=== PATIENT | female | born 1955 | race Caucasian/White ===

== ENCOUNTER 2024-03-13 20:48 | Outpatient (OUT) | payer MEDICARE, SELFPAY | END 2024-03-13 20:49 | disposition home or self-care (01) | LOC: SLEEP 20:49 | PROVIDERS: PCP Internal Medicine; Visit Provider Internal Medicine | DX: G47.33 Obstructive sleep apnea (adult) (pediatric) (principal); G47.11 Idiopathic hypersomnia with long sleep time | CPT/HCPCS: 95810 ==

== ENCOUNTER 2024-04-24 12:36 | Outpatient (OUT) | payer MEDICARE, SELFPAY ==
--- NOTE | 2024-04-24 12:42 | CT_ITS ---
[address] [address] Patient Name: NETTA STUART MRN: [id number] date: 1955 Sex: F Assigned Patient Location: CT Current Patient Location: CT Accession/Order Number: [id number] Exam Date: 04/24/2024 12:50 Report Date: 04/24/2024 15:11 At the request of: DENNIS CONKLIN Procedure: CT lung screening low-dose EXAMINATION: CT lung screening low-dose HISTORY: lung cancer screening COMPARISON: 03/15/2023 TECHNIQUE: Axial, Coronal, and Sagittal images were created without the administration of IV contrast material. Dose reduction techniques were achieved by using automated exposure control and/or adjustment of mA and/or kV according to patient size and/or use of iterative reconstruction technique. FINDINGS: LUNGS: Moderate diffuse bilateral centrilobular emphysema with upper lobe predominance. Scattered subcentimeter pulmonary nodules. New 6.4 mm groundglass opacity noted in the right upper lobe axial image #59. No bronchiectasis or peribronchial thickening. Calcified tracheal bronchial tree. Stable scattered linear opacities likely atelectasis and/or scar PLEURA: No mass, effusion, or pneumothorax. VASCULATURE: No abnormality. HALI: No mass or pathologic adenopathy. MEDIASTINUM: No mass or pathologic adenopathy. CARDIAC: No enlargement, pericardial thickening, or significant calcification. CORONARY ARTERIES: Coronary calcifications are mild. AORTA: No aneurysm or dissection. CHEST WALL: No mass or axillary adenopathy BONES: No bone lesion or fracture. Bilateral shoulder arthroplasty LIMITED ABDOMEN: No suspicious findings. Limited images of the upper abdomen. OTHER: Negative. CT/CT lung screening low-dose IMPRESSION: LUNG SCREENING: Lung-RADS Category 2- Benign Appearance or Behavior. Nodules with a very low likelihood of becoming a clinically active cancer due to size or lack of growth. 2. Continue annual screening with LDCT in 12 months. Electronically authenticated by: ALMA BANEGAS Date: 04/24/2024 15:11
== END 2024-04-24 12:37 | disposition home or self-care (01) ==
LOC: CT 12:36
PROVIDERS: Visit Provider Internal Medicine
DX: Z87.891 Personal history of nicotine dependence (principal); Z12.2 Encounter for screening for malignant neoplasm of respiratory organs
CPT/HCPCS: 71271

== ENCOUNTER 2025-04-03 10:16 | Outpatient (OUT) | payer MEDICARE, SELFPAY ==
[2025-04-03 10:36] LABS: Basophils Percent Auto 0.3 % (0.2-2.0); Eosinophils Percent Auto 0.4 % (0.9-7.0); Hematocrit 38.4 % (36.0-48.0); Hemoglobin 12.7 g/dL (12.0-16.0); Immature Granulocytes Pct Auto 1.1 % (0.0-0.5); Lymphocytes Absolute Auto 1.1 10^3/uL (1.2-3.8); Lymphocytes Percent Auto 12.6 % (20.5-60.0); Mean Corpuscular HGB Conc 33.1 g/dL (29.9-35.2); Mean Corpuscular Hemoglobin 31.8 pg (26.7-34.0); Mean Platelet Volume 9.9 fL (9.5-13.5); Monocytes Absolute Auto 0.6 10^3/uL (0.3-0.8); Monocytes Percent Auto 6.7 % (1.7-12.0); Neutrophils Absolute Auto 7.1 10^3/uL (1.4-6.5); Neutrophils Percent Auto 78.9 % (43.0-75.0); Platelet Count 250 10^3/uL (150-450); Red Cell Distribution Width 13.3 % (11.0-15.0)
== END 2025-04-03 10:17 | disposition home or self-care (01) ==
LOC: LAB 10:19
PROVIDERS: Visit Provider Internal Medicine
DX: J43.2 Centrilobular emphysema (principal); A49.8 Other bacterial infections of unspecified site
CPT/HCPCS: 36415; 85025; 87015; 87070; 87077; 87102; 87106; 87116; 87186; 87205; 87206

== ENCOUNTER 2025-04-08 14:21 | Outpatient (OUT) | payer MEDICARE, SELFPAY ==
--- NOTE | 2025-04-08 14:24 | CT_ITS ---
The [address] [address] Patient Name: NETTA STUART MRN: [id number] date: 1955 Sex: F Assigned Patient Location: CT Current Patient Location: CT Accession/Order Number: [id number] Exam Date: 04/08/2025 15:09 Report Date: 04/08/2025 15:16 At the request of: DENNIS CONKLIN DO Procedure: CT chest wo con CT chest wo con 04/08/2025 2:34 PM SIGN AND SYMPTOMS: Chronic cough for 7 months TECHNIQUE: Multidetector CT axial slices of the chest were obtained without IV contrast. Multiplanar reformats were performed and viewed on a separate workstation and reviewed to further define anatomy and possible pathology. CT was performed with one or more of the following dose reduction techniques: Automated exposure control, adjustment of the mA and/or kV according to patient size, or use of iterative reconstruction technique. COMPARISON: 04/24/2024.. FINDINGS: Lower neck: Thyroid gland within normal limits, no supraclavicle adenopathy. Vessels: Atherosclerotic changes are noted in the thoracic aorta and coronary arteries. Mediastinum and Sherin: There is a small hiatal hernia with gastric fundus in the lower mediastinum. Heart: Normal size. No pericardial effusion. Airways: Within normal limits Lungs: There is a new pleural-based area of consolidation/groundglass attenuation posteriorly and medially in the right lower lobe emphysematous changes are noted throughout the lung parenchyma. There is linear scarring in the right middle lobe. There is nodular opacity in the left lower lobe which is noncalcified measuring 1.4 cm in greatest dimension. There is a second pleural-based nodular area measuring 2.3 cm in greatest dimension adjacent to this. There are subtle areas of groundglass attenuation in the left lower lobe which are new. Pleura: Within normal limits. Chest Wall: Within normal limits. Upper Abdomen: Postsurgical changes suggest prior gastric bypass. There is evidence of prior cholecystectomy. Bones: Degenerative changes are noted in the thoracic spine. There is bilateral shoulder arthroplasty hardware. CT/CT chest wo con IMPRESSION: There is nodular opacity in the left lower lobe which is noncalcified measuring 1.4 cm in greatest dimension. There is a second pleural-based nodular area measuring 2.3 cm in greatest dimension adjacent to this. Follow-up with nuclear medicine PET CT is recommended as malignancy is not excluded. Additional areas of groundglass attenuation and pleural based scarring are noted to be infectious or inflammatory in nature. These are new when compared to the prior exam. Impression dictated by: Joey Miner M.D. 04/08/2025 3:16 PM Dictation Location: [place] [address] Electronically authenticated by: [id number] Y Date: 04/08/2025 15:16
== END 2025-04-08 14:22 | disposition home or self-care (01) ==
LOC: CT 14:21
PROVIDERS: Visit Provider Internal Medicine
DX: R91.8 Other nonspecific abnormal finding of lung field (principal)
CPT/HCPCS: 71250

== ENCOUNTER 2025-04-24 09:39 | Outpatient (OUT) | payer MEDICARE, SELFPAY ==
--- OUTSIDE RECORDS SUMMARY | 2025-04-24 09:46 | XMS_ITS | CCD ---
Author Organization [facility] Care Team Providers Care Human Resources Safety Manager Name Role Phone ROBEL SHANNON Primary Care Unavailable SELF, REFERRED Referring Unavailable ELTAHAWY, EHAB A Admitting Unavailable ELTAHAWY, EHAB A Attending Unavailable SAMSA ., DENNIS Admitting Unavailable SAMSA ., DENNIS Attending Unavailable SAMSA ., DENNIS Consulting Unavailable SAMSA ., DENNIS Admitting Unavailable SAMSA ., DENNIS Attending Unavailable SHIVA, DR ANDERSON Primary Care Unavailable MERRILLEBGWEN, DR SANGEETHA Abebe Consulting Unavailable SAMSA ., DENNIS Consulting Unavailable NIVIA, DR DE LA FUENTE Admitting Unavailable NIVIA, DR DE LA FUENTE Attending Unavailable SHIVA, DR ANDERSON Primary Care Unavailable NIVIA, DR DE LA FUENTE Consulting Unavailable DO, ERNEE Admitting Unavailable RENEE STORY Attending Unavailable SHIVA, DR ANDERSON Primary Care Unavailable RENEE STORY Consulting Unavailable SAMSA ., DENNIS Admitting Unavailable SAMSA ., DENNIS Attending Unavailable BASSAM, DR ALMA Hernández Consulting Unavailable SAMSA ., DENNIS Consulting Unavailable Marcellus Dumas Unavailable Brigitte Mariano Unavailable LOVE Mariano Attending Provider Devin Raymundo Primary Care Provider ESME Quevedo Attending Provider Vicky Quevedo Attending Unavailable Vicky Quevedo Admitting Unavailable Brigitte Mariano Admitting Unavailable Brigitte Mariano Attending Unavailable SHAHBAZ AMIN Attending Unavailable ELOISA, SABEENA WHITESIDE Referring Unavailable ROBEL SHANNON JR Primary Care Unavailable ELOISA SABEENA WHITESIDE Referring Unavailable ROBEL SHANNON JR Primary Care Unavailable ELOISA, SABEENA WHITESIDE Referring Unavailable ROBEL SHANNON JR Primary Care Unavailable ROBEL SHANNON JR Primary Care Unavailable ADONAY OBANDO Attending Unavailable MISSY HOWELL Attending Unavailable MISSY HOWELL Referring Unavailable VALONE JR, ROBEL Jerry Primary Care Unavailable ELOISA, SABCHEYENNEA WHITESIDE Referring Unavailable VALONE JR, ROBEL L Primary Care Unavailable ELOISA, SABEENA WHITESIDE Referring Unavailable VALONE JR, ROBEL L Primary Care Unavailable ELOISA, SABEENA WHITESIDE Referring Unavailable VALONE JR, ROBEL L Primary Care Unavailable VALONE JR, ROBEL L Referring Unavailable VALONE JR, ROBEL L Primary Care Unavailable VALONE, ROBEL L Referring Unavailable SHLOMO SEE Attending Unavailable Devin Raymundo Primary Care Provider [phone] AURELIA FRENCH Attending Unavailable VALONE JR, ROBEL L Referring Unavailable VALONE JR, ROBEL L Primary Care Unavailable ELOISA, SHAHBAZ MCGRATHBAL Attending Unavailable VALONE JR, ROBEL L Referring Unavailable VALONE JR, ROBEL L Primary Care Unavailable AURELIA FRENCH Attending Unavailable VALONE JR, ROBEL L Referring Unavailable VALONE JR, ROBEL L Primary Care Unavailable Valone ., Robel RIVERA Primary Care Provider RONALDO KNOX Attending Unavailable RONALDO KNOX Attending Unavailable OTF STONER Attending Unavailable VALONE JR, ROBEL L Referring Unavailable VALONE JR, ROBEL L Primary Care Unavailable Medications Current Medications Medication Drug Class(es) Dates Sig (Normalized) Sig (Original) [id number] 200 actuat albuterol 0.09 mg/actuat metered dose inhaler (16 sources) beta2-Adrenergic Agonist Start: 06-03-2024 Albuterol Sulfate Active INHALATION June 03, 2024 12:00am Start: 02-07-2006 ALBUTEROL 90 M CG/ACTUATION AEROSOL INHALER Use as directed four(4) times daily. 0 02/07/2006 Active take 2 puff(s) by in halation every four hours as needed albuterol (PROVENTIL HFA;VENTOLIN HFA) 90 mcg/actuation inhaler Inhale 2 puffs every 4 (four) hours as needed. Active ProAir HFA Activ e Comment on above: Use as directed four (4) times daily. ARIPiprazole 5 mg oral tablet (16 sources) Atypical Antipsychotic Start: take 5 mg by mouth once daily Aripiprazole Active 5 MG PO Daily June 03, 2024 12:00am Comment on above: Take 5 mg by mouth. atenolol 25 mg oral tablet (2 sources) beta-Adrenergic [place] Start: 4 take 25 mg by mouth twice daily Atenolol Active 25 MG PO Twice daily June 03, 2024 12:00am 24 hr buPROPion hydrochloride 150 mg extended release oral tablet (13 sources) Aminoketone Start: 4 take 300 mg by mouth once daily Bupropion Hcl Active 300 MG PO Daily June 03, 2024 12:00am Start: 02-07-2006 BUPROPION SR 1 50 MG TAB 0 02/07/2006 Active take 1 tablet by shoaib th every twenty-four hours buPROPion XL (WELLBUTRIN XL) 150 mg 24 hr tablet Oral for 30 Days Active Calcium Carbonate (11 sources) calcium carbonat e (CALTRATE 600 ORAL) Take 1,200 mg by mouth. Active calcium carbonat e (CALTRATE 600 ORAL) Take 1,200 mg by mouth. 0 Active take 2 tablets by mouth twice da mannie Caltrate 600 2 tablets Orally Twice a day Active carbidopa 25 mg / levodopa 100 mg oral tablet (20 sources) Aromatic Amino Acid Decarboxylation Inhibitor, Aromatic Amino Acid Start: 09-27-2024 End: 12-14-2025 take 1.5 tablets by mouth three times daily, then take 6 tablets by mouth in the morning, then take 10 tablets by mouth in the morning, then take 2 tablets by mouth in the evening carbidopa-levodopa (SINEMET) 25-100 mg per tablet Indications: Parkinson's disease without dyskinesia, with fluctuating manifestations (CMS-HCC) Take 1.5 tablets by mouth 3 (three) times a day for 360 days. 6 AM, 10 AM AND 2 PM 405 tablet 3 12/19/2024 12/14/2025 Active Start: 09-27-2024 End: 09-22-2025 take 1 tablet by mouth three times daily in the morning, then take 2 tablets by mouth in the evening carbidopa-levodopa (SINEMET CR) 25-100 mg per CR tablet Indications: Parkinson's disease without dyskinesia, with fluctuating manifestations (CMS-HCC) Take 1 tablet by mouth 3 (three) times a day for 360 days. 6 AM, 10 AM AND 2 PM 270 tablet 3 09/27/2024 09/22/2025 Active Start: 06-03-2024 Carbidopa-Levo dopa Active TAB PO June 03, 2024 12:00am Start: 03-26-2024 End: 09-27-2024 carbidopa-levodopa (SINEMET) 25-100 mg per tablet Indications: Parkinson's disease without dyskinesia, with fluctuating manifestations (CMS-HCC) Take 1 tablet four times daily (take 4 hours apart). 360 tablet 3 03/26/2024 09/27/2024 Discontinued (Reorder) Start: 03-26-2024 End: 09-27-2024 carbidopa-levodopa (SINEMET CR) 25-100 mg per CR tablet Indications: Parkinson's disease without dyskinesia, with fluctuating manifestations (CMS-HCC) Take 1 tablet four times daily (take 4 hours apart). 360 tablet 3 03/26/2024 09/27/2024 Discontinued (Reorder) Start: 09-25-2023 End: 03-26-2024 take 1 tablet by mouth three times daily carbidopa-levodopa (SINEMET) 25-100 mg per tablet Indications: Parkinson's disease (CMS-HCC) TAKE 1 TABLET BY MOUTH THREE TIMES DAILY 270 tablet 3 09/25/2023 03/26/2024 Discontinued Start: 09-11-2019 End: 03-26-2024 take 1 tablet by mouth three times daily carbidopa-levodopa (SINEMET CR) 25-100 mg per CR tablet Indications: Parkinson's disease TAKE 1 TABLET BY MOUTH THREE TIMES DAILY 270 tablet 3 09/25/2023 Active Carbidopa-Levodo pa 25-100 MG 1 tablet Orally as directed Active Comment on above: Take 1 tablet by shoaib th three times daily. cephalexin 500 mg oral capsule (1 source) Cephalosporin Antibacterial Start: 0 take 1 capsule by mouth every twelve hours clonazePAM 0.5 mg oral tablet (15 sources) Benzodiazepine Start: 3 End: 5 take 1 tablet by mouth once daily at bedtime clonazePAM (KlonoPIN) 0.5 mg tablet Indications: REM sleep behavior disorder TAKE ONE TABLET BY MOUTH ONCE A DAY AT BEDTIME 30 MINUTES BEFORE BEDTIME 90 tablet 3 10/18/2024 Active take 1 tablet by shoaib th every twenty-four hours clonazePAM 0.5 MG 1 tablet at bedtime Orally Once a day Active dexamethasone 4 mg oral tablet (2 sources) Corticosteroid Start: 04-05-2024 End: 07-04-2024 take 1 tablet by mouth every week dexAMETHasone (DECADRON) 4 mg tablet Take 1 tablet (4 mg total) by mouth once a week for 90 days. 12 tablet 04/05/2024 07/04/2024 Active famotidine 40 mg oral tablet (13 sources) Histamine-2 Receptor Antagonist Start: 06-06-2022 take 1 tablet by mouth once daily famotidine (PEPCID) 40 mg tablet Take 1 tablet (40 mg total) by mouth nightly. 06/06/2022 Active FLUoxetine 20 mg oral capsule (6 sources) Serotonin Reuptake Inhibitor Start: 03-08-2018 FLUoxetine (PROZAC) 20 mg capsule Take 2 capsules by mouth. 03/08/2018 Active take 1 capsule by mo uth every twenty-four hours FLUoxetine HCl 40 MG 1 tablet Orally Onc e a day Active take 1 tablet by shoaib th every twenty-four hours FLUoxetine HCl 20 MG 1 tablet Orally Onc e a day Active Comment on above: Take 2 capsules by m outh. fluticasone propionate 0.05 mg/actuat metered dose nasal spray (15 sources) Corticosteroid Start: 06-03-2024 Fluticasone Propionate Active INTRANASAL June 03, 2024 12:00am Start: 09-20-2022 take 2 spray(s) nasa l route once daily fluticasone propionate (FLONASE) 50 mcg/actuation nasal spray USE 2 SPRAYS IN EACH NOSTRIL ONCE DAILY DIRECTED 09/20/2022 Active Start: 02-07-2006 End: 04-22-2021 FLONASE 50 MCG/ACTUATION ANNAMARIA AL SPRAY AEROSOL Use daily as directed. 0 02/07/2006 04/22/2021 Discontinued Fluticasone Prop ionate Active Comment on above: Use daily as directe d. 30 actuat fluticasone furoate 0.1 mg/actuat / umeclidinium 0.0625 mg/actuat / vilanterol 0.025 mg/actuat dry powder inhaler (2 sources) Anticholinergic, Corticosteroid, beta2-Adrenergic Agonist Start: 03-13-2019 take 1 puff(s) by mouth once daily fluticasone-umeclid in-vilanter (TRELEGY ELLIPTA) 100-62.5-25 mcg INL 1 PUFF PO QD 03/13/2019 Active Comment on above: INL 1 PUFF PO QD Fluticasone-Umeclidin- Vilanter (2 sources) Start: 06-03-2024 Fluticasone-Umeclid in-Vilanter (Trelegy Ellipta) 200-62.5-25 mcg blister with device Active INHALATION June 03, 2024 12:00am 24 hr metoprolol succinate 25 mg extended release oral tablet (15 sources) beta-Adrenergic [place] Start: 06-03-2024 take 25 mg by mouth once daily Metoprolol Succinate Active 25 MG PO Daily June 03, 2024 12:00am Start: 07-03-2022 take 1 tablet by shoaib every twenty-four hours in the morning metoprolol succinate XL (TOPROL XL) 25 mg 24 hr tablet Take 1 tablet (25 mg total) by mouth in the morning. 07/03/2022 Active Start: 02-07-2006 End: 04-22-2021 TOPROL XL 50 MG 24 HR TAB 2x daily 0 02/07/2006 04/22/2021 Discontinued take 1 tablet by shoaib every twenty-four hours Metoprolol Succinate ER 25 MG 1 tablet Orally Once a day Active Comment on above: 2x daily 24 hr mirabegron 50 mg extended release oral tablet (10 sources) beta3-Adrenergic Agonist Start: 06-03-2024 take 1 tablet by mouth once daily Mirabegron (Myrbetriq) 50 mg tablet extended release 24 hr Active 50 MG PO Daily June 03, 2024 12:00am take 2 tablets by mo [facility] every twenty-four hours in the morning MYRBETRIQ 25 mg tablet extended release 24 hr Take 2 tablets (50 mg total) by mouth in the morning. Active montelukast 10 mg oral tablet (13 sources) Leukotriene Receptor Antagonist Start: 06-26-2022 take 1 tablet by mouth in the morning montelukast (SINGULAIR) 10 mg tablet Take 1 tablet (10 mg total) by mouth in the morning. 06/26/2022 Active nitrofurantoin, macrocrystals 25 mg / nitrofurantoin, monohydrate 75 mg oral capsule (2 sources) Nitrofuran Antibacterial Start: 06-30-2023 take 1 capsule by mouth every twelve hours Macrobid 100 MG 1 cap(s) Orally bid for 5 day(s) Jun, Active pantoprazole 40 mg delayed release oral tablet (15 sources) Proton Pump Inhibitor Start: 06-03-2024 Pantoprazole Active MG PO June 03, 2024 12:00am Start: 05-16-2011 End: 01-13-2024 take 1 tablet by mouth in the morning pantoprazole (PROTONIX) 40 mg EC tablet Take 1 tablet (40 mg total) by mouth in the morning for 180 days. 180 tablet 07/17/2023 Active Comment on above: Take 1 tablet by shoaib th once daily. phenazopyridine hydrochloride 200 mg oral tablet (2 sources) Start: 3 take 1 tablet by mouth every eight hours Pyridium 200 MG 1 tablet after meals Orally Three times a day for 2 day(s) Jun, Active pramipexole dihydrochloride 0.5 mg oral tablet (15 sources) Nonergot Dopamine Agonist Start: 4 take 1 mg by mouth twice daily Pramipexole Active 1 MG PO Twice daily June 03, 2024 12:00am Start: 09-11-2019 take 2 tablets by mo [facility] twice daily pramipexole (MIRAPEX) 0.5 mg tablet Indications: Parkinson's disease ([facility]) TAKE 2 TABLETS BY MOUTH TWICE DAILY 360 tablet 3 09/25/2023 Active take 1 tablet by shoaib th every twenty-four hours Pramipexole Dihydrochloride 0.5 MG 1 tablet Orally Once a day Active Pramipexole Dihy drochloride ER Active Comment on above: Take 1 mg by mouth t wice daily. rosuvastatin calcium 20 mg oral tablet (15 sources) HMG-CoA Reductase Inhibitor Start: 4 take 20 mg by mouth once daily Rosuvastatin Active 20 MG PO Daily June 03, 2024 12:00am Start: 06-21-2020 rosuvastatin ( CRESTOR) 10 mg tablet At bedtime 06/21/2020 Active Comment on above: At bedtime spironolactone 50 mg oral tablet (9 sources) Aldosterone Antagonist Start: 06-03-20 24 take 50 mg by mouth once daily Spironolactone Active 50 MG PO Daily June 03, 2024 12:00am Start: 03-13-2024 take 0.5 tablet by m out in the morning spironolactone (ALDACTONE) 50 mg tablet Take 0.5 tablets (25 mg total) by mouth in the morning. 25 mg daily, if after daily weigh in you are 3 pounds heavier take 50 mg . 03/13/2024 Active Start: 03-13-2024 take 1 tablet by shoaib once daily in the morning spironolactone (ALDACTONE) 50 mg tablet TAKE 1 TABLET BY MOUTH EVERY MORNING. HOLD IF BLOOD PRESSURE IS LESS THAN 100 03/13/2024 Active torsemide 20 mg oral tablet (2 sources) Loop Diuretic Start: 06-03-2024 take 20 mg by mouth once daily Torsemide Active 20 MG PO Daily June 03, 2024 12:00am traZODone hydrochloride 150 mg oral tablet (15 sources) Serotonin Reuptake Inhibitor Start: 06-03-2024 take 150 mg by mouth once daily Trazodone Active 150 MG PO Daily June 03, 2024 12:00am Start: 03-31-2020 take 1 tablet by shoaib once daily at bedtime traZODone (DESYREL) 50 mg tablet TK 1 T PO QHS 03/31/2020 Active take 3 tablets by mo [facility] once daily traZODone (DESYREL) 50 mg tablet Take 3 tablets (150 mg total) by mouth nightly. Active take 1 tablet by shoaib every twenty-four hours traZODone HCl 150 MG 1 tablet at bedtime Orally Once a day Active Comment on above: TK 1 T PO QHS Trelegy Ellipta (3 sources) Trelegy Ellipta Active TRELEGY ELLIPTA 200-62.5-25 mcg blister with device (8 sources) Start: 07-13-2022 take 1 puff(s) by mouth once daily TRELEGY ELLIPTA 200-62.5-25 mcg blister with device INHALE 1 PUFF BY MOUTH EVERY DAY. RINSE AFTER USE 07/13/2022 Active Start: 07-13-2022 take 1 puff(s) by mo uth once daily TRELEGY ELLIPTA 200-62.5-25 mcg blister with device INHALE 1 PUFF BY MOUTH EVERY DAY. RINSE AFTER USE 0 07/13/2022 Active 24 hr venlafaxine 75 mg extended release oral capsule (13 sources) Serotonin and Norepinephrine Reuptake Inhibitor Start: 06-03-2024 take 75 mg by mouth once daily Venlafaxine Active 75 MG PO Daily June 03, 2024 12:00am take 2 capsules by m outh every twenty-four hours in the morning venlafaxine XR (EFFEXOR-XR) 37.5 mg 24 h r capsule Take 2 capsules (75 mg total) by mouth in the morning. Active take 1 capsule by mo uth every twenty-four hours Effexor XR 75 MG 1 capsule with food Orally Once a day Active Completed/Discontinued Medications Medication Drug Class(es) Dates Sig (Normalized) Sig (Original) aspirin 81 mg chewable tablet (2 sources) Platelet Aggregation Inhibitor, Nonsteroidal Anti-inflammatory Drug Start: 08-04-2020 End: 04-22-2021 take 1 tablet by mouth twice daily aspirin 81 mg chewable tablet Take 1 tablet by mouth twice daily for 14 days. 28 tablet 08/04/2020 04/22/2021 Discontinued take 1 tablet by shoaib every twenty-four hours Aspirin 81 MG 1 tablet Orally Once a day Active docusate sodium 100 mg oral capsule (1 source) Start: 08-04-2020 End: 04-22-2021 take 1 capsule by mouth twice daily docusate sodium (COLACE) 100 mg capsule Take 1 capsule by mouth twice daily. 60 capsule 08/04/2020 04/22/2021 Discontinued Durolane (3 sources) Start: 05-04-2023 Durolane Apr, 60 mg estrogens, conjugated (long-term) 0.625 mg/ml vaginal cream (2 sources) Estrogen Start: 05-16-2011 End: 04-22-2021 conjugated estrogens (PREMARIN) VAGINAL vaginal cream Use 0.25 Applicators vaginally twice a week. for atrophy and dyspareunia. AUDRA 1 Tube 4 05/16/2011 04/22/2021 Discontinued Comment on above: Use 0.25 Applicators vaginally twice a week. for atrophy and dyspareunia. AUDRA gabapentin 100 mg oral capsule (2 sources) Anti-epileptic Agent Start: 05-16-2011 End: 04-22-2021 take 1 capsule by mouth three times daily gabapentin (NEURONTIN) 100 mg ORAL capsule Take 1 capsule by mouth three times daily. 0 05/16/2011 04/22/2021 Discontinued Comment on above: Take 1 capsule by mo uth three times daily. mupirocin 0.02 mg/mg topical ointment (1 source) RNA Synthetase Inhibitor Antibacterial Start: 07-30-2020 End: 08-04-2020 mupirocin (BACTROBAN) 2 % ointment Apply 0.5 inch with cotton swab (Q-tip) to each nostril in the morning and evening for 5 days prior to and including day of surgery. 22 g 0 07/30/2020 08/04/2020 Comment on above: Apply 0.5 inch with cotton swab (Q-tip) to each nostril in the morning and evening for 5 days prior to and including day of surgery. phendimetrazine tartrate 35 mg oral tablet (2 sources) Sympathomimetic Amine Anorectic Start: 05-16-2011 End: 04-22-2021 Phendimetrazine Tartrate (BONTRIL PDM) 35 mg ORAL Tab Take by mouth daily at bedtime. 0 05/16/2011 04/22/2021 Discontinued Comment on above: Take by mouth daily at bedtime. temazepam 30 mg oral capsule (2 sources) Benzodiazepine Start: 05-16-2011 End: 04-22-2021 temazepam (RESTORIL) 30 mg ORAL Cap Take by mouth at bedtime as needed. 0 05/16/2011 04/22/2021 Discontinued Comment on above: Take by mouth at bed time as needed. Problems Active Problems Problem Classification Problem Date Documented Date Episodic/Chronic Anxiety disorders (2 sources) Generalized anxiety disorder; Translations: [Generalized anxiety disorder] Onset: 04-04-2023 Chronic Biliary tract disease (1 source) Disease of biliary tract, unspecified; Translations: [Disease of biliary tract, unspecified] Onset: 06-07-2024 Chronic Cancer of cervix (2 sources) Malignant tumor of cervix; Translations: [Malignant neoplasm of cervix uteri, unspecified] Onset: 07-28-2020 07-28-2020 Chronic Chronic obstructive pulmonary disease and bronchiectasis (13 sources) Acute exacerbation of chronic obstructive airways disease; Translations: [Chronic obstructive pulmonary disease with (acute) exacerbation] Onset: 03-29-2017 07-28-2020 Chronic Coronary atherosclerosis and other heart disease (4 sources) Atherosclerotic heart disease of [place] coronary artery without angina pectoris; Translations: [ASHD [place] CA W/O ANGINA PECTORIS] Onset: 06-02-2022 Chronic Disorders of lipid metabolism (2 sources) Hyperlipidemia; Translations: [Hyperlipidemia, unspecified] Onset: 07-28-2020 07-28-2020 Chronic Esophageal disorders (10 sources) Gastro-esophageal reflux disease with esophagitis; Translations: [Chronic reflux esophagitis] Onset: 03-29-2017 07-28-2020 Chronic Essential hypertension (10 sources) Hypertensive disorder; Translations: [Essential (primary) hypertension] Onset: 03-29-2017 07-28-2020 Chronic Genitourinary symptoms and ill-defined conditions (8 sources) Dysuria; Translations: [Hematuria, unspecified] Onset: 06-30-2023 Episodic Miscellaneous mental health disorders (2 sources) Primary insomnia; Translations: [Primary insomnia] Onset: 08-01-2024 Chronic Mood disorders (20 sources) Depressive disorder; Translations: [Depression] Onset: 03-29-2017 07-28-2020 Chronic Osteoarthritis (5 sources) Osteoarthritis of right knee joint; Translations: [Unilateral primary osteoarthritis, right knee] Onset: 08-04-2020 Chronic Other hereditary and degenerative nervous system conditions (1 source) Intention tremor; Translations: [Other specified forms of tremor] 03-26-2024 Chronic Other nervous system disorders (3 sources) Chronic pain; Translations: [Other chronic pain] Chronic Other nervous system disorders (1 source) Other chronic pain Chronic Other nervous system disorders (2 sources) Chronic inflammatory demyelinating polyneuritis; 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] Onset: 04-05-2024 Chronic Other nervous system disorders (1 source) Idiopathic progressive neuropathy Onset: 04-05-2024 Chronic Other nervous system disorders (9 sources) Spinal cord disease; Translations: [Disease of spinal cord, unspecified] Onset: 07-17-2023 07-17-2023 Chronic Other nervous system disorders (1 source) Chronic inflammatory demyelinating polyradiculoneuropath y; 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] 04-08-2024 Chronic Other non-traumatic joint disorders (1 source) Rotator cuff arthropathy of left shoulder; Translations: [Other specific arthropathies, not elsewhere classified, left shoulder] 07-31-2020 Chronic Other non-traumatic joint disorders (1 source) Chronic pain of left upper limb; Translations: [Pain in left shoulder] 07-31-2020 Episodic Parkinson`s disease (13 sources) Parkinson's disease; Translations: [Parkinson's disease] Onset: 09-03-2018 07-28-2020 Chronic Parkinson`s disease (5 sources) Parkinson`s disease; Translations: [Parkinson's disease without dyskinesia, with fluctuations] Onset: 09-03-2018 Residual codes; unclassified (4 sources) REM sleep behavior disorder; Translations: [REM sleep behavior disorder] 03-27-2024 Chronic Screening and history of mental health and substance abuse codes (4 sources) Personal history of nicotine dependence; Translations: [PERSONAL HISTORY OF NICOTINE DEPEND] Onset: 03-15-2023 Episodic Unclassified (1 source) CONTACT W/AND (SUSP) EXPOS COVID-19; Translations: [CONTACT W/AND (SUSP) EXPOS COVID-19] Onset: 05-02-2022 Unclassified (1 source) Painful Urination Onset: 04-30-2024 Unclassified (1 source) Urinary Problem Onset: 04-30-2024 Urinary tract infections (3 sources) Urinary tract infection, site not specified; Translations: [Acute cystitis with hematuria] Onset: 04-30-2024 Episodic Past or Other Problems Problem Classification Problem Date Documented Da te Episodic/Chronic Cancer of other female genital organs (3 sources) Personal history of malignant neoplasm of other female genital organs; Translations: [History of malignant neoplasm of vulva] Onset: 04-05-2024 04-05-2024 Episodic Deficiency and other anemia (10 sources) Anemia; Translations: [Anemia, unspecified] Onset: 03-29-2017 07-28-2020 Episodic Mood disorders (8 sources) Mood disorders Onset: 04-05-2024 Resolved: 09-27-2024 09-27-2024 Nonmalignant breast conditions (10 sources) Breast lump; Translations: [Unspecified lump in unspecified breast] Onset: 03-29-2017 07-28-2020 Episodic Other aftercare (2 sources) termination clerk (current) use of systemic steroids; Translations: [skilled nursing (current) use of systemic steroids] Onset: 04-05-2024 Episodic Other aftercare (1 source) Long-term current use of systemic steroid; Translations: [termination clerk (current) use of systemic steroids] 04-05-2024 Episodic Other connective tissue disease (2 sources) Rotator cuff arthropathy of left shoulder; Translations: [Unspecified rotator cuff tear or rupture of left shoulder, not specified as traumatic] Onset: 07-05-2020 07-05-2020 Episodic Other female genital disorders (2 sources) Dysplasia of vulva; 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, unspecified] Onset: 07-28-2020 07-28-2020 Episodic Other gastrointestinal disorders (2 sources) History of bypass of stomach; Translations: [Bariatric surgery status] Onset: 07-28-2020 07-28-2020 Episodic Other lower respiratory disease (4 sources) Shortness of breath; Translations: [SHORTNESS OF BREATH] Onset: 03-30-2022 Episodic Other nervous system disorders (10 sources) Tremor; Translations: [Tremor, unspecified] Onset: 09-03-2018 07-28-2020 Episodic Other non-traumatic joint disorders (9 sources) Pain in right knee; Translations: [Pain in joint, lower leg] Onset: 07-17-2023 Episodic Other screening for suspected conditions (not mental disorders or infectious disease) (14 sources) Abnormal result of other cardiovascular function study; Translations: [Abnormal level of other drugs, medicaments and biological substances in specimens from other organs, systems and tissues] Onset: 03-29-2017 Episodic Residual codes; unclassified (2 sources) Patient encounter status; Translations: [Encounter for cosmetic surgery] Onset: 05-16-2011 05-16-2011 Episodic Results Test Name Value Interpretation Reference Range Facility Office Visiton 03-31-2025 Follow-up visit [id number] Raegan Rabago 1955 Provider Department Center 03/31/2025 RONALDO GALARZA [facility] No family history on file Level of Service:01442 MT OFFICE/OUTPATIENT ESTABLISHED LOW MDM 20 MIN Reason for Visit and Comments: Med Management [[id number]] [facility] 03-24-2025 Refill [id number] Raegan Rabago 1955 Provider Department Center 03/24/2025 RONALDO GALARZA [facility] No family history on file Reason for Visit and Comments: Med Refill [[id number]] [facility] Ref[place] 03-22-2025 Refill [id number] Raegan Rabago B 1955 Date Provider Department Center 03/22/2025 404-RAISMARY ELLENNA [facility] No family history on file Reason for Visit and Comments: Med Refill [[id number]] [facility] Ref[place] 03-02-2025 Refill [id number] Raegan Rabago B 1955 Date Provider Department [place] 03/02/2025 404-RAIS, RONALDO [facility] No family history on file Reason for Visit and Comments: Med Refill [[id number]] [facility] Ref[place] 11-14-2024 Refill [id number] Raegan Rabago B 1955 Provider Department [place] 11/14/2024 404-RAIS, RONALDO [facility] No family history on file Reason for Visit and Comments: Med Refill [[id number]] [facility] Office Vis[place] 08-01-2024 Follow-up visit [id number] Raegan Rabago B 1955 Date Provider Department [place] 08/01/2024 404-RAISMARY ELLENNA [facility] No family history on file Level of Service:11069 MT OFFICE/OUTPATIENT ESTABLISHED MOD MDM 30 MIN Reason for Visit and Comments: Psychiatric Evaluation [[id number]] [facility] Ref[place] 06-17-2024 Refill [id number] Raegan Rabago B 1955 Date Provider Department Center 06/17/2024 [facility]EN VU [facility] PT [place] No family history on file Reason for Visit and Comments: Med Refill [[id number]] [facility] MR MRCP WITH MRI ABD WO CONT on 06-11-2024 MR MRCP WITH MRI ABD WO CONT MR MRCP WITH MRI ABD WO CONT MR MRCP WITH MRI ABD WO CONT HISTORY: Biliary dilation, extra hepatic biliary dilation, history of cancer of vulva, disorder of common bile duct COMPARISON: CT abdomen and pelvis 04/30/2024 TECHNIQUE: Multiplanar, multisequence MR imaging of the abdomen was performed without administration of intravenous contrast as part of an MRCP study. 3-D rendering technique was also performed on a remote workstation. FINDINGS: Visible lung bases clear. Chronic elevation of the right hemidiaphragm. The visualized portions of the heart and pericardium are unremarkable. Abdominal aortic aneurysm is nonaneurysmal. Noncirrhotic morphology of the liver. No hepatic lesions identified, within the limitations of noncontrast technique. Gallbladder surgically absent. Redemonstration of mild intrahepatic and extrahepatic biliary dilation. Common bile duct measures up to 15 mm. No focal filling defect within the common bile duct. Multiple tiny cystic lesions within the body and tail the pancreas measuring up to 3 mm. Main pancreatic duct is normal in course and caliber. The splenic parenchyma is unremarkable. Adrenal glands unremarkable. Bilateral simple renal cysts require no follow-up. Scattered colonic diverticula. Prominent 9 mm portacaval lymph node, unchanged, nonspecific. 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 IMPRESSION: * Redemonstration of mild intrahepatic and extrahepatic biliary dilation, likely reservoir effect from cholecystectomy. No focal filling defect within the common bile duct. * Multiple incidental pancreatic cystic lesions, the largest one measuring 0.3 cm. Recommendations are based on the largest cyst. Recommend imaging follow-up with contrast-enhanced MRI or pancreas-protocol CT every 2 years for 10 years. Consider stopping follow-up at age 79, depending on co-morbidities and patient preferences. CITATION: Jovanny PIERRE, et al. Management of Incidental Pancreatic Cysts: A White Paper of the ACR Incidental Findings Committee. J Am Edwar Radiol 2017;14:911-923. Approved by Resident Olegario Cain DO on 06/11/2024 11:08 AM IWill MD have personally reviewed the image(s) and agree with and/or edited the report Finalized by Will Villagomez MD on 06/11/2024 3:16 PM Normal [facility] Urine Cultureon 06-03-2024 Bacteria identified Cx Nom (U) No Growth 2 Days PERFORMED BY: [place] [address] PATHOLOGIST SERVICE VEHICLE OPERATOR REVA MICHAELS M.D. Normal [facility] Comment on above: Performed By: #### C UU #### [address] BI MAMMOGRAM SCREENING TOMOS YNTHARJITIS BILATERALon 05-28-2024 BI MAMMOGRAM SCREENING TOMOSYNTHESIS BILATERAL This is a summary report. The complete report is available in the patient's medical record. If you cannot access the medical record, please contact the sending organization for a detailed fax or copy. EXAMINATION: BI MAMMOGRAM SCREENING TOMOSYNTHESIS BILATERAL CLINICAL HISTORY:screening mammogram COMPARISON: April 05, 2023. RESULT: Density: Almost entirely fatty [1] There is no suspicious mass, asymmetry, architectural distortion, or calcification. Stable patchy islands of nodular fibroglandular dense tissue and focal asymmetries. Typically benign calcifications. No significant axillary lymphadenopathy. IMPRESSION: BIRADS 2 - Benign Follow-up: Routine Screening Mamm Board Certified Radiologists. Accredited by the ACR and FDA. MAMMOGRAPHY IS VERY IMPORTANT TO YOUR HEALTH. THE [place] [employer] SOCIET[employer] GUIDELINES RECOMMEND THAT WOMEN 40 YEARS OF AGE AND OLDER SHOULD HAVE A MAMMOGRAM EVERY YEAR. A REMINDER LETTER WILL BE SENT AT THE APPROPRIATE TIME. THIS FACILITY UTILIZES A REMINDER SYSTEM TO ENSURE ALL PATIENTS RECEIVE REMINDER NOTIFICATIONS AT THE APPROPRIATE TIME BASED ON THE RECOMMENDATIONS OF THIS EXAM. THIS INCLUDES REMINDERS FOR ROUTINE SCREENING MAMMOGRAMS, DIAGNOSTIC MAMMOGRAMS IN WHICH THE PATIENT IS ASKED TO RETURN FOR ADDITIONAL VIEWS, OR OTHER BREAST IMAGING INTERVENTIONS WHEN APPROPRIATE. THE PATIENT WILL BE PLACED IN THE APPROPRIATE REMINDER SYSTEM INCLUDING A REMINDER AT THE APPROPRIATE TIME FOR ANY PENDING ADDITIONAL VIEWS. TRANSCRIBED BY: ELECTRONICALLY SIGNED BY: Jerad Castro MD Normal Not Available DEXA BONE DENSITYon 05-28-20 24 DEXA BONE DENSITY Region BMD Young-Terrence lt Age-Matched Total (g/cm2) (%) T-Score (%) Z-Score Femur .713 84 -1.2 110 +0.6 IMPRESSION: Impression: Comparison made with prior examination of October 04, 2021 percentage change -0.8%. The mean BMD and corresponding T-score indicated above indicate Low Bone Mass (Osteopenia) and places the patient at a mild to moderate increased risk for fracture. There may be a future risk of developing osteoporosis. Region BMD Young-Adult Age-Matched Total (g/cm2) (%) T-Score (%) Z-Score L1-L4 1.077 103 +0.3 133 +2.4 Impression: Comparison made with prior examination of October 04, 2021 percentage change is -0.3%The mean BMD and corresponding T-score indicated above indicate Normal Bone Mass and places the patient no significant risk for fracture. This information can serve as a baseline with which to compare future studies. Comment: The T-score is the primary focus of the interpretation of a patient?s bone mineral density measurement. The T-score is the number of standard deviations an individual is above or below the mean value for a young female having normal bone mass. The WHO defines osteoporosis based on the T-score value? +1.0 to ?0.9: Normal bone mass -1.0 to -2.5: Osteopenia and thus may be at future risk of fracture -2.6 to ?5: Osteoporosis and ?at significantly increased risk of fracture? TRANSCRIBED BY: ELECTRONICALLY SIGNED BY: Jerad Castro MD Normal Not Available GLUCOSEon 05-28-2024 Glucose [Mass/Vol] 111 mg/dL High 65-99 [facility] Comment on above: Performed By: #### 2 345-7 #### [facility] ([id number]) [address], [address] [place] [address] GLUCOSEon 05-23-2024 Glucose [Mass/Vol] 129 mg/dL High 65-99 [facility] Comment on above: Performed By: #### 2 345-7 #### [facility] ([id number]) [address], [address] [place] [address] GLUCOSEon 05-07-2024 Glucose [Mass/Vol] 92 mg/dL Normal 65-99 [facility] Comment on above: Performed By: #### 2 345-7 #### [facility] ([id number]) [address], [address] [place] [address] BASIC METABOLIC PANLon 04-30 Anion gap [Moles/Vol] 5 mmol/L Normal 5-15 [facility] Comment on above: Performed By: #### C BCA, BMP #### [facility] ([id number]) [address] [place] [address], [place] [address] Calcium [Mass/Vol] 9.3 mg/dL Normal 8.5-10.5 [facility] Comment on above: Performed By: #### C BCA, BMP #### [facility] ([id number]) [address] [place] [address]85 Chloride [Moles/Vol] 104 mmol/L Normal 98-109 [facility] Comment on above: Performed By: #### C BCA, BMP #### [facility] ([id number]) [address] [place] [address] 56568 CO2 [Moles/Vol] 26 mmol/L Normal 22-32 [facility] Comment on above: Performed By: #### C BCA, BMP #### [facility] ([id number]) [address] [place] [address] 20059 Creatinine [Mass/Vol] 0.66 mg/dL Normal 0.40-1.00 [facility] Comment on above: Result Comment: METH OD TRACEABLE TO IDMS STANDARD Performed By: #### C BCA, BMP #### [facility] ([id number]) [address] [place] [address]201 eGFR (CKD-EPI) NON-RACE DEPENDENT >90 Normal >59 [facility] Comment on above: Result Comment: Reported eGFR is based on the CKD-EPI 2021 equation that does not use a race coefficient. Performed By: #### C BCA, BMP #### [facility] ([id number]) [address] [place] [address]166 Glucose [Mass/Vol] 93 mg/dL Normal 65-99 [facility] Comment on above: Performed By: #### C BCA, BMP #### [facility] ([id number]) [address] [place] [address] 19938 Potassium [Moles/Vol] 3.9 mmol/L Normal 3.5-5.0 [facility] Comment on above: Performed By: #### C BCA, BMP #### [facility] ([id number]) [address] [place] [address] 84263 Sodium [Moles/Vol] 135 mmol/L Normal 134-146 [facility] Comment on above: Performed By: #### C JODY, BMP #### [facility] ([id number]) [address] [place] [address] 00978 Urea nitrogen [Mass/Vol] 19 mg/dL Normal 5-27 [facility] Comment on above: Performed By: #### C JODY, BMP #### [facility] ([id number]) [address] [place] [address]72 CBC AND AUTO DIFFon 04-30-20 24 ABSOLUTE BASOPHIL 0.1 X10E9/L Normal 0.0-0.2 [facility] Comment on above: Performed By: #### C JODY, BMP #### [facility] ([id number]) [address] [place] [address] 97537 ABSOLUTE NEUTROPHIL 8.4 X10E9/L High 1.5-6.6 [facility] Comment on above: Performed By: #### C JODY, BMP #### [facility] ([id number]) [address] [place] [address] 72993 Basophils/100 WBC (Bld) 0.5 % Normal [facility] Comment on above: Performed By: #### C JODY, BMP #### [facility] ([id number]) [address] [place] [address] 84759 Eosinophils (Bld) [#/Vol] 0.1 10*3/uL Normal 0.0-0.4 [facility] Comment on above: Performed By: #### C JODY, BMP #### [facility] ([id number]) [address] [place] [address] 51957 Eosinophils/100 WBC (Bld) 0.6 % Normal [facility] Comment on above: Performed By: #### C JODY, BMP #### [facility] ([id number]) [address] [place] [address] 54048 Erythrocyte distribution width (RBC) [Ratio] 13.9 % Normal 11.5-15.0 [facility] Comment on above: Performed By: #### C JODY, BMP #### [facility] ([id number]) [address] [place] [address] 16211 Hematocrit (Bld) [Volume fraction] 39.8 % Normal 35-47 [facility] Comment on above: Performed By: #### C JODY, BMP #### [facility] ([id number]) [address] [place] [address] 52263 Hemoglobin (Bld) [Mass/Vol] 13.8 g/dL Normal 11.7-15.5 [facility] Comment on above: Performed By: #### C JODY, BMP #### [facility] ([id number]) [address] [place] [address] 67891 Lymphocytes (Bld) [#/Vol] 1.3 10*3/uL Normal 1.0-3.5 [facility] Comment on above: Performed By: #### C JODY, BMP #### [facility] ([id number]) [address] [place] [address] 42543 Lymphocytes/100 WBC (Bld) 12.8 % Normal [facility] Comment on above: Performed By: #### C JODY, BMP #### [facility] ([id number]) [address] [place] [address] 57839 MCH (RBC) [Entitic mass] 31.8 pg Normal 27-34 [facility] Comment on above: Performed By: #### C JODY, BMP #### [facility] ([id number]) [address] [place] [address] 16957 MCHC (RBC) [Mass/Vol] 34.7 g/dL Normal 32-36 [facility] Comment on above: Performed By: #### C BCA, BMP #### [facility] ([id number]) [address] [place] [address] 13078 MCV (RBC) [Entitic vol] 92 fL Normal 80-100 [facility] Comment on above: Performed By: #### C JODY, BMP #### [facility] ([id number]) [address] [place] [address] 50640 Monocytes (Bld) [#/Vol] 0.7 10*3/uL Normal 0-0.9 [facility] Comment on above: Performed By: #### C JODY, BMP #### [facility] ([id number]) [address] [place] [address] 32184 Monocytes/100 WBC (Bld) 6.9 % Normal [facility] Comment on above: Performed By: #### C JODY, BMP #### [facility] ([id number]) [address] [place] [address] 01927 Neutrophils/100 WBC (Bld) 79.2 % Normal [facility] Comment on above: Performed By: #### C JODY, BMP #### [facility] ([id number]) [address] [place] [address] 73723 Platelet mean volume (Bld) [Entitic vol] 8.3 fL Normal 7-12 [facility] Comment on above: Performed By: #### C JODY, BMP #### [facility] ([id number]) [address] [place] [address] 66161 Platelets (Bld) [#/Vol] 235 10*3/uL Normal 150-450 [facility] Comment on above: Performed By: #### C JODY, BMP #### [facility] ([id number]) [address] [place] [address] 74604 RBC COUNT 4.35 X10E12/L Normal 3.80-5.20 [facility] Comment on above: Performed By: #### C JODY, JANET #### [facility] ([id number]) [address] [place] [address] 45374 WBC (Bld) [#/Vol] 10.6 10*3/uL Normal 4.0-11.0 [facility] Comment on above: Performed By: #### C JODY, BMP #### [facility] ([id number]) [address] [place] [address] CT ABDOMEN AND PELVIS W CONT on 04-30-2024 CT ABDOMEN AND PELVIS W CONT CT ABDOMEN AND PELVIS W CONT ABDOMEN AND PELVIS CT WITH CONTRAST HISTORY: Gross hematuria, dysuria COMPARISON: CT abdomen and pelvis 04/17/2024 TECHNIQUE: CT abdomen and pelvis was performed. Axial images were obtained following the uneventful administration of 100 cc Omnipaque 300 nonionic intravenous contrast. Coronal and sagittal reformatted images were obtained and reviewed. Automated exposure control was utilized. FINDINGS: Significant centrilobular emphysematous changes in the visible lung bases. No significant airspace consolidation or pleural fluid collection. Heart size is grossly within normal limits. Tiny hiatal hernia with postoperative changes compatible with gastric sleeve. Mild dilation of the biliary system likely due to reservoir effect status post cholecystectomy. No discrete hepatic mass. Atrophied appearance of the pancreas. Unremarkable spleen and adrenal glands. Symmetric renal enhancement. Simple exophytic right renal cyst requires no additional evaluation. Subcentimeter hypodensity in the left kidney is too small to definitively characterize. No hydronephrosis or perinephric fluid collection. No ureteral distention. No bladder stones. Mild thickening of the urinary bladder wall likely accentuated by incomplete distention. Uterus is absent. No adnexal mass. Bowel demonstrates no obstruction or acute inflammatory change. Minimal diverticular disease of the colon. Normal appendix. Mild stool burden. No free air. No mesenteric lymphadenopathy. Normal caliber aorta and iliac arteries with moderate to severe atherosclerotic calcification. No significant visceral or renal artery abnormality. Right-sided IVC. Portal and mesenteric veins are patent. No pathologic enlargement of retroperitoneal or pelvic lymph nodes. Subcutaneous cystic lesion in the right flank soft tissues is unchanged. Grade 1 anterolisthesis L4-L5 secondary to degenerative disc and facet disease. No acute osseous abnormality. IMPRESSION: * No acute pathologic process. * Additional incidental/chronic findings as described. All CT scans at this facility use dose modulation, iterative reconstruction, and/or weight based dosing when appropriate to reduce radiation dose to as low as reasonably achievable. Finalized by Romeo Demarco MD on 04/30/2024 1:05 PM Normal [facility] URINE CULTUREon 04-30-2024 Bacteria identified Cx Nom (U) CULTURE RESULTS <10,000 ORGANISMS/ML NORMAL URO GENITAL BELEM Normal [facility] Comment on above: Performed By: #### 6 30-4 #### [facility] ([id number]) [address] [place] [address], [address] [place] [address] URN MACROSCOPIC NURon 2023 BILIRUBIN LOREN Negative Normal NEG [facility] Comment on above: Performed By: #### N UM #### [facility] ([id number]) [address] [place] [address] 34880 BLOOD/HGB LOREN Large Abnormal NEG [facility] Comment on above: Performed By: #### N UM #### [facility] ([id number]) [address] [place] [address] 08814 GLUCOSE LOREN Negative Normal NEG [facility] Comment on above: Performed By: #### N UM #### [facility] ([id number]) [address] [place] [address] 44838 KETONES LOREN Negative Normal NEG [facility] Comment on above: Performed By: #### N UM #### [facility] ([id number]) [address] [place] [address] 27699 LEUKOCYTE ESTERASE LOREN Small Abnormal NEG [facility] Comment on above: Performed By: #### N UM #### [facility] ([id number]) [address] [place] [address] 46467 NITRITE LOREN Negative Normal NEG [facility] Comment on above: Performed By: #### N UM #### [facility] ([id number]) [address] [place] [address] 42186 PH LOREN 6.0 Normal 5.0-8.5 [facility] Comment on above: Performed By: #### N UM #### [facility] ([id number]) [address] [place] [address] 31986 PROTEIN LOREN Negative Normal NEG [facility] Comment on above: Performed By: #### N UM #### [facility] ([id number]) [address] [place] [address] 96181 SPECIFIC GRAVITY LOREN 1.015 Normal 1.003-1.035 [facility] Comment on above: Performed By: #### N UM #### [facility] ([id number]) [address] [place] [address] 85926 UROBILINOGEN LOREN 1.0 eu/dL Normal <1.1 [facility] Comment on above: Performed By: #### N UM #### [facility] ([id number]) [address] [place] [address] 39486 2904-26-2024 29 Addended by: DONNA PANDA on: 04/26/2024 09:52 AM Modules accepted: Orders [facility] 04-26-2024 36 Please send with new directions [facility] 36 Pt states you increa sed her bupropion to 2 tablets daily. Please send new prescription with correct directions thank you [facility] 04-24-2024 36 Pt states you increa sed her bupropion to 2 tablets daily. Please send new prescription with correct directions thank you [facility] GLUCOSEon 04-24-2024 Glucose [Mass/Vol] 89 mg/dL Normal 65-99 [facility] Comment on above: Performed By: #### 2 345-7 #### [facility] ([id number]) [address], [address] [place] [address] Ref[place] 04-24-2024 Refill [id number] Raegan Rabago 1955 F Date Provider Department Center 04/24/2024 404RONALDO SARAH C [facility] [place] [facility] No family history on file Reason for Visit and Comments: Med Refill [[id number]] Normal [facility] [place] 04-23-2024 Refill [id number] Raegan Rabago B 1955 F Date Provider Department Center 04/23/2024 404-RARONALDO FLOREZ [facility] PS[facility] [place] No family history on file Reason for Visit and Comments: Med Refill [[id number]] Normal [facility] CT ABDOMEN AND PELVIS WO CON Ton 04-18-2024 CT ABDOMEN AND PELVIS WO CONT CT ABDOMEN AND PELVIS WO CONT CLINICAL INFORMATION: History of cancer of vulva. Metastatic screening evaluation. TECHNIQUE: CT Abdomen and Pelvis without intravenous contrast. All CT scans at this facility use dose modulation, iterative reconstruction, and/or weight based dosing when appropriate to reduce radiation dose to as low as reasonably achievable. COMPARISON: No relevant prior studies available. FINDINGS: LOWER CHEST: Mild emphysematous changes of the visualized left lung base. No focal consolidation at the lung bases or pleural effusion. No cardiomegaly or significant pericardial effusion. Right-sided diaphragmatic hernia containing right hepatic lobe. Moderately sized fat-containing Morgagni hernia. LIVER AND BILIARY: Much of the right hepatic lobe is herniated into a diaphragmatic defect. No focal hepatic lesions within limitations of this technique. The gallbladder surgically absent. No intrahepatic biliary dilatation. Common bile duct is borderline enlarged, measuring up to 15 mm in diameter. This is likely due to reservoir effect status post cholecystectomy. PANCREAS: Fatty replacement of the pancreas. Scattered dystrophic pancreatic calcifications. No biliary ductal dilatation or inflammatory change. SPLEEN: Within normal limits. ADRENALS: Within normal limits. KIDNEYS, URETERS, AND BLADDER: 0.9 mm low attenuating lesion in the left lower renal pole likely presenting a benign renal cyst requiring no additional follow-up. Exophytic 1.2 cm fluid attenuating lesion in the right lower renal pole likely benign renal cyst requiring no additional follow-up. No solid mass lesions within limitations for technique. No collecting system dilatation or calculus. GI TRACT AND PERITONEUM: Small hiatal hernia. 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 No dilated bowel loops or inflammatory thickening. No free air or significant free fluid. The appendix is unremarkable. Colonic diverticulosis. There is a 3 cm well-circumscribed fluid collection approximating/questionably contiguous with the left vaginal cuff. This likely represents a remote postoperative seroma or lymphocele. VASCULATURE: The abdominal aorta is nonaneurysmal. Moderate atherosclerotic disease of the aortoiliac vasculature. IVC is right-sided. LYMPH NODES: Within normal limits. REPRODUCTIVE ORGANS: The uterus and ovaries are surgically absent. MUSCULOSKELETAL: No suspicious osseous lesions. 2 mm retrolisthesis of T12 on L1 and L1 on L2. 6 mm anterolisthesis of L4 on L5. ABDOMINAL WALL: Unremarkable. IMPRESSION: 1. No evidence of occult malignancy/metastatic disease within the abdomen or pelvis, by CT. 2. Borderline enlargement of the common bile duct, measuring up to 15 mm in diameter. For ductal dilation >10 mm if gallbladder is absent, and normal laboratory results, no further evaluation is recommended. If clinical suspicion for biliary duct obstruction or abnormal laboratory, consider endoscopic retrograde cholangiopancreatography, endoscopic ultrasound, MR cholangiopancreatography or CT cholangiography as appropriate. 3. Right-sided diaphragmatic hernia containing the right hepatic lobe. 4. Moderately sized fat-containing Morgagni hernia. 5. Colonic diverticulosis CITATION: Managing incidental findings on abdominal and pelvic CT and MRI, Part 4: white paper of the ACR Incidental Findings Committee II on gallbladder and biliary findings. J Am Edwar Radiol. 2013 Dec;10(12):953-6. Approved by Resident Alma Jo MD on 04/17/2024 11:10 AM I, Nabeel Do MD have personally reviewed the image(s) and agree with and/or edited the report Finalized by Nabeel Do MD on 04/18/2024 11:23 AM Normal [facility] GLUCOSEon 04-17-2024 Glucose [Mass/Vol] 90 mg/dL Normal 65-99 [facility] Comment on above: Performed By: #### 2 [id number] #### [facility] ([id number]) [address] [place] [address] Urinalysis - AUTOMATEDon Appearance (U) CLOUDY Opeepl Other Bilirubin Ql (U) Negative Nippo Other Color (U) YELLOW Marginize Other Glucose Ql (U) Negative Opeepl Other Hemoglobin Ql (U) CrowdProcess Other Ketones Ql (U) Negative Opee[employer] Other Leukocyte esterase Test strip Ql (U) Globial Other Nitrite Ql (U) Negative [employer]pee[employer] Other pH (U) 5.0 [pH] Marginize Other Protein Ql (U) Negative Opeepl Other Specific gravity (U) [Rel density] 1.025 Marginize Other Urobilinogen (U) [Mass/Vol] 0.2 mg/dL Marginize Other Urinalysis - AUTOMATED Marginize Other Urine Cultureon 06-30-2023 Bacteria identified Cx Nom (U) Reason for Exam Dysuria Urine ORGANISM: Escherichia coli (O:ESCCOL) [place] Count 75,000 Aerobic WARD Charge ([id number]) SUSCEPTIBILITY ORGANISM: O:ESCCOL ANTIBIOTIC INTERPRETATION WARD Amikacin S <16 Amoxacillin/K Clavulanate S <8 Ampicillin S <8 Ampicillin/Sulbactam S <4 Aztreonam S <4 Cefazolin S <2 Cefepime S <2 Ceftazidime S <1 Ceftazidime/Avibactam S <4 Ceftolozane/Tazobactam S <2 Ceftriaxone S <1 Cefuroxime S <4 Ciprofloxacin S <0.25 Ertapenem S <0.5 Gentamicin S <2 Levofloxacin S <0.5 Meropenem S <1 Meropenem/Vaborbactam S <2 Nitrofurantoin S <32 Piperacillin/Tazobactam S <8 Tetracycline S <4 Tigecycline S <2 Tobramycin S <2 Trimethoprim/Sulfamethoxazo le S <0.5 S = SUSCEPTIBLE I = INTERMEDIATE R = RESISTANT BLANK = DATA NOT AVAILABLE, OR DRUG NOT ADVISABLE OR TESTED R* = RESISTANCE DUE TO EXTENDED SPECTRUM BETA-LACTAMASES ESBL = EXTENDED SPECTRUM BETA-LACTAMASE TFG = THYMIDINE-DEPENDENT STRAIN HARISH = BETA-LACTAMASE POSITIVE IB = INDUCIBLE BETA-LACTAMASE. APPEARS IN PLACE OF 'S' WITH SPECIES KNOWN TO POSSESS INDUCIBLE BETA-LACTAMASES. POTENTIALLY THEY MAY BECOME RESISTANT TO ALL B-LACTAM DRUGS. PERFORMED BY: [place] [address] PATHOLOGIST SERVICE VEHICLE OPERATOR REVA MICHAELS M.D. Normal [facility] Comment on above: Performed By: #### C UU #### [address] Urine Culture 75,000 Marginize Other Urine Culture <16 Susceptible Opeepl Other Urine Culture <8/4 Susceptible Opee[employer] Other Urine Culture <8 Susceptible Opee[employer] Other Urine Culture <4 Susceptible Opee[employer] Other Urine Culture <2 Susceptible Opeepl Other Urine Culture <1 Susceptible Opeepl Other Urine Culture <0.25 Susceptible Opeepl Other Urine Culture <0.5 Susceptible Opeepl Other Urine Culture <32 Susceptible Opeepl Other Urine Culture <0.5/9.[address] LUNG CANCER SCREENINGon 0 03-16-2023 CT LUNG CANCER SCREENING EXAMINATION: CT LUNG CANCER SCREENING HISTORY: Nicotine dependence COMPARISON: CT chest 12/21/2021 TECHNIQUE: Axial, Coronal, and Sagittal images were created without the administration of IV contrast material. Dose reduction techniques were achieved by using automated exposure control and/or adjustment of mA and/or kV according to patient size and/or use of iterative reconstruction technique. FINDINGS: LUNGS: Elevated right hemidiaphragm. Moderate marked emphysematous changes. A few scattered areas of small pleural-based scarring. PLEURA: No mass, effusion, or pneumothorax. VASCULATURE: No abnormality. HALI: No mass or pathologic adenopathy. MEDIASTINUM: No mass or pathologic adenopathy. CARDIAC: No enlargement, pericardial thickening, or significant calcification. AORTA: No aneurysm or dissection. CHEST WALL: No mass or axillary adenopathy BONES: No bone lesion or fracture. LIMITED ABDOMEN: No suspicious findings. Limited images of the upper abdomen. OTHER: Negative. IMPRESSION: 1. Lung-RADS 2- Benign Appearance or Behavior. Nodules with a very low likelihood of becoming a clinically active cancer due to size or lack of growth. Follow-up CT Chest in 1 year. Electronically authenticated by: SANGEETHA KEVIN Date: 2023-03-16 14:53 Normal [facility] LIPID PROFILEon 06-02-2022 CHOL-HDL RATIO NORM SEE BELOW Normal [facility] Comment on above: Result Comment: 3.3 - 4.4 LOW RISK 4.4 - 7.1 AVERAGE RISK 7.1 - 11.0 MODERATE RISK >11.0 HIGH RISK Performed By: #### L IPID, LIVER #### [facility] [address] [place], [place] [address] Dr. Jailene Kemp Cholesterol [Mass/Vol] 122 mg/dL Normal <=200 [facility] Comment on above: Performed By: #### L IPID, LIVER #### [facility] [address] [place], [place] [address] Dr. Jailene Kemp Cholesterol in HDL [Mass/Vol] 70 mg/dL Critically high 40-60 [facility] Comment on above: Performed By: #### L IPID, LIVER #### [facility] [address] [place] [address] [address] Jailene Kemp Cholesterol in LDL [Mass/Vol] 39.8 mg/dL Normal [facility] Comment on above: Performed By: #### L IPID, LIVER #### [facility] [address] [place] [address] [address] Jailene Kemp Cholesterol.total /Cholesterol in HDL [Mass ratio] 1.7 {ratio} Normal [facility] Comment on above: Performed By: #### L IPID, LIVER #### [facility] [address] [place] [address] [address] Jailene Kemp HDL NORMAL > or = 60 mg/dl - LO W CARDIOVASCULAR RISK <40 mg/dl - HIGH CARDIOVASCULAR RISK Normal [facility] Comment on above: Performed By: #### L IPID, LIVER #### [facility] [address] [place] [address] Dr. Jailene Kemp LDL CALC NORMAL SEE BELOW Normal [facility] Comment on above: Result Comment: <100 mg/dl OPTIMAL 100 - 129 mg/dl NEAR OR ABOVE OPTIMAL 130 - 159 mg/dl BORDERLINE HIGH 160 - 189 mg/dl HIGH >190 mg/dl VERY HIGH Performed By: #### L IPID, LIVER #### [facility] [address] [place] [address] Dr. Jailene Kemp Triglyceride [Mass/Vol] 61 mg/dL Normal <=150 [facility] Comment on above: Performed By: #### L IPID, LIVER #### [facility] [address] [place] [address] Dr. Jailene Kemp VLDL CALC 12.2 mg/dL Normal [facility] Comment on above: Performed By: #### L IPID, LIVER #### [facility] [address] [place] [address] [address] Jailene Kemp LIVER PROFILEon 06-02-2022 Albumin [Mass/Vol] 3.7 g/dL Normal 3.4-5.0 [facility] Comment on above: Performed By: #### L IPID, LIVER #### [facility] [address] [place] [address] [address] Jailene Kemp Albumin/Globulin [Mass ratio] 0.9 {ratio} Normal [facility] Comment on above: Performed By: #### L IPID, LIVER #### [facility] [address] [place] [address] [address] Jailene Kemp ALP [Catalytic activity/Vol] 79 U/L Normal 46-116 [facility] Comment on above: Performed By: #### L IPID, LIVER #### [facility] [address] [place] [address] [address] Jailene Kemp ALT [Catalytic activity/Vol] 12 U/L Critically low 14-59 [facility] Comment on above: Performed By: #### L IPID, LIVER #### [facility] [address] [place] [address] [address] Jailene Kemp AST [Catalytic activity/Vol] 17 U/L Normal 15-37 [facility] Comment on above: Performed By: #### L IPID, LIVER #### [facility] [address] [place] [address] [address] Jailene Kemp BILI, CONJUGATED 0.1 mg/dL Normal 0.0-0.[address] [facility] Comment on above: Performed By: #### L IPID, LIVER #### [facility] [address] [place] [address] [address] Jailene Kemp Bilirubin [Mass/Vol] 0.4 mg/dL Normal 0.2-1.0 [facility] Comment on above: Performed By: #### L IPID, LIVER #### [facility] [address] [place] [address] [address] Jailene Kemp Globulin (S) [Mass/Vol] 3.9 g/dL Normal [facility] Comment on above: Performed By: #### L IPID, LIVER #### [facility] [address] [place] [address] [address] Jailene Kemp Protein [Mass/Vol] 7.6 g/dL Normal 6.4-8.2 [facility] Comment on above: Performed By: #### L IPID, LIVER #### [facility] [address] [place], [place] [address] Dr. Jailene Kemp Cardiovascular Lab Reporton 04-27-2022 Cardiovascular Lab Report [facility]: [id number] Physician: Josemanuel Cat, Department of M.D. Medicine Service Date: 04/27/2022 Division of Birthdate: 1955 Cardiology Room #: Adult Cardiovascular Services [facility] [address] [facility]. [place] [address] Cardiovascular Laboratory Report FINAL IMPRESSIONS: 1. 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 2. Mild disease of the left circumflex and right coronary arteries. 3. Normal global left ventricular systolic function by noninvasive imaging. 4. Normal right-sided heart pressures and wedge pressure. 5. Low normal cardiac output/cardiac index. 6. Resting hypoxemia. RECOMMENDATIONS: 1. Consider pulmonary etiologies for the patient's shortness of breath. 2. Aggressive cardiovascular risk factor modification. 3. Optimal medical therapy for coronary disease should include aspirin, moderate to high intensity statin therapy, beta-alexandria +/- an angiotensin-converting enzyme inhibitor. 4. Will increase her Crestor to 20 mg a day with a repeat fasting lipid profile and liver function tests in 6-8 weeks. 5. Follow up with Renee Story CNP in the [place] office in the next 1 to 2 months. 6. 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 PROCEDURES: Ultrasound-guided access to the right common femoral vein, ultrasound-guided access to the right common femoral artery, limited femoral arterial angiography, right heart catheterization, bilateral selective coronary angiography, placement of a 6-Wallisian MynxGrip closure device. METHODS: After risks, benefits, and alternatives were explained, written informed consent was obtained. The patient was prepped and draped in the usual sterile fashion over both groins. Using 1% lidocaine solution, local infiltration anesthesia was achieved. Using a modified Seldinger technique, micropuncture kit, access to the right common femoral vein was obtained. A 6-Wallisian 11 cm sheath was inserted without difficulty. This was repeated over the artery. Angiography via the micropuncture kit was performed. This was upsized to a 6-Wallisian 11 cm sheath. A Temple catheter was used for right heart catheterization measuring pressures in the right atrium, right ventricle, pulmonary artery, and pulmonary capillary wedge positions. Oxygen saturations were obtained and a cardiac output/cardiac index was calculated using the modified Rianna principle. The Temple catheter was removed. Bilateral selective coronary angiography was performed using JL4 and JR4 catheters. After reviewing the images, it was elected to conclude the procedure. All catheters were removed. A 6-Wallisian MynxGrip closure device was deployed per protocol achieving optimal hemostasis over the arterial access site. The venous sheath was removed with application of manual pressure to achieve optimal hemostasis. Overall, the patient tolerated the procedure well. There were no overt complications. She was to be transferred to the holding area in stable condition. FINDINGS: Hemodynamics. AO 121/71. RA mean of 5. RV 32/2, 6. PA 32/13 (22). PCWP mean of 6. Cardiac output 4.45/cardiac index 2.15. AO sat 89%/PA sat 57%. LEFT VENTRICULOGRAPHY: This was not performed. Ejection fraction is normal by noninvasive imaging. CORONARY ARTERIES: Left main coronary artery. This arises from the left coronary cusp. It bifurcates into the left anterior descending and left circumflex coronary arteries. It is free of significant stenosis. Left anterior descending coronary artery. This shows a proximal 20% stenosis adjacent to a small caliber diagonal, a midvessel 20-30% stenosis on an angulated portion of the vessel and a long segment 40% stenosis in the midportion. This is after the takeoff of a large branching second diagonal. The stenotic segment appears to have superimposed myocardial bridging with mild systolic compression seen. It is along left anterior descending that wraps around the apex. Left circumflex coronary artery. This is a small caliber vessel with no significant stenosis. Right coronary artery. This is a dominant vessel giving rise to the posterior descending and posterolateral branches. It is of relatively small caliber with no discrete high-grade stenosis. The posterolateral branches extend out into the basal lateral and inferolateral davidson. There were luminal irregularities in the posterior descending and posterolateral branches. Limited femoral angiography. This shows mild calcific plaque and appropriate sheath position and anatomy suitable for a closure device. INDICATIONS: Exertional shortness of breath, abnormal stress test. Electronically Signed by: Josemanuel Cat M.D. 04/29/2022 06:05 P (more content not included)... Normal [facility] CBC AUTO DIFFon 04-23-2022 BASO # 0.0 103/ul Normal 0.0-0.1 [facility] Comment on above: Performed By: #### C BC #### [facility] [address] [place] [address] Dr. Jailene Kemp Basophils/100 WBC (Bld) 0.4 % Normal 0.2-2.0 [facility] Comment on above: Performed By: #### C BC #### [facility] [address] [place] [address] Dr. Jailene Kemp EO # 0.1 103/ul Normal 0.0-0.7 [facility] Comment on above: Performed By: #### C BC #### [facility] [address] [place] [address] Dr. Jailene Kemp Eosinophils/100 WBC (Bld) 1.8 % Normal 0.9-7.0 [facility] Comment on above: Performed By: #### C BC #### [facility] [address] [place] [address] Dr. Jailene Kemp Erythrocyte distribution width (RBC) [Ratio] 13.6 % Normal 11.0-15.0 [facility] Comment on above: Performed By: #### C BC #### [facility] [address] [place] [address] Dr. Jailene Kemp Hematocrit (Bld) [Volume fraction] 43.5 % Normal 36.0-48.0 [facility] Comment on above: Performed By: #### C BC #### [facility] [address] [place] [address] Dr. Jailene Kemp Hemoglobin (Bld) [Mass/Vol] 14.2 g/dL Normal 12.0-16.0 [facility] Comment on above: Performed By: #### C BC #### [facility] [address] [place] [address] Dr. Jailene Kemp IG # 0.02 10e3/ul Normal 0.00-0.03 [facility] Comment on above: Performed By: #### C BC #### [facility] [address] [place] [address] Dr. Jailene Kmep IG % 0.3 % Normal 0.0-0.5 [facility] Comment on above: Performed By: #### C BC #### [facility] [address] [place] [address] Dr. Jailene Kemp LYMPH # 1.3 103/ul Normal 1.2-3.8 [facility] Comment on above: Performed By: #### C BC #### [facility] [address] [place] [address] Dr. Jailene Kemp Lymphocytes/100 WBC (Bld) 17.2 % Critically low 20.5-60.0 [facility] Comment on above: Performed By: #### C BC #### [facility] [address] [place] [address] Dr. Jailene Kemp MANUAL DIFF REQ NO Normal [facility] Comment on above: Performed By: #### C BC #### [facility] [address] [place] [address] Dr. Jailene Kemp MCH (RBC) [Entitic mass] 29.1 pg Normal 26.7-34.0 [facility] Comment on above: Performed By: #### C BC #### [facility] [address] [place] [address] Dr. Jailene Kemp MCHC (RBC) [Mass/Vol] 32.6 g/dL Normal 29.9-35.2 [facility] Comment on above: Performed By: #### C BC #### [facility] [address] [place] [address] Dr. Jailene Kemp MCV (RBC) [Entitic vol] 89.1 fL Normal 81.0-99.0 [facility] Comment on above: Performed By: #### C BC #### [facility] [address] [place] [address] Dr. Jailene Kemp MONO # 0.5 103/ul Normal 0.3-0.8 [facility] Comment on above: Performed By: #### C BC #### [facility] [address] [place] [address] Dr. Jailene Kemp Monocytes/100 WBC (Bld) 6.8 % Normal 1.7-12.0 [facility] Comment on above: Performed By: #### C BC #### [facility] [address] [place] [address] Dr. Jailene Kemp NEUT # 5.3 103/ul Normal 1.4-6.5 [facility] Comment on above: Performed By: #### C BC #### [facility] [address] [place] [address] Dr. Jailene Kemp Neutrophils/100 WBC (Bld) 73.5 % Normal 43.0-75.0 [facility] Comment on above: Performed By: #### C BC #### [facility] [address] [place] [address] Dr. Jailene Kemp Platelet mean volume (Bld) [Entitic vol] 10.7 fL Normal 9.5-13.5 [facility] Comment on above: Performed By: #### C BC #### [facility] [address] [place] [address] Dr. Jailene Kemp PLT 274 103/ul Normal 150-450 [facility] Comment on above: Performed By: #### C BC #### [facility] [address] [place] [address] Dr. Jailene Kemp RBC 4.88 106/ul Normal 4.20-5.40 [facility] Comment on above: Performed By: #### C BC #### [facility] [address] [place] [address] Dr. Jailene Kemp WBC 7.3 103/ul Normal 4.0-11.0 [facility] Comment on above: Performed By: #### C BC #### [facility] [address] [place] [address] Dr. Jailene Kemp Covid-19 PCR ([facility])on 03-28 SARS-CoV-2 (COVID-19) RNA YVAN+probe Ql (Unsp spec) Not detected Normal NOT DETECTED [facility] Comment on above: Result Comment: This test is not yet approved or cleared by the [place] FDA. When there are no FDA-approved or cleared tests available, and other criteria are met, FDA can make tests available under an emergency access mechanism called an Emergency Use Authorization (EUA). The EUA for this test is supported by the Gregory of Health and Human Service's (HHS's) declaration that circumstances exist to justify the emergency use of in vitro diagnostics for the detection and/or diagnosis of the virus that causes COVID-19. This EUA will remain in effect (meaning this test can be used) for the duration of the COVID-19 declaration justifying emergency of IVDs, unless it is terminated or revoked by FDA (after which the test may no longer be used). When diagnostic testing is negative, the possibility of a false negative should be considered in the context of a patient's recent exposures and the presence of clinical signs and symptoms consistent with SARS-CoV-2. Performed By: #### C VDTB #### [facility] [address] [place] [address] Dr. Jailene Kemp LIPID PROFILEon 04-23-2022 CHOL-HDL RATIO NORM SEE BELOW Normal [facility] Comment on above: Result Comment: 3.3 - 4.4 LOW RISK 4.4 - 7.1 AVERAGE RISK 7.1 - 11.0 MODERATE RISK >11.0 HIGH RISK Performed By: #### L IPID, BMP #### [facility] [address] [place] [address] Dr. Jailene Kemp Cholesterol [Mass/Vol] 123 mg/dL Normal <=200 [facility] Comment on above: Performed By: #### L IPID, BMP #### [facility] [address] [place] [address] Dr. Jailene Kemp Cholesterol in HDL [Mass/Vol] 72 mg/dL Critically high 40-60 [facility] Comment on above: Performed By: #### L IPID, BMP #### [facility] [address] [place] [address] Dr. Jailene Kemp Cholesterol in LDL [Mass/Vol] 38.8 mg/dL Normal [facility] Comment on above: Performed By: #### L IPID, BMP #### [facility] [address] [place] [address] [address] Jailene Kemp Cholesterol.total /Cholesterol in HDL [Mass ratio] 1.7 {ratio} Normal [facility] Comment on above: Performed By: #### L IPID, BMP #### [facility] [address] [place] [address] [address] Jailene Kemp HDL NORMAL > or = 60 mg/dl - LO W CARDIOVASCULAR RISK <40 mg/dl - HIGH CARDIOVASCULAR RISK Normal [facility] Comment on above: Performed By: #### L IPID, BMP #### [facility] [address] [place] [address] [address] Jailene Kemp LDL CALC NORMAL SEE BELOW Normal [facility] Comment on above: Result Comment: <100 mg/dl OPTIMAL 100 - 129 mg/dl NEAR OR ABOVE OPTIMAL 130 - 159 mg/dl BORDERLINE HIGH 160 - 189 mg/dl HIGH >190 mg/dl VERY HIGH Performed By: #### L IPID, BMP #### [facility] [address] [place] [address] [address] Jailene Kemp Triglyceride [Mass/Vol] 61 mg/dL Normal <=150 [facility] Comment on above: Performed By: #### L IPID, BMP #### [facility] [address] [place] [address] [address] Jailene Kemp VLDL CALC 12.2 mg/dL Normal [facility] Comment on above: Performed By: #### L IPID, BMP #### [facility] [address] [place] [address] [address] Jailene Kemp PROF CHEM 8 (BAS METB)on Anion gap [Moles/Vol] 13.8 mmol/L Normal [facility] Comment on above: Performed By: #### L IPID, BMP #### [facility] [address] [place] [address] Dr. Jailene Kemp Calcium [Mass/Vol] 9.5 mg/dL Normal 8.5-10.1 [facility] Comment on above: Performed By: #### L IPID, BMP #### [facility] [address] [address] [address] Jailene Kemp Chloride [Moles/Vol] 102 mmol/L Normal 98-107 [facility] Comment on above: Performed By: #### L IPID, BMP #### [facility] [address] [address] [address] Jailene Kemp CO2 [Moles/Vol] 24.2 mmol/L Normal 21.0-32.[address] [facility] Comment on above: Performed By: #### L IPID, BMP #### [facility] [address] [address] [address] Jailene Kemp Creatinine [Mass/Vol] 0.71 mg/dL Normal 0.55-1.02 [facility] Comment on above: Performed By: #### L IPID, BMP #### [facility] [address] [address] [address] Jailene Kemp EGFR-AF MALTESE >60 Normal >=60 [facility] Comment on above: Performed By: #### L IPID, BMP #### [facility] [address] [address] [address] Jailene Kemp EGFR-NON AF MALTESE >60 Normal >=60 [facility] Comment on above: Performed By: #### L IPID, BMP #### [facility] [address] [address] [address] Jailene Kemp Glucose [Mass/Vol] 104 mg/dL Normal 74-106 [facility] Comment on above: Performed By: #### L IPID, BMP #### [facility] [address] [address] [address] Jailene Kemp Potassium [Moles/Vol] 4.0 mmol/L Normal 3.5-5.1 [facility] Comment on above: Performed By: #### L IPID, BMP #### [facility] [address] [address] [address] Jailene Kemp Sodium [Moles/Vol] 136 mmol/L Normal 136-145 [facility] Comment on above: Performed By: #### L IPID, BMP #### [facility] [address] [place], [place] [address] Dr. Jailene Kemp Urea nitrogen [Mass/Vol] 14.0 mg/dL Normal 7.0-18.0 [facility] Comment on above: Performed By: #### L IPID, BMP #### [facility] [address] [place], [place] [address] Dr. Jailene Kemp Urea nitrogen/Creatini ne [Mass ratio] 19.7 mg/mg Normal [facility] Comment on above: Performed By: #### L IPID, BMP #### [facility] [address] [place], [place] [address] Dr. Jailene Kemp NM STRESS/REST MULTIon 03-30 NM STRESS/REST MULTI Patient: RAEGAN RABAGO Exam Date: 03/30/2022 : 1955 Gender:F Ordering : DR. DENNIS CONKLIN . Admission #: [id number] Family : Order #: [id number] CLICK HERE TO VIEW EXAM RADIOLOGY REPORT PROCEDURE: RADIONUCLIDE IMAGING STRESS/REST MULTI COMPARISON: None. INDICATIONS: Dyspnea TECHNIQUE: Exam Description: Stress/Rest one day protocol gated SPECT Rest Imagin.4 mCi Tc-99m Cardiolite IV on 03/30/2022 Stress Imaging 29.9 mCi Tc-99m Cardiolite IV on 03/30/2022 Exercise Protocol: 0.4 mg Lexiscan given IV Heart Rate (bpm): Rest: 104 Max: 119 PMHR: 78 Blood Pressure: Rest: 136/82 Max: 136/82 Symptoms: Rest and peak stress ECG findings were abnormal and the exercise portion of the study was abnormal per attending physician Dr. Conklin due to EKG changes. For more details please see separate cardiac stress test report. FINDINGS: QUALITY OF STUDY: Good. PERFUSION DEFECT: LOCATION: Basal inferior. Mid-inferior. SIZE: Small (1-2 segments). SEVERITY: Mild. TYPE: Partially reversible. WALL MOTION: Normal. LV SIZE: Normal. 46 mL. TID / TCD: None; 1.1 LVEF: Normal. Calculated EF 63%. SUMMARY: Myocardial perfusion imaging study has ABNORMAL findings. CONCLUSION: 1. Area of perfusion abnormality in the inferior wall, RCA distribution with suspected partial reversibility on stress images 2. Abnormal exercise test secondary to EKG changes Dictated by: Alma Wilkerson MD on 03/31/2022 at 10:14 Approved by: Alma Wilkerson MD on 03/31/2022 at 10:24 Normal [facility] ECHOCARDIO M/2D COMPLETEon 0 03-29-2022 ECHOCARDIO M/2D COMPLETE Patient: RAEGAN RABAGO Exam Date: 03/29/2022 : 1955 Gender:F Ordering : DR. DENNIS CONKLIN . Admission #: [id number] Family : DR ROBEL SHANNON D.O. Order #: [id number] CLICK HERE TO VIEW EXAM ECHOCARDIOGRAM REPORT PROCEDURE: CARDIO PULMONARY ECHOCARDIO M/2D COMP INDICATIONS: Shortness of breath, COPD COMPARISON: None. DESCRIPTION: COMPLETE ECHOCARDIOGRAM Real-time transthoracic echocardiography with 2D, M-mode, spectral and color flow Doppler performed. QUALITY: Technically difficult due to patient's condition. LEFT VENTRICLE: Normal chamber size. Normal left ventricular wall thickness. Left ventricular systolic function is difficult to assess due to poor sound transmission but appears preserved. LV EF: Normal left ventricular ejection fraction, (55%). DIASTOLIC: Grade I diastolic dysfunction. ATRIAL SEPTUM: LEFT ATRIUM: Normal chamber size. RIGHT ATRIUM: Normal chamber size. RIGHT VENTRICLE: Normal chamber size. Normal right ventricular systolic function. TRICUSPID VALVE: Normal mobility and thickness. No stenosis with trivial regurgitation. Doppler studies reveal mildly (35-45) elevated right sided pressures. RVSP is 41 mmHg MITRAL VALVE: Normal mobility and thickness. No evidence of mitral valve stenosis. There is no mitral annular calcification. No mitral regurgitation. AORTIC VALVE: Normal trileaflet appearance. No visible sclerosis. Normal leaflet mobility. No evidence of aortic valve stenosis. No aortic regurgitation. AORTIC ROOT: Normal diameter and appearance. Ascending aorta is normal in size. PULMONIC VALVE: Not well visualized. No stenosis. No regurgitation. PERICARDIUM: No evidence of pericardial effusion. IVC: IVC is normal in size, with no collapse. PLEURA: CONCLUSION: 1. Technically difficult study with poor sound transmission. Assessment is limited by tachycardia. 2. Left ventricular systolic function appears to be preserved. LVEF is around 55%. 3. Normal right ventricular systolic function. 4. No significant valvular dysfunction. 5. Mildly elevated right-sided pressures. 6. No pericardial effusion. Adult Echocardiography Procedure Report Left Ventricle LVEDD (3.7 - 5.6 cm): 4.11 cm LVESD (2.2 - 4.0 cm): 3.18 cm LVIVS thickness (0.6 - 1.2 cm): 8.42 mm LVPW thickness (0.5 - 1.0 cm): 9.09 mm e': 7.35 cm/s E - e': 6.20 LVOT Area (cm2): 3.80 cm2 LVOT Diameter 2.20 cm Left Ventricular Ejection Fraction: 55 % Left Atrium Left Atrium Systolic Dimension: 3.00 cm Mitral Valve MV E to A Ratio: 0.70 Mitral Valve A-Wave Peak Velocity: 62.70 cm/s Mitral Valve E-Wave Peak Velocity: 45.40 cm/s Deceleration Time: 177 ms Right Ventricle Aorta AO Root Diam: 3.40 cm Aortic Valve AoV Area (Peak Gui): 2.18 cm2 Peak Velocity(Antegrade Flow): 105.00 cm/s Peak Gradient(Antegrade Flow): 4 mm[Hg] Tricuspid Valve Peak Velocity (Regurgitant Flow): 271.00 cm/s, 271.00 cm/s Pulmonic Valve Peak Velocity: 82.90 cm/s Peak Gradient: 3 mm[Hg] Right Atrium Dictated by: Kole Elizabeth M.D. on 03/29/2022 at 13:18 Approved by: Kole Elizabeth M.D. on 03/29/2022 at 13:25 Normal [facility] 04-22-2021 [facility] Office Visit (ORHSMN ) RAEGAN RABAGO ([id number]) 1955 F IOS Date Time Provider Department 04/22/21 1:45 PM [facility] During your visit today, we recorded the following information about you: Myra Martinez MD 04/22/2021 2:42 PM Signed [facility] NOTE Department of Orthopaedics Myra Martinez M.D. NAME: Raegan [facility] NO.: [id number] DATE: April 22, 2021 DATE OF SURGERY: August 04, 2020, left reverse total shoulder arthroplasty with biceps tenodesis. Raegan returns for routine followup, now over 6 months out from surgery. She is doing well with Her range of motion and function, but is still having weakness. She does feel this is improving with physical therapy. PHYSICAL EXAMINATION: Physical examination today of the left shoulder shows a well-healed deltopectoral incision. Range of motion testing shows passive external rotation at the side to 60 degrees. Passive forward elevation is to 160 degrees. Active forward elevation is to 160 degrees supine and to 90 degrees upright. Active internal rotation is to the lower thoracic levels. There is 4/5 strength with resisted external rotation at the side and 4/5 strength with resisted Devora maneuver. There is no pain with these resisted maneuvers. The left upper extremity is otherwise grossly neurovascularly intact to testing. RADIOGRAPHIC STUDIES: X-rays of the left shoulder taken in the office today are available for review and show a reverse total shoulder arthroplasty in unchanged alignment in comparison to prior films. ASSESSMENT: Status post left reverse total shoulder arthroplasty with biceps tenodesis. PLAN: Raegan is now over 6 months out from surgery. She has good range of motion on examination today but is still having weakness. She does feel that she is gaining strength and we discussed continued physical therapy. She will also continue with her home exercises. I have given her some additional deltoid strengthening exercises. I will see her back in 3 months time for her 1 year postoperative visit. We will obtain new x-rays at that time. She is agreeable with this plan. If any other questions or concerns arise in the interim, She should not hesitate to call. MYRA MARTINEZ M.D. Referring Provider: MYRA MARTINEZ [[id number]] Allergies As of Date: 04/22/2021 (No Known Allergies) Date Reviewed: 04/22/2021 Reviewed by: Swetha Hall - Fully Assessed Reason for Visit: Established Patient [175] Follow Up [171] Limited ROM [Other] xray review [Other] Primary Visit Diagnosis:Status post replacement of left shoulder joint [Z96.612] Order(s):XR SHOULDER GENERAL 3V OR MORE AP/TRUE AP/OTHER LT [[id number]] Order #: [id number] FUTURE Prescriptions as of 04/22/2021 Sig: FAMOTIDINE 40 MG TABLET Take 40 mg by mouth daily at * MONTELUKAST 10 MG TABLET Take 10 mg by mouth once gil* VENLAFAXINE 37.5 MG TABLET Take 37.5 mg by mouth once da* CARBIDOPA 25 MG-LEVODOPA 100 * Take 1 tablet by mouth three * CARBIDOPA ER 25 MG-LEVODOPA 1* Take 1 tablet by mouth three * FLUOXETINE 20 MG CAPSULE Take 2 capsules by mouth. TRELEGY ELLIPTA 100 MCG-62.5 * INL 1 PUFF PO QD ARIPIPRAZOLE 5 MG TABLET Take 5 mg by mouth. TRAZODONE 50 MG TABLET TK 1 T PO QHS ROSUVASTATIN 10 MG TABLET At bedtime PRAMIPEXOLE 0.5 MG TABLET Take 1 mg by mouth twice gil* PANTOPRAZOLE 40 MG TABLET,DEL* Take 1 tablet by mouth once d* ALBUTEROL 90 MCG/ACTUATION AE* Use as directed four(4) times* BUPROPION HCL SR 150 MG TABLE* Problem List As Of Date 04/22/2021 Noted Resolved Other plastic surgery for unacceptable cosmetic*05/16/2011 Rotator cuff tear arthropathy, left [M75.102, M*07/05/2020 History of gastric bypass [Z98.84] 07/28/2020 HTN (hypertension) [I10] 07/28/2020 Hyperlipidemia [E78.5] 07/28/2020 Parkinson's disease (HCC) [G20] 07/28/2020 COPD (chronic obstructive pulmonary disease) (H*07/28/2020 Anemia [D64.9] 03/29/2017 Chronic reflux esophagitis [K21.00] 03/29/2017 Depression [F32.9] 03/29/2017 Tremor [R25.1] 09/03/2018 Lump or mass in breast [N63.0] 03/29/2017 Cervical cancer (HCC) [C53.9] 07/28/2020 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 - docusate sodium (COLACE) 100 mg capsule (Discontinued) Take 1 capsule by mouth twice daily. - conjugated estrogens (PREMARIN) VAGINAL vaginal cream (Discontinued) Use 0.25 Applicators vaginally twice a week. for atrophy and dyspareunia. AUDRA - temazepam (RESTORIL) 30 mg ORAL Cap (Discontinued) Take by mouth at bedtime as needed. - TOPROL XL 50 MG 24 HR TAB (Discontinued) 2x daily - Phendimetrazine Tartrate (BONTR (more content not included)... Normal [facility] XR SHLDR >/=3V AP/NICOLAS AP/OTH R LTon 04-22-2021 XR SHLDR >/=3V AP/NICOLAS AP/OTHR LT * * *Final Report* * * DATE OF EXAM: Apr 22 2021 12:00PM AOX 5252 - XR SHLDR >/=3V AP/NICOLAS AP/OTHR LT / PROCEDURE REASON: Status post replacement of left shoulder joint * * * * Physician Interpretation * * * * HISTORY: Status post replacement of left shoulder joint . patient is here for a follow up visit for left shoulder surgery. TECHNIQUE: XR SHLDR >/=3V AP/NICOLAS AP/OTHR LT Laterality: LEFT Number of different views (projections): 4 COMPARISON: 08/18/2020 RESULT: No significant interval change. Status post left reverse total shoulder arthroplasty. Hardware in normal position without evidence of failure or loosening. No fractures. Mild degenerative changes at the acromioclavicular joint. No other significant abnormality. IMPRESSION: NORMAL POSTOPERATIVE FINDINGS Checker Product Design: AR Transcribe Date/Time: Apr 22 2021 12:36P Dictated by : ARAM TOLEDO MD This examination was interpreted and the report reviewed and electronically signed by: ARAM TOLEDO MD on Apr 22 2021 1:05PM EST [id number] Normal [facility] XR Shoulder - left 3 Viewson 08-18-2020 IMPRESSION: Expected postsurgical changes of a reverse total shoulder arthroplasty without complication. Checker Product Design: AR Transcribe Date/Time: Aug 18 2020 1:44P Dictated by : KEVEN NYE DO This examination was interpreted and the report reviewed and electronically signed by: GERALDO DENNIS MD on Aug 18 2020 3:42PM [facility] * * *Final Report* * * DATE OF EXAM: Aug 18 2020 1:01PM EOX 5252 - XR SHLDR >/=3V AP/NICOLAS AP/OTHR LT / PROCEDURE REASON: History of left shoulder replacement * * * * Physician Interpretation * * * * EXAMINATION: XR SHLDR >/=3V AP/NICOLAS AP/OTHR LT PATIENT/TECHNOLOGIST PROVIDED HISTORY: 2 week post op follow up left shoulder CLINICAL INFORMATION: 65 years old Female with History of left shoulder replacement 2 week post op TECHNIQUE: XR SHLDR >/=3V AP/NICOLAS AP/OTHR LT Laterality: LEFT Number of different views (projections): 4 COMPARISON: 08/04/2020 RESULT: No acute fracture or dislocation. Reverse total shoulder arthroplasty is without complication and in satisfactory anatomic alignment. Mild hypertrophic degenerative changes of the acromioclavicular joint are again appreciated. Near resolved postoperative subcutaneous gas and soft tissue swelling. No acute findings of the included left chest. Atherosclerosis of the aortic knob. DIVISION OF RADIOLOGY Provider, [facility] - 08/18/2020 * * *Final Report* * * DATE OF EXAM: Aug 18 2020 1:01PM EOX 5252 - XR SHLDR >/=3V AP/NICOLAS AP/OTHR LT / PROCEDURE REASON: History of left shoulder replacement * * * * Physician Interpretation * * * * EXAMINATION: XR SHLDR >/=3V AP/NICOLAS AP/OTHR LT PATIENT/TECHNOLOGIST PROVIDED HISTORY: 2 week post op follow up left shoulder CLINICAL INFORMATION: 65 years old Female with History of left shoulder replacement 2 week post op TECHNIQUE: XR SHLDR >/=3V AP/NCIOLAS AP/OTHR LT Laterality: LEFT Number of different views (projections): 4 COMPARISON: 08/04/2020 RESULT: No acute fracture or dislocation. Reverse total shoulder arthroplasty is without complication and in satisfactory anatomic alignment. Mild hypertrophic degenerative changes of the acromioclavicular joint are again appreciated. Near resolved postoperative subcutaneous gas and soft tissue swelling. No acute findings of the included left chest. Atherosclerosis of the aortic knob. IMPRESSION IMPRESSION: Expected postsurgical changes of a reverse total shoulder arthroplasty without complication. Checker Product Design: AR Transcribe Date/Time: Aug 18 2020 1:44P Dictated by : KEVEN NYE DO This examination was interpreted and the report reviewed and electronically signed by: GERALDO DENNIS MD on Aug 18 2020 3:42PM EST [facility] Radiology Study observation (narrative) [facility] XR Shoulder - left 3 ViewsOr dered By: [facility] Provider on 08-18-2020 [facility] CNCOon 08-07-2020 CNCO Letter Text Normal [facility] Basic Metabolic Panlon 08-05 Anion gap [Moles/Vol] 11 mmol/L Normal 0-15 [facility] Calcium [Mass/Vol] 8.5 mg/dL Normal 8.5-10.2 [facility] Chloride [Moles/Vol] 103 mmol/L Normal 97-105 [facility] CO2 [Moles/Vol] 23 mmol/L Normal 23-32 [facility] Creatinine [Mass/Vol] 0.62 mg/dL Normal 0.58-0.96 [facility] Glucose [Mass/Vol] 126 mg/dL High 74-99 [facility] Potassium [Moles/Vol] 4.5 mmol/L Normal 3.7-5.1 [facility] Sodium [Moles/Vol] 137 mmol/L Normal 136-144 [facility] Urea nitrogen [Mass/Vol] 13 mg/dL Normal 7-21 [facility] CASE MANAGEMon 08-05-2020 CASE MANAGEM HNO ID: [id number] Author: Demetra (Rn) SURY Mccracken Service: Case Management Author Type: Registered Nurse Type: Care Mgt Progress Note Filed: 08/05/2020 1:18 PM Note Text: CARE MANAGEMENT DISCHARGE NOTE SERVICE DATE: 08/05/2020 SERVICE TIME: 1:17 PM LOS: 1 day Admission Date: 08/04/2020 DISCHARGE ARRANGEMENT (list agency and phone number) Discharge Arrangement: Home Provider Name: DR Martinez CAREGIVER ASSESSMENT: Caregiver is ready, willing and able to meet the patient's needs as recommended by the inter-professional team:: Yes Does the patient have an acute stroke diagnosis, or has the patient had a stroke during this admission?: No Patient's transition needs and plan for meeting these needs: home with assist of spouse and HEP HANDOFF COMMUNICATION: Handoff to: Other Caregiver Other Caregiver Name/Phone: will follow with ortho team TRANSPORTATION ARRANGEMENTS: Transportation Arrangements: Car ADDITIONAL CONTACT RESOURCES: Future Appointments Date Time Provider Department Center 08/18/2020 1:00 PM Anne (Rn) SURY [facility] 09/14/2020 1:00 PM Anne (Rn) SURY Sherman [facility] Needs Prior to Discharge: None;Ready for Discharge IMM Follow Up Copy Given: Yes Copy given to:: Patient Method: In Person Discharged to home today with no skilled needs. Post op appointments as noted. SIGNATURE: Demetar Mccracken RN PATIENT NAME: Raegan Rabago DATE: August 05, 2020 TIME: 1:17 PM PAGER/CONTACT #: [phone] [facility] CASE MGT INIT 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 Last discharge within 30 days: No Advance Directive: Current Advance Directive: None Director Of Regulatory Affairs Attempted to Assist with AD Completion: Yes Action: Education Provided;Patient Unwilling Health LiteracyHow often do you need to have someone help you when you read instructions, pamphlets, or other written material from your doctor or pharmacy? : 1 - Never How confident are you filling out medical forms by yourself?: 1 - Extremely If Patient scores > 3 on either question, the following interventions were put into place:: Patient did not score > 3 on either question. Baseline Mental Status Prior to this Illness what was the patient's Baseline Mental Status?: Alert AND Oriented Prior to this illness, has anyone described the patient having any of the following behaviors?: Not Applicable Relationship of the informant to the patient:: Self Functional Status: Independent Does Patient Currently Receive Any Community Services or Home Care?: None Equipment Prior to Admission: Cane SOCIAL: Living Arrangements: Home Lives With: Spouse Financial Resources: RetiredPrimary Contact: Extended Emergency Contact Information Primary Emergency Contact: Hima Corbin Mobile Relation: Spouse Supportive Patient Contact:: Yes Contact Resources: Family Family Name/Phone: spouse see demographics Social Needs Food insecurity Worry: Never true Inability: Never true Resources Needed: No Social Needs Financial resource strain: Not hard at all Social Needs Transportation needs Medical: No Non-medical: No Caregiver AssessmentCaregiver is ready, willing and able to meet the patient's needs as recommended by the inter-professional team:: Yes Does the patient have an acute stroke diagnosis, or has the patient had a stroke during this admission?: No Patient's transition needs and plan for meeting these needs: home with assist of spouse and HEP Patient's perception of need for this admission: elective surgery Medication Adherance I am convinced of the importance of my prescription medication: 0 - Agree Completely I worry that my prescription medication will do more harm than good to me : 0 - Disagree Completely I feel financially burdened by my [id number] expenses for my prescription medication:: 0 - Disagree Completely Risk Score: 0 Patient is categorized as: Low risk < 2 Are you interested in bedside delivery of your medications? No Is Patient Psychosocially Complex?: No ASSESSMENT AND PLAN: Medical Needs: Medical Needs: None Psychosocial Needs: Psychosocial Needs: None FREEDOM OF CHOICE EXPLAINED: [place] of Choice Given: No Reason Not Given: No placements necessary POTENTIAL TRANSITION PLANS Home 65 y.o. female admitted s/p LTSA. 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 Anticipate DC today with no skilled needs. SIGNATURE: Demetra Mccracken RN PATIENT NAME: Raegan Rabago DATE: August 05, 2020 TIME: 1:15 PM PAGER/CONTACT #: [phone] Normal [facility] CBCon 08-05-2020 Absolute nRBC <0.01 Normal <0.01 [facility] Erythrocyte distribution width (RBC) [Ratio] 12.5 % Normal 11.5-15.0 [facility] Hematocrit (Bld) [Volume fraction] 32.9 % Low 36.0-46.0 [facility] Hemoglobin (Bld) [Mass/Vol] 11.0 g/dL Low 11.5-15.5 [facility] MCH (RBC) [Entitic mass] 30.2 pG Normal 26.0-34.0 [facility] MCHC (RBC) [Mass/Vol] 33.4 g/dL Normal 30.5-36.0 [facility] MCV (RBC) [Entitic vol] 90.4 fL Normal 80.0-100.0 [facility] Platelet mean volume (Bld) [Entitic vol] 10.7 fL Normal 9.0-12.7 [facility] Platelets (Bld) [#/Vol] 228 10*3/uL Normal 150-400 [facility] RBC (Bld) [#/Vol] 3.64 10*6/uL Low 3.90-5.20 [facility] WBC (Bld) [#/Vol] 10.35 10*3/uL Normal 3.70-11.00 [facility] NURSING PROGon 08-05-2020 NURSING PROG HNO ID: [id number] Author: Irena Cary (Rn) SURY Sawyer Service: ? Author Type: Registered Nurse Type: Nursing Progress Note Filed: 08/05/2020 12:17 PM Note Text: Nursing Progress Note Patient Name: Raegan Rabago Patient Location: [place]/-[place] Daily Note: 0740 awake, alert for am assessment. Left shoulder dressing dry, intact. Good radial pulse. Still with significant numbness left hand. Fingers warm. Denies nausea. Incentive spirometer encouraged. Pain meds, plan of care discussed. 1215 pain well controlled with block. Cleared by OT for discharge. Instructions given with voiced understanding. Patient educated on use of PRN pain medication during discharge teaching; Side effects of Narcotic medication pamphlet given to patient. Importance of taking medications with food to reduce risk of nausea and vomiting discussed. Discussed weaning off narcotics in a timely matter and to reach out to the physician if pain is not controlled or need for narcotic refills. The timing of medications, strengths, and safe doses reviewed on discharge summary. This note was completed by: Irena Sawyer RN [facility] PROGRESSon 08-05-2020 PROGRESS HNO ID: [id number] Author: Fidencio Srinivasan Service: General Internal Medicine Author Type: Physician Type: Progress Notes Filed: 08/05/2020 6:54 PM Note Text: INPATIENT PROGRESS NOTES Name: Raegan Rabago Date of Service: August 05, 2020 SUBJECTIVE: Seen and examined at bedside. Patient states pain is controlled, she has no SOB or cough. Her temp is ok, she was high when she ate oatmeal that was hot earlier. PERTINENT ROS: All others reviewed and negative except as per HPI MEDICATIONS: Current Facility-Administered Medications Medication Dose Route Frequency - oxyCODONE-acetaminophen 5-325 mg 1-2 tablet (PERCOCET) 1-2 tablet ORAL q 6 H PRN - oxyCODONE IR 5 mg tab(s) (ROXICODONE) 5 mg ORAL q 4 H PRN - polyethylene glycol 3350 17 g packet (MIRALAX, GLYCOLAX) 17 g ORAL DAILY PRN - [START ON 08/06/2020] bisacodyl EC 10 mg tab(s) (DULCOLAX) 10 mg ORAL DAILY - gabapentin 100 mg cap(s) (NEURONTIN) 100 mg ORAL q 8 H - carbidopa-levodopa 25-100 mg 1 tablet (SINEMET 25-100) 1 tablet ORAL TID - pramipexole 0.5 mg tab(s) (MIRAPEX) 0.5 mg ORAL BID - ARIPiprazole 5 mg tablet (ABILIFY) 5 mg ORAL DAILY - metoprolol succinate ER 50 mg tab(s) (TOPROL XL) 50 mg ORAL BID - buPROPion SR 150 mg tab(s) (ZYBAN SR; WELLBUTRIN SR) 150 mg ORAL DAILY - temazepam 30 mg cap(s) (RESTORIL) 30 mg ORAL HS PRN - traZODone 50 mg tab(s) (DESYREL) 50 mg ORAL AT BEDTIME - atorvastatin 40 mg tab(s) (LIPITOR) 40 mg ORAL AT BEDTIME - FLUoxetine 40 mg cap(s) (PROzac) 40 mg ORAL DAILY PHYSICAL EXAM: 08/05/20 0402 08/05/20 0825 08/05/20 0851 08/05/20 1000 BP: 103/55 113/56 Pulse: 80 76 Resp: 18 16 Temp: 36.9 ?C (98.4 ?F) (!) 38.3 ?C (100.9 ?F) 36.8 ?C (98.3 ?F) 36.2 ?C (97.2 ?F) TempSrc: Oral Oral SpO2: 95% 92% Weight: Height: GEN: well appearing, in no acute distress. SKIN: skin color, texture, turgor normal, no suspicious rashes NECK: no JVD. Supple, LUNGS: Clear BRANDO. No wheezes. CV: RRR. Normal s1/s2. No murmurs appreciated. ABD: Soft, non-tender, non-distended. Bowel sounds present. EXT: surgical dressing to left shoulder intact, dry, ice to site, area dressing bruised. No edema. Peripheral pulses present. Calves soft and non-tender bilaterally. Sling in place. Fingers warm and minimally mobile, skin tear noted to left lower arm with opsite over area and no drainage but bruised around area, about 2 inches in length NEURO: alert oriented x3 Grossly intact. No focal deficits. DATA: CBC, Coags, BMP, Mg, Phos Recent Labs 08/05/20 0627 WBC 10.35 HB 11.0* HCT 32.9* PLT 228 NA 137 K 4.5 CHLOR 103 CO2 23 BUN 13 CREAT 0.62 GLUC 126* CA 8.5 ASSESSMENT AND PLAN: Postoperative anemia due to acute blood loss [D62]: hgb 11.0. Patient is asx and VSS. 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 Continue with PT/OT. Encourage strict IS. Acute postoperative pain of left shoulder[G89.18]:Pain controlled . Pain control goals were discussed. Continue with current medications. Control pain with meds ordered. Constipation [K59.00]: continue with bowel regimen while taking pain medications. DVT ppx: will take off ASA as she has hx gastric sleeve. SCDs. Ambulation with PT/OT. Case management for dc planning-home when cleared by therapy Discussed and developed plan of care with Dr. Srinivasan. Terri Bernardo APRN.DRY MOLDER August 05, 2020 12:04 PM I have seen the patient and verified the exam. I have personally reviewed all labs and imaging results. I have discussed with the GROOMING SALON MANAGER and I have participated in castellanos components. I agree with the note as documented with additional comments if needed. The assessment and plan as outlined are reflection of our discussion. Fidencio Srinivasan MD August 05, 2020 [facility] PROGRESS HNO ID: [id number] Author: Bisi Menchaca MD Service: Orthopaedic Surgery Author Type: Resident Type: Progress Notes Filed: 08/05/2020 6:02 AM Note Text: ORTHOPAEDIC SURGERY INPATIENT PROGRESS NOTE Assessment: Raegan Rabago is a 65 year old female s/p L reverse total shoulder arthroplasty Dr. Martinez on 08/04/20 PLAN: - Antibiotics: 24 hr Ancef. - Anticoagulation: ASA 81mg BID 14 days - Wt bearing: NWB LUE - Activity / Restrictions: No ROM or PT to shoulder. AROM exercises and hand wrist elbow. Maintain ultrasling at all times aside from bathing and dressing. PT consult, appreciate recs OT consult, appreciate recs - Disposition: Home likely today, Pending PT/OT/CM evaluation - Follow up: [address] Juan Perez Subjective No o/n issues. Pain well controlled. No chest pain, shortness of breath. Numbness, tingling, weakness present with block. Objective Blood pressure 103/55, pulse 80, temperature 36.9 ?C (98.4 ?F), temperature source Oral, resp. rate 18, height 175.3 cm (5' 9 ), weight 82.1 kg (181 lb), last menstrual period 07/28/1980, SpO2 95 %. Physical Exam AAOx3, NAD Breathing comfortably at rest RRR to peripheral palpation LUE Dressing: c/d/I Compartments soft and compressible Fires AIN PIN Ulnar, firing Deltoid, weak from block Median Ulnar Radial Axillary distributions numb 2+ Radial pulse Lab Review Creatinine (mg/dL) Date Value 07/28/2020 0.66 Sodium (mmol/L) Date Value 07/28/2020 140 Potassium (mmol/L) Date Value 07/28/2020 4.4 Hemoglobin (g/dL) Date Value 07/28/2020 14.1 Hematocrit (%) Date Value 07/28/2020 43.3 WBC (k/uL) Date Value 07/28/2020 6.97 No results found for: INR No results found for: PCGLUCOSE Serum Inflammatory Markers Test 08/05/2020 WBC WBC (k/uL) Date Value 07/28/2020 6.97 ESR No results found for: WSR CRP No results found for: CRP Please scroll above for Assessment AND Plan. Bisi Menchaca MD Orthopaedic Surgery, PGY-2 [phone] After 5 and on weekends page 2BONE ([id number]) Normal [facility] THERAPY NTon 08-05-2020 THERAPY NT HNO ID: [id number] Author: Brigitte (Ot) Jose Elias Service: Occupational Therapy Author Type: Occupational Therapist Type: Therapy (PT/OT/Speech/Resp) Filed: 08/05/2020 1:42 PM Note Text: Occupational Therapy Treatment SERVICE DATE: 08/05/2020 SERVICE TIME: 1032 to 1110 ROOM: [address] Recommended Discharge Disposition: Home Anticipated Discharge Needs: Physical Assist at Home Physical Assist at Home for: Shopping;Transportation;Med ication Management;Laundry;Cleaning OT Recommendations to Nursing: OOB for meals OT 6 Clicks Score: 16 Precautions/Activity Restrictions: Weight Bearing Restrictions;Shoulder Precautions Precaution/Activity Restriction Comments: AROM hand wrist elbow 10 reps 4x/day Extremity With Weight Bearing Restricted: Left Upper Extremity Left Upper Extremity Weight Bearing Status: NWB Shoulder Precautions: No pendulums;External rotation limitation;Forward elevation limitation Shoulder External Rotation Limited To: 0 Shoulder Forward Elevation Limited To: 0 ASSESSMENT: Patient Disposition at Start of Session: Supine in Bed;Call Rios in Reach;SCDs;Family Present Patient Disposition at End of Session: Call Rios in Reach;OOB in Chair Tolerated Full Session Occupational Therapy Problem List: Education Deficit;Edema;Pain;Safety Deficits;Impaired Self Care;Decreased Skin Integrity Patient /Caregiver Goals: Go Home Goals for Plan of Care: Upper Body Bathing with: Modified Independent Upper Body Dressing with: Modified Independent Lower Body Bathing with: Modified Independent Lower Body Dressing with: Modified Independent Chair Transfer with: Modified Independent Toilet Transfer with: Modified Independent Shower Transfer with: Supervision Progress Toward Goals: Progressing as expected Rehab Potential: Good PLAN: Treatment Frequency (times per week): 2 Current admission Treatment Interventions: Education;Self Care / Home Management;Wound Care Management;Edema Management;Pain Management Plan of Care developed with: Patient TREATMENT INTERVENTIONS: Therapy Diagnosis: Reduced mobility-other;Decreased activities of daily living (ADL) Interventions Provided: Therapeutic Activity (47352);Self Senior Care Management (04376) Therapeutic Activity (10945) Treatment Minutes: 8 1 unit Skilled Intervention(s): Instructed patient in supine to sit pushing with upper extremities to sit up Instructed patient in sit to supine using safe, effective technique Instruction in sit to stand technique with proper hand placement and body positioning at edge of bed/chair Instruction in stand to sit technique with lower extremities touching chair/bed and reaching back for surface Education with non weight bearing through surgical arm, even if it stops hurting Patient with good static sitting and standing balance throughout session. Self Senior Care Management (08331) Treatment Minutes: 30 2 units Skilled Intervention(s): Education in Patient was taught shoulder precautions and protocol per Dr Martinez. Instructed and educated patient on safety with ambulation and wearing sling. Instructed and educated patient and spouse on: - ADL technique; drop arm, patient able demonstrate with moderate A and minimum cues . Patient moderate A for LE dressing. Instructed and educated patient on one handed technique for LE dressing. Recommend patient perform dressing in seated position to decrease risk of loss of balance and falls. - IADLs: encouraged patient to avoid assisting with IADLs until cleared by surgeon, -non weightbearing status and NO active range of motion at shoulder, instructed patient on active range of motion for elbow, wrist and hand to increase circulation to decrease blood clots and edema. - Patient instructed not to shower until Monday and NOT to remove the clear waterproof covering on the incision, as the surgeon will do so at the follow up visit. - patent not allowed to drive until okayed by MD - instructed patient to wear sling in public and in car for 6 weeks -Patient okay to doff sling and hang and dangle arm at side within home after 72 hours from surgery, recommended Patient to wear sling if attempting to use surgical arm within home. -instructed on technique on propping up UE on pillow for edema and pain management. - Instructed on proper don/doff technique of shoulder sling and correct positioning, patient able to demonstrated with minimum A and minimum cues - discussed ice management for pain and edema management: on 20 min and off for 40 mins. Patient seated with call light within reach and nursing notified Total Timed Code Treatment Minutes: 38 Total Treatment Time (minutes): 38 SUBJECTIVE: Current Hospital Course: Chart reviewed and no significant medical updates relevant to therapy were noted Reason for Occupational Therapy Consult: recent changes in ability to perform self cares Relevant Past Medical History: chronic obstructive pulmonary disease, depression, Parkinson's, gastric sleeve Patient Report: He can help me sometimes. Home Environment Patient Lives With: Spouse Assistance Available: PRN Entry To Home: Stairs;Without Rail Number Of Stairs Into Home: 1 Number Of Stairs To Bed/Bath: 0 Tub/Shower Type: [facility] built in bench Laundry: 1st floor Equipment Owned: Grab Bars-Shower;Hand Held Shower;Cane;Wheelchair;Show er Bench Prior Functional Level: Within Functional Limits Prior Functional Level Comments: Ind ADLs, IADLs, drives and amb no device OBJECTIVE: CURRENT FUNCTIONAL STATUS: Current Activities of Daily Living Assist Level Feeding Set Up Grooming Minimal Assistance Bathing Upper Body Moderate Assistance Bathing Lower Body Moderate Assistance Dressing Upper Body Moderate Assistance Dressing Lower Body Moderate Assistance Toileting Stand By Assistance Instrumental Activities of Daily Living Assist Level Meal/Beverage Prep Light Cleaning Laundry Medication Management with Strategies Functional Mobility Assist Level Rolling Supine to Sit Supervision Sit to Supine Supervision Scooting Supervision Sit to Stand Supervision Stand to Sit Supervision Bed to Chair Toilet/Commode Functional Mobility Supervision Please see discipline specific clinical documentation flowsheet for complete details for this therapy evaluation/treatment. SIGNATURE: Brigitte Moctezuma OTR/L PATIENT NAME: Raegan Rabago DATE: August 05, 2020 TIME: 1:33 PM [facility] THERAPY NT HNO ID: [id number] Author: Brigitte SánchezOtSuman Moctezuma Service: Occupational Therapy Author Type: Occupational Therapist Type: Therapy (PT/OT/Speech/Resp) Filed: 08/05/2020 1:26 PM Note Text: Occupational Therapy Evaluation SERVICE DATE: 08/05/2020 SERVICE TIME: 819 to 899 ROOM: [address] Recommended Discharge Disposition: Home Anticipated Discharge Needs: Physical Assist at Home Physical Assist at Home for: Shopping;Transportation;Med ication Management;Laundry;Cleaning OT Recommendations to Nursing: OOB for meals OT 6 Clicks Score: 15 Precautions/Activity Restrictions: Weight Bearing Restrictions;Shoulder Precautions Precaution/Activity Restriction Comments: AROM hand wrist elbow 10 reps 4x/day Extremity With Weight Bearing Restricted: Left Upper Extremity Left Upper Extremity Weight Bearing Status: NWB Shoulder Precautions: No pendulums;External rotation limitation;Forward elevation limitation Shoulder External Rotation Limited To: 0 Shoulder Forward Elevation Limited To: 0 ASSESSMENT: Patient Disposition at Start of Session: Supine in Bed;Call Rios in Reach;SCDs Patient Disposition at End of Session: Supine in Bed;Call Rios in Reach;SCDs Tolerated Full Session Occupational Therapy Problem List: Education Deficit;Edema;Pain;Safety Deficits;Impaired Self Care;Decreased Skin Integrity Patient /Caregiver Goals: Go Home Goals for Plan of Care: Upper Body Bathing with: Modified Independent Upper Body Dressing with: Modified Independent Lower Body Bathing with: Modified Independent Lower Body Dressing with: Modified Independent Chair Transfer with: Modified Independent Toilet Transfer with: Modified Independent Shower Transfer with: Supervision Rehab Potential: Good PLAN: Treatment Frequency (times per week): 2 Current admission Treatment Interventions: Education;Self Care / Home Management;Wound Care Management;Edema Management;Pain Management Plan of Care developed with: Patient TREATMENT INTERVENTIONS: Therapy Diagnosis: Reduced mobility-other;Decreased activities of daily living (ADL) Interventions Provided: Evaluation;Self Senior Care Management (86229) $ Evaluation-Low (25030) Billed Units: 1 unit Self Senior Care Management (64494) Treatment Minutes: 23 2 units Skilled Intervention(s): Education in Permission obtained from nursing prior to therapy. Pt greeted supine in bed. Pt agreeable to therapy. Education on nerve block and that it gradually wears off. Education on pain management. Pt instructed to use ice for 20 minutes on and 40 minutes off for decrease in swelling and pain. Pt instructed to position pillow under arm while seated to decrease pain. Education on surgical precautions and weight bearing restrictions. Patient instructed to not perform active movement of shoulder. Patient instructed to not perform pushing, pulling, or lifting with surgical arm. Patient instructed not to perform external rotation or forward flexion. Patient instructed to not bear weight through surgical arm. Education on use of incentive spirometer. Education on using sling constantly for 3 days, except when performing dressing or bathing. Pt instructed that after 3 days, sling must be worn when leaving the home and when sleeping. Patient instructed to keep layer of clothing between side of sling and skin for skin protection. Demonstration of donning and doffing of sling. Pt performed donning of sling with supervision for maintaining surgical precautions and instructions. Education on drop arm technique for bathing and dressing. Patient instructed to dress surgical side first. Patient instructed to use loose fitting pants to maintain surgical precautions. Education on active range of motion exercises. Patient instructed to perform hand, wrist, and elbow active range of motion 10 times every 4 hours. Education on use of light weight activities beginning 3 days post surgery. Patient instructed to keep elbow at waist during activities. Patient educated that performing activities prevents muscle atrophy. Education on wound care. Patient instructed not to shower until Monday and not remove the clear waterproof covering on the incision, as the surgeon will do so at the follow up visit. Patient left supine in bed with all needs in reach and sequentials on. Nursing informed and aware. Total Timed Code Treatment Minutes: 23 Total Treatment Time (minutes): 40 SUBJECTIVE: Current Hospital Course: Chart reviewed; Patient 65 year old female admitted on 08/04/20 for L reverse TSA by Dr Martinez Reason for Occupational Therapy Consult: recent changes in ability to perform self cares Relevant Past Medical History: chronic obstructive pulmonary disease, depression, Parkinson's, gastric sleeve Patient Report:I want to do everything Home Environment Patient Lives With: Spouse Assistance Available: PRN Entry To Home: Stairs;Without Rail Number Of Stairs Into Home: 1 Number Of Stairs To Bed/Bath: 0 Tub/Shower Type: [facility] built in bench Laundry: 1st floor Equipment Owned: Grab Bars-Shower;Hand Held Shower;Cane;Wheelchair;Show er Bench Prior Functional Level: Within Functional Limits Prior Functional Level Comments: Ind ADLs, IADLs, drives and amb no device OBJECTIVE: CURRENT FUNCTIONAL STATUS: Current Activities of Daily Living Assist Level Feeding Set Up Grooming Minimal Assistance Bathing Upper Body Moderate Assistance Bathing Lower Body Moderate Assistance Dressing Upper Body Maximal Assistance Dressing Lower Body Maximal Assistance Toileting Stand By Assistance Instrumental Activities of Daily Living Assist Level Meal/Beverage Prep Light Cleaning Laundry Medication Management with Strategies Functional Mobility Assist Level Rolling Supine to Sit (will assess next session) Sit to Supine Scooting Sit to Stand Stand to Sit Bed to Chair Toilet/Commode Functional Mobility Please see discipline specific clinical documentation flowsheet for complete details for this therapy evaluation/treatment. SIGNATURE: Brigitte Moctezuma OTR/L PATIENT NAME: Raegan Rabago DATE: August 05, 2020 TIME: 1:22 PM [facility] 08-04-2020 [facility] HNO ID: [id number] Author: Tracey Ling (RtNuria Dennison Service: Radiology Author Type: Soaker Hides Type: Allied Health Filed: 08/04/2020 2:39 PM Note Text: Radiology Service Progress Note PATIENT NAME: Raegan Rabago DATE OF SERVICE: August 04, 2020 TIME: 2:39 PM PATIENT IDENTITY VERIFICATION COMPLETED USING TWO (2) IDENTIFIERS: Name and Date of confirmed by patient verbally and Name and Date of confirmed by identification band. FALL SCREENING: Has the patient had 2 falls in the last year or 1 fall with injury or currently using an Ambulatory Assistive Device (Walker, Cane, Wheelchair, Crutches, etc.)? Inpatient: Screened on floor PATIENT GENDER DATA: Female. status: : No status: NO. PATIENT RELEVANT IMPLANT DATA REVIEWED: Not Applicable RADIOLOGY DEPARTMENT: General X-ray: Exam(s) Completed: Upper Extremity X-Ray(s): Shoulder, AP / TRUE AP left : PERIPHERAL IV DATA: Not applicable SIGNED BY: RT Jenn August 04, 2020 2:39 PM [facility] HNO ID: [id number] Author: Aida SánchezRtNuria Moon Service: Radiology Author Type: Soaker Hides Type: Allied Health Filed: 08/04/2020 8:07 AM Note Text: Radiology Service Progress Note PATIENT NAME: Raegan Rabago DATE OF SERVICE: August 04, 2020 TIME: 8:07 AM PATIENT IDENTITY VERIFICATION COMPLETED USING TWO (2) IDENTIFIERS: Name and Date of confirmed by patient verbally and Name and Date of confirmed by identification band. FALL SCREENING: Has the patient had 2 falls in the last year or 1 fall with injury or currently using an Ambulatory Assistive Device (Walker, Cane, Wheelchair, Crutches, etc.)? Inpatient: Screened on floor PATIENT GENDER DATA: Female. status: : No status: NO. PATIENT RELEVANT IMPLANT DATA REVIEWED: Not Applicable RADIOLOGY DEPARTMENT: General X-ray: Exam(s) Completed: Upper Extremity X-Ray(s): Shoulder, AP / TRUE AP right : PERIPHERAL IV DATA: Not applicable SIGNED BY: RT Rose August 04, 2020 8:07 AM [facility] ANE POSTPROC EVALon 020 ANES POSTPROC EVAL HNO ID: [id number] Author: Fabián Neumann Service: ? Author Type: Anesthesiologist Type: Anesthesia Postprocedure Evaluation Filed: 08/04/2020 2:12 PM Note Text: POST ANESTHESIA EVALUATION NOTE : 1955 Procedure Summary Date: 08/04/20 Room / Location: OR09 / EU OR Anesthesia Start: 1053 Anesthesia Stop: 1406 Procedure: REVERSE TOTAL SHOULDER ARTHROPLASTY (Left Shoulder) Diagnosis: Rotator cuff arthropathy of left shoulder (Rotator cuff arthropathy of left shoulder [M12.812]) Surgeons: Myra Martinez Responsible Provider: Fabián Neumann Anesthesia Type: regional, MAC, general ASA Status: 3 Anesthesia Type: regional, MAC, general Last vitals Vitals Value Taken Time BP 121/59 08/04/20 1410 Temp 36 ?C (96.8 ?F) 08/04/20 1400 Pulse 80 08/04/20 1410 Resp 12 08/04/20 1410 SpO2 97 % 08/04/20 1410 Vitals shown include unvalidated device data. Post Anesthesia Patient Status Patient Evaluation: bedside. Anticipated Disposition: inpatient floor planned admission. Neurological Status: aware and responsive. Pulmonary Status: breathing comfortably on room air Airway Control: returned to baseline unsupported. Cardiovascular Status: stable. Pain Management: clinically adequate Postoperative Hydration: acceptable. Intraoperative Events: no significant anesthesia events Post Operative Nausea/Vomiting Status: no significant post operative nausea or vomiting Anesthetic Observations: no significant anesthetic observations Recommendation: continue current plan of care. SIGNATURE: Fabián Neumann MD PATIENT NAME: Raegan Rabago DATE: August 04, 2020 TIME: 2:12 PM CSN: [id number] [facility] ANES PRE-OPon 08-04-2020 ANES PRE-OP HNO ID: [id number] Author: Lita Sahu (Srna) Service: ? Author Type: Student Type: Anesthesia Preprocedure Evaluation Filed: 08/04/2020 2:31 PM Note Text: ANESTHESIOLOGY DAY OF SURGERY NOTE : 1955 Procedure(s) (LRB): REVERSE TOTAL SHOULDER ARTHROPLASTY (Left) Surgeon(s): Myra Martinez Estimated body mass index is 26.73 kg/m? as calculated from the following: Height as of this encounter: 175.3 cm (5' 9 ). Weight as of this encounter: 82.1 kg (181 lb). Most recent hematocrit and potassium results: Hematocrit 43.3 07/28/2020 Potassium 4.4 07/28/2020 Relevant Problems CARDIO (+) HTN (hypertension) PULMONARY (+) COPD (chronic obstructive pulmonary disease) (HCC) Uses Albuterol PRN, last dose was a couple days ago, when pt experiences tightness around chest. I - PHYSICAL EVALUATION AIRWAY Patient intubated: No. Tracheostomy tube not present Mallampati: II. TM distance: >3 FB. Neck ROM: full ROM without neurological symptoms. Mouth opening: adequate. Short neck: no. Thick neck: no DENTAL Dentures, upper: partial. Additional exam findings: no II - ANESTHESIA PLAN ASA Score: 3 Anesthetic Plan: regional and MAC The patient is not a current smoker. NPO Status: adequate Monitoring plan: standard ASA. Postoperative analgesic plan: multimodal analgesia, peripheral nerve block and per surgical service. Anesthetic Risks, Benefits, Alternatives, Personnel Discussed. Consent obtained from: patient. Patient / Surrogate agrees to blood products: Yes Significant changes in the patient condition since the History and Physical, not otherwise documented in primary service progress note: no. Potential Anesthesia issues that may suggest increased risk of complications or contraindication to planned procedure: none. Addendum to Anesthesia Plan of Care: General Anesthesia with LMA or ETT based on provider preference as dicussed with pt pre-operatively. Vitals Value Taken Time BP 134/78 08/04/20840 Pulse 80 08/04/20840 Resp 18 08/04/20840 Temp 36.6 ?C (97.9 ?F) 08/04/20840 SpO2 97 % 08/04/20840 Facility-Administered Medications as of 08/04/2020 Medication Dose Route Frequency - lidocaine 10 mg/mL (1 %) 1-2 mg injection (XYLOCAINE) 0.1-0.2 mL INTRADERMAL PRN - lactated ringers infusion 5-30 mL/hr INTRAVENOUS CONTINUOUS - ceFAZolin iv piggyback 2 g in D5W (iso-osmotic) 100 mL (ANCEF) 2 g INTRAVENOUS Pre-Op Once - acetaminophen 1,000 mg tab(s) (TYLENOL) 1,000 mg ORAL ONCE - midazolam (PF) 2 mg injection (VERSED) 2 mg INTRAVENOUS ONCE - ipratropium-albuterol 3 mL nebulizer solution (DUONEB) 3 mL INHALATION NOW Outpatient Medications as of 08/04/2020 Medication Sig - carbidopa-levodopa CR (SINEMET CR) 25-100 mg per tablet Take 1 tablet by mouth three times daily. - FLUoxetine (PROZAC) 20 mg capsule Take 2 capsules by mouth. - wpwfmsxaloc-pnlbbshni-shzqh ter (TRELEGY ELLIPTA) 100-62.5-25 mcg INL 1 PUFF PO QD - ARIPiprazole (ABILIFY) 5 mg tablet Take 5 mg by mouth. - traZODone (DESYREL) 50 mg tablet TK 1 T PO QHS - rosuvastatin (CRESTOR) 10 mg tablet At bedtime - pramipexole (MIRAPEX) 0.5 mg tablet Take 1 mg by mouth twice daily. - Phendimetrazine Tartrate (BONTRIL PDM) 35 mg ORAL Tab Take by mouth daily at bedtime. - pantoprazole (PROTONIX) 40 mg ORAL tablet Take 1 tablet by mouth once daily. - conjugated estrogens (PREMARIN) VAGINAL vaginal cream Use 0.25 Applicators vaginally twice a week. for atrophy and dyspareunia. AUDRA - ALBUTEROL 90 MCG/ACTUATION AEROSOL INHALER Use as directed four(4) times daily. - FLONASE 50 MCG/ACTUATION NASAL SPRAY AEROSOL Use daily as directed. - BUPROPION SR 150 MG TAB - oxyCODONE-acetaminophen (PERCOCET) 5-325 mg tablet Take 1 tablet by mouth every 6 hours as needed for up to 7 days. for pain. - docusate sodium (COLACE) 100 mg capsule Take 1 capsule by mouth twice daily. - aspirin 81 mg chewable tablet Take 1 tablet by mouth twice daily for 14 days. - gabapentin (NEURONTIN) 100 mg ORAL capsule Take 1 capsule by mouth three times daily. - temazepam (RESTORIL) 30 mg ORAL Cap Take by mouth at bedtime as needed. - TOPROL XL 50 MG 24 HR TAB 2x daily I have interviewed and examined the patient. I have reviewed the medical record and/or the pre-anesthesia evaluation, pertinent labs, and test results. This contains updated information obtained within 48 hours of Surgery/Procedure. SIGNATURE: JILLIAN Mchugh PATIENT NAME: Raegan Rabago DATE: August 04, 2020 TIME: 9:07 AM CSN: [id number] [facility] CONSULTon 08-04-2020 CONSULT HNO ID: [id number] Author: Fidencio Srinivasan Service: General Internal Medicine Author Type: Physician Type: Consults Filed: 08/04/2020 6:07 PM Note Text: HISTORY AND PHYSICAL EXAMINATION PATIENT NAME: Raegan Rabago SERVICE DATE: 08/04/2020 SERVICE TIME: 3:20pm PRIMARY CARE PHYSICIAN: Devin Raymundo DO REASON FOR CONSULT: Perioperative managment CHIEF COMPLAINT: S/p Left reverse Total Shoulder Arthroplasty HPI: This is a 65 year old female with history of COPD, parkinson's disease, HTN, depression, left TKA, vulvular cancer, who presents with complaints of worsening left shoulder pain. She states she has had pain for many years and this is her third surgery on shoulder. She had torn rotator cuff in past.Pain increases with use and decreases with rest and is intermittent. Her ct showed glenohumeral arthrosis with proximal migration humeral head secondary to rotator cuff arthropathy osteophytes, hypertrophic acromioclavicular arthrosis and muscle atrophy. She was evaluated by DR Martinez and underwent Left reverse Total Shoulder Arthroplasty. She had aerosol prior to surgery due to her dx of COPD, but she states she has no cough, wheezes or SOB and did not have problems prior to OR either. She has no pain. PAST MEDICAL HISTORY: PAST MEDICAL HISTORY Diagnosis Date - Cervical cancer (HCC) - COPD (chronic obstructive pulmonary disease) (HCC) - Herniated disc - Hypersomnia with sleep apnea, unspecified - Major depressive disorder, single episode, mild (HCC) - Mixed hyperlipidemia - Other and unspecified ovarian cyst Ovarian cyst - Parkinson's disease (HCC) - Spinal headache - Unspecified essential hypertension - Vulvar cancer ([facility]) PAST SURGICAL HISTORY: PAST SURGICAL HISTORY Procedure Laterality Date - ABDOMINOPLASTY - GASTRIC BYPASS 2006 sleeve - LIGATE FALLOPIAN TUBE - PAST SURGICAL HISTORY OF sinus surgery - PAST SURGICAL HISTORY OF breast reduction - PAST SURGICAL HISTORY OF body lift (arms, belly, thighs) - PAST SURGICAL HISTORY OF back surgery - PAST SURGICAL HISTORY OF left breast biopsy x 3 - PAST SURGICAL HISTORY OF 2018 mass removed from back of foot - REMOVAL GALLBLADDER Cholecystectomy - REMOVAL OF OVARY(S) Oophorectomy - REPAIR ROTATOR CUFF,ACUTE Rotator cuff repair x 4 - SHX TOTAL SHOULDER REVERSE Right - TOTAL ABDOM HYSTERECTOMY - TOTAL KNEE REPLACEMENT Left FAMILY HISTORY: FAMILY HISTORY Problem Relation Age of Onset - Cancer Father bladder - Diabetes Father - Aneurysm Mother - Coronary Artery Disease Brother SOCIAL HISTORY: Social History Tobacco Use - Smoking status: Former Smoker Packs/day: 1.50 Years: 35.00 Pack years: 52.50 Types: Cigarettes Quit date: 2004 Years since quittin.6 - Smokeless tobacco: Never Used - Tobacco comment: quit 03/31 Substance Use Topics - Alcohol use: Yes Frequency: Monthly or less Drinks per session: 1 or 2 Binge frequency: Never - Drug use: No MEDICATIONS: Prior to Admission Medications - mupirocin (BACTROBAN) 2 % ointment, Apply 0.5 inch with cotton swab (Q-tip) to each nostril in the morning and evening for 5 days prior to and including day of surgery., Disp: 22 g, Rfl: 0, 08/04/2020 at 0500 - carbidopa-levodopa (SINEMET) 25-100 mg per tablet, Take 1 tablet by mouth three times daily., Disp: , Rfl: , 08/04/2020 at 0830 - carbidopa-levodopa CR (SINEMET CR) 25-100 mg per tablet, Take 1 tablet by mouth three times daily. , Disp: , Rfl: , 08/04/2020 at Unknown time - FLUoxetine (PROZAC) 20 mg capsule, Take 2 capsules by mouth., Disp: , Rfl: , 08/04/2020 at 0500 - qfvcurcwqgu-vcgmpyhcs-llgbc ter (TRELEGY ELLIPTA) 100-62.5-25 mcg, INL 1 PUFF PO QD, Disp: , Rfl: , 08/03/2020 at 0800 - ARIPiprazole (ABILIFY) 5 mg tablet, Take 5 mg by mouth., Disp: , Rfl: , 08/03/2020 at 0800 - traZODone (DESYREL) 50 mg tablet, TK 1 T PO QHS, Disp: , Rfl: , 08/03/2020 at 2200 - rosuvastatin (CRESTOR) 10 mg tablet, At bedtime , Disp: , Rfl: , 08/03/2020 at 2200 - pramipexole (MIRAPEX) 0.5 mg tablet, Take 1 mg by mouth twice daily. , Disp: , Rfl: , 08/04/2020 at 0500 - Phendimetrazine Tartrate (BONTRIL PDM) 35 mg ORAL Tab, Take by mouth daily at bedtime., Disp: , Rfl: 0, at Unknown time - pantoprazole (PROTONIX) 40 mg ORAL tablet, Take 1 tablet by mouth once daily., Disp: , Rfl: 0, 08/03/2020 at 2200 - conjugated estrogens (PREMARIN) VAGINAL vaginal cream, Use 0.25 Applicators vaginally twice a week. for atrophy and dyspareunia. AUDRA, Disp: 1 Tube, Rfl: 4, Unknown at Unknown time - ALBUTEROL 90 MCG/ACTUATION AEROSOL INHALER, Use as directed four(4) times daily., Disp: , Rfl: 0, Past Week at Unknown time - FLONASE 50 MCG/ACTUATION NASAL SPRAY AEROSOL, Use daily as directed., Disp: , Rfl: 0, at Unknown time - BUPROPION SR 150 MG TAB, , Disp: , Rfl: 0, 08/04/2020 at 0500 - gabapentin (NEURONTIN) 100 mg ORAL capsule, Take 1 capsule by mouth three times daily., Disp: , Rfl: 0, Unknown at Unknown time - temazepam (RESTORIL) 30 mg ORAL Cap, Take by mouth at bedtime as needed., Disp: , Rfl: 0, Unknown at Unknown time - TOPROL XL 50 MG 24 HR TAB, 2x daily, Disp: , Rfl: 0, Unknown at Unknown time In-Patient Medications Current Facility-Administered Medications Medication Dose Route Frequency - lactated ringers infusion 5-30 mL/hr INTRAVENOUS CONTINUOUS - ceFAZolin iv piggyback 2 g in D5W (iso-osmotic) 100 mL (ANCEF) 2 g INTRAVENOUS q 8 HR - [START ON 08/05/2020] aspirin, enteric coated 81 mg tab(s) 81 mg ORAL BID - NaCl 0.9% iv infusion 5-30 mL/hr INTRAVENOUS CONTINUOUS - oxyCODONE-acetaminophen 5-325 mg 1-2 tablet (PERCOCET) 1-2 tablet ORAL q 6 H PRN - oxyCODONE IR 5 mg tab(s) (ROXICODONE) 5 mg ORAL q 4 H PRN - [START ON 08/05/2020] polyethylene glycol 3350 17 g packet (MIRALAX, GLYCOLAX) 17 g ORAL DAILY PRN - [START ON 08/06/2020] bisacodyl EC 10 mg tab(s) (DULCOLAX) 10 mg ORAL DAILY - gabapentin 100 mg cap(s) (NEURONTIN) 100 mg ORAL q 8 H - carbidopa-levodopa 25-100 mg 1 tablet (SINEMET 25-100) 1 tablet ORAL TID - pramipexole 0.5 mg tab(s) (MIRAPEX) 0.5 mg ORAL BID - ARIPiprazole 5 mg tablet (ABILIFY) 5 mg ORAL DAILY - metoprolol succinate ER 50 mg tab(s) (TOPROL XL) 50 mg ORAL BID - buPROPion SR 150 mg tab(s) (ZYBAN SR; WELLBUTRIN SR) 150 mg ORAL DAILY - temazepam 30 mg cap(s) (RESTORIL) 30 mg ORAL HS PRN - FLUoxetine 40 mg cap(s) (PROzac) 40 mg ORAL BID - traZODone 50 mg tab(s) (DESYREL) 50 mg ORAL AT BEDTIME - atorvastatin 40 mg tab(s) (LIPITOR) 40 mg ORAL AT BEDTIME ALLERGIES: ALLERGIES No Known Allergies COMPLETE REVIEW OF SYSTEMS: GENERAL: No weight loss, malaise or fevers. HEENT: Negative for significant vision problems, hearing loss, hoarseness RESPIRATORY: Negative for cough, wheezing or shortness of breath, + COPD uses trilegy . CARDIOVASCULAR: Negative for leg swelling, palpitations, orthopnea GI: Negative for abdominal discomfort, change in bowel habit, diarrhea, nausea, vomiting, hx gastric sleeve NEURO: Negative for headaches, syncope, paralysis, seizures, + tremors upper extremity has parkinson's . All other reviewed and negative other than HPI. PHYSICAL EXAM: 08/04/20 1430 08/04/20 1445 08/04/20 1500 08/04/20 1519 BP: 116/64 108/62 108/57 91/72 Pulse: 81 80 78 84 Resp: 16 16 17 Temp: 36.3 ?C (97.3 ?F) TempSrc: SpO2: 93% 93% 93% 92% Weight: Height: GEN: chronically ill Appearing, female, in no acute distress. SKIN: skin color, texture, turgor normal. No rash. HEENT: no tenderness. PERRL. EOMI. Buccal mucosa moist. NECK: Supple, no adenopathy, no JVD. LUNGS: Clear BRANDO. No wheezes. CV: RRR. Normal s1/s2. No murmurs appreciated. ABD: Soft, non-tender, non-distended. Bowel sounds present x 4. EXT: surgical dressing to left shoulder intact, dry, ice to site, area dressing bruised. No edema. Peripheral pulses present. Calves soft and non-tender bilaterally. Sling in place. Fingers warm and minimally mobile. NEURO: AANDOx3. Grossly intact. No focal deficits. 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 Continue with PT/OT. Encourage strict IS. Acute postoperative pain of left shoulder[G89.18]:Pain controlled . Pain control goals were discussed. Continue with current medications. Control pain with meds ordered. Constipation [K59.00]: continue with bowel regimen while taking pain medications. DVT ppx: will take off ASA as she has hx gastric sleeve. SCDs. Ambulation with PT/OT. CBC and BMP daily. Case management for dc planning. Discussed common complications and risks with the patient including fever, blood clots, constipation, pain, nausea/vomiting and infection. Encouraged use of incentive spirometer. Above was discussed and plan of care was developed with Dr. Srinivasan. Please see additional comments and addendum. Thank you for allowing us to participate in the care of your patient. Terri Bernardo APRN.DRY MOLDER August 04, 2020 3:28 PM I have seen the patient and verified the exam. I have personally reviewed all labs and imaging results. I have discussed with the GROOMING SALON MANAGER and I have participated in castellanos components. I agree with the note as documented with additional comments if needed. The assessment and plan as outlined are reflection of our discussion. Fidencio Srinivasan MD August 04, 2020 [facility] NURSING PROGon 08-04-2020 NURSING PROG HNO ID: [id number] Author: Sola SánchezRn) SURY Irvin Service: Nursing Author Type: Registered Nurse Type: Nursing Progress Note Filed: 08/04/2020 10:17 PM Note Text: Nursing Progress Note Patient Name: Raegan Rabago Patient Location: [place]/-[place] Daily Note: Assumed care of patient. Patient alert and awake. Denies any complaints of SOB. Denies calf pain. Lungs clear on ascultation. Bowel sounds are present. Abdomen is soft and non tender. + left radial pulse. Fingers warm unable to wiggle pt numb. Patient verbalized no pain to left shoulder. transparent dressing to left shoulder is clean dry and intact . Assessment is complete see NPR. IVF infusing. Draining.Incentive spirometer is within reach. Discussed plan. Denies any further need at this time. Safety precautions are in place at this time. Call light within reach. Will continue to monitor. This note was completed by: SOLA IRVIN RN [facility] NURSING PROG HNO ID: [id number] Author: Nisha (Rn) SURY Lemos Service: ? Author Type: Registered Nurse Type: Nursing Progress Note Filed: 08/04/2020 3:24 PM Note Text: Nursing Progress Note Patient Name: Raegan Rabago Patient Location[place] [id number] [address] Daily Note: 1510- Pt resting in bed, denies having any chest pain or SOB. Fingers are warm to touch, able to wiggle. Dressing is dry and intact. Discussed plan of care. Denies having any further needs at this time. Call light within reach. This note was completed by: Nisha Lemos RN [facility] OPERATIVE NOon 08-04-2020 OPERATIVE NO HNO ID: [id number] Author: Myra Martinez Service: Orthopaedic Surgery Author Type: Physician Type: Operative Report Filed: 08/04/2020 9:09 PM Note Text: [place] [address] [place] OPERATIVE REPORT NAME: Raegan Rabago [facility] #: [id number] DATE: 08/04/2020 (11:43am-1:43pm) AGE: 65 SURGEON 1: Myra Martinez M.D. LANDSCAPE LABORER: 1. Shon Francois M.D. 2. Bisi Menchaca M.D. 3. Ochoa Holguin OPERATION: Left reverse total shoulder arthroplasty, removal of hardware, biceps tenodesis. ANESTHESIA: General anesthesia with regional interscalene nerve block for postoperative pain control. PREOPERATIVE DIAGNOSIS: Left shoulder rotator cuff tear arthropathy, retained hardware. POSTOPERATIVE DIAGNOSIS: Left shoulder rotator cuff tear arthropathy, retained hardware, biceps tendinopathy. OPERATIVE INDICATIONS: The patient is a 65 year old right dominant female with chronic left shoulder complaints from rotator cuff tear arthropathy that have failed to improve with nonoperative management. Due to the failure of nonoperative management, discussion was had about surgical intervention in the form of a left reverse total shoulder arthroplasty. The risks and benefits of the surgery, as well as the expected postoperative course were discussed with the patient at length. The patient understood the risks and benefits, and wished to proceed with the operation. OPERATIVE FINDINGS: The upper subscapularis tendon was torn. There was no full-thickness tear along the superior and posterior rotator cuff, but the supraspinatus tendon was highly attenuated throughout. There were significant arthritic changes in the joint. OPERATIVE PROCEDURE: On the day of surgery, the patient was seen in the preoperative area. The planned surgical procedure and the correct surgical site were again reviewed with the patient and the left upper extremity was marked. Prior to being taken back to the operating room, the patient did receive an interscalene nerve block in her left upper extremity for postoperative pain control. Preoperative antibiotics were given. The patient was then taken back to the operating room and intubated without complications. She was placed in the beach chair position, and the left upper extremity was prepped and draped in the usual sterile fashion. A standard 10-15 cm deltopectoral incision was made along the anterior aspect of the left shoulder. The incision was carried sharply down to the level of the deep fascia. The cephalic vein was identified and taken laterally with the deltoid, while the pectoralis major was taken medially, and dissection was taken through the deltopectoral interval. The upper 1-1.5 cm of the pectoralis major tendon was released from its attachment site on the humerus for greater exposure. The subdeltoid and subacromial spaces were developed deeply. The interval between the conjoined and subscapularis tendons was next developed up to the coracoacromial ligament, but this was not taken. Digital palpation was used to verify the integrity of the axillary nerve, which was protected throughout the procedure. The conjoint tendon was then retracted with the self-retaining retractor medially to expose the subscapularis tendon deep to this. The anterior humeral circumflex vessels were clamped and coagulated. The biceps sheath and rotator interval were then opened up. The long head of the biceps tendon showed advanced degenerative changes proximally consistent with tendinopathy. Therefore, the tendon was tenodesed to the upper border of the pectoralis major tendon insertion. The degenerative, more proximal remaining portion of the tendon was then excised up to its origin at the superior aspect of the glenoid. The bicipital groove was then further cleaned of soft tissue to better expose the lesser tuberosity and subscapularis insertion. The upper subscapularis tendon was torn. The remaining subscapularis and anterior capsule were then taken down in one sleeve of tissue subperiosteally off of the lesser tuberosity. The tissue was released down to the 6 o'clock position on the anatomic neck of the humeral head to allow delivery of the humeral head into the wound with simultaneous adduction, extension, and external rotation. With the humeral head dislocated and exposed, the articular surface showed advanced degenerative changes. The rotator cuff was inspected and neither the supraspinatus and infraspinatus tendons were torn, but the remaining supraspinatus tendon was highly attenuated throughout. All humeral osteophytes were removed along the anatomic neck. We then marked the anatomic neck with an extra-articular cutting guide with a fixed neck-shaft angle of 135 degrees. The humeral head cut was made along this marked site going anteriorly to posteriorly, making sure to exit posteriorly just above the reflection of the rotator cuff. The humeral cut was made in approximately 30 degrees of retroversion. We did not finish the humerus at this point. We then brought the shoulder into an abducted, extended, and externally rotated position for exposure of the glenoid. The humerus was retracted posteriorly with a Fukuda retractor. The capsule was released anteriorly from the labrum initially and anterior glenoid retractors were then placed. The anteroinferior capsule was excised. The remaining capsule was then circumferentially released from the glenoid rim and labrum. Care was taken to adequately release the capsule inferiorly for adequate exposure of the inferior glenoid rim. Part of the triceps origin was released inferiorly as part of this exposure. Following this, the labrum was excised circumferentially to completely expose the glenoid rim. We then drilled the central drill hole in an inferior position on the glenoid, centered in the midline. The drill hole was then tapped and the cannulated reamer was brought in over the tap and reamed the glenoid just to the start of bleeding bone. The glenoid baseplate (DJO AltiVate Reverse) was then opened up and screwed into the glenoid until it was seated flush on bone and securely compressed. The locking screw guide was then placed on the baseplate, and the four locking screw holes were drilled. The inferior and superior locking screws were placed first, and measured 30 mm and 26 mm, respectively. The anterior and posterior locking screws were placed next, and measured 18 mm and 18 mm, respectively. All screws were tightened until fully locked. Manually reaming was then performed around the baseplate. A 32 mm, -4 mm glenosphere (DJO AltiVate Reverse) was placed over the baseplate and secured and then the proximal humerus was redelivered into the wound with adduction, extension, and external rotation. The cut surface of the humerus was then prepared. The proximal humerus was reamed using the reamer. Suture and a prior rotator cuff anchor were removed. A 6-mm entry reamer was then placed into the humeral intramedullary canal. The canal was reamed up to a size 12 mm reamer and then broached. The trial size #12 short stem humeral implant with small shell was then placed, again making sure to place the implant in approximately 30 degrees of retroversion. We placed trial liners into the implant and reduced the shoulder to determine the best fit. The +4 mm polyethylene liner showed the best soft tissue tensioning, with no significant areas of impingement, including inferiorly with adduction. The humerus was, therefore, redislocated and the decision was made to proceed with a +4 mm liner. An uncemented #12 short stem with small shell and a +4 mm polyethylene liner were opened (DJO AltiVate Reverse). Prior to placing the humeral stem, drilled holes were made along the cut surface of the humerus anteriorly for passage of sutures for the subscapularis repair. Three, #2 Fiberwire sutures were then passed in a horizontal mattress fashion through these drill holes on the cut surface. We then impacted the final humeral prosthesis (DJO AltiVate Reverse) into the humeral canal. Once the stem was securely impacted, the +4 mm polyethylene liner was impacted into the humeral implant. The shoulder was then reduced, and the wound was copiously irrigated. The subscapularis tendon was then repaired back to the cut surface of the humerus. Each of the #2 Fiberwire sutures were passed through the tendon edge in a horizontal mattress fashion and sequentially tied down to reduce the tendon edge back to the cut surface of the humerus. The lateral rotator interval was closed. Following this, all retractors were removed, and digital palpation was again used to confirm the integrity of the axillary nerve. The wound was again thoroughly irrigated. A total of 5 L of pulse irrigation was used throughout the case. The deltopectoral interval was loosely closed with interrupted #1 Vicryl stitches. The subcutaneous layer was then closed with interrupted 2-0 Vicryl stitches. A running subcuticular 3-0 monocryl suture and dermabond was then used to close the skin. The wound was sterilely dressed. The shoulder was then placed in an abduction sling. The patient was awoken without complication and extubated. She was transferred to the PACU in stable condition. Closing of the incision was performed by Bisi Menchaca M.D., and Ochoa Holguin, with the primary surgeon (Myra Martinez M.D.) readily available. The remainder of the procedure, including all critical elements, was completed by the primary surgeon (Myra Martinez M.D.) with assistance from Shon Francois M.D., and Bisi Menchaca M.D. ESTIMATED BLOOD LOSS: 150 cc DRAINS: none SPECIMENS: none COMPLICATIONS: none apparent Myra Martinez M.D. [facility] PT EDon 08-04-2020 PT ED HNO ID: [id number] Author: Irena Marie RN Service: Nursing Author Type: Registered Nurse Type: Patient Education Filed: 08/04/2020 8:00 AM Note Text: PRE OP LEARNING ASSESSMENT PROCEDURE/SURGERY: SURGERY: total left shoulder READINESS TO LEARN COGNITIVE ABILITY: Alert and oriented MOTIVATION TO LEARN: Eager FAMILY SUPPORT: High - Very involved in pt care PATIENT LEARNS BEST BY: Individual Instruction FACTORS AFFECTING LEARNING: None PHYSICAL LIMITATIONS AFFECTING LEARNING: None Electronically Signed By: Irena Marie RN In Department: [facility] SURGICAL SERVICES Normal [facility] XR SHOULDER 2V AP/TRUE AP LT on 08-04-2020 XR SHOULDER 2V AP/TRUE AP LT * * *Final Report* * * DATE OF EXAM: Aug 04 2020 2:38PM [id number] 5254 - XR SHOULDER 2V AP/TRUE AP LT / PROCEDURE REASON: Post-operative / post-procedure assessment, asymptomatic * * * * Physician Interpretation * * * * RESULT: PORTABLE LEFT SHOULDER X-RAY HISTORY: Post-operative / post-procedure assessment, asymptomatic TECHNIQUE: Portable AP and lateral Y views. COMPARISON: 07/31/2020 CT scan RESULT: Status post placement of a new left shoulder reverse joint prosthesis. Scapular and humeral components in satisfactory position in both projections. IMPRESSION: Left shoulder joint prosthesis in satisfactory position. Transcribed Using Voice Recognition Transcribe Date/Time: Aug 04 2020 2:56P Dictated by: KOLE TATE MD This examination was interpreted and the report reviewed and electronically signed by: KOLE TATE MD on Aug 04 2020 2:58PM EST [id number] [facility] XR SHOULDER SPECIFY 1V RTon 08-04-2020 XR SHOULDER SPECIFY 1V RT * * *Final Report* * * DATE OF EXAM: Aug 04 2020 8:05AM [id number] [id number] - XR SHOULDER SPECIFY 1V RT / PROCEDURE REASON: Arthritis, shoulder * * * * Physician Interpretation * * * * RESULT: Right shoulder HISTORY: 65 years old Clinical information: Arthritis, shoulder pt having lt shoulder surgery today, pain in rt shoulder TECHNIQUE: Images: XR SHOULDER SPECIFY 1V RT Comparison: None. RESULT: Findings: Single AP view of the RIGHT shoulder demonstrates findings of a total shoulder joint replacement with methylmethacrylate fixation. Based on this single projection alignment appears anatomic. No fracture is evident. IMPRESSION: No acute bony finding. Transcribed Using Voice Recognition Transcribe Date/Time: Aug 04 2020 8:11A Dictated by: TOM CRAIG MD This examination was interpreted and the report reviewed and electronically signed by: TOM CRAIG MD on Aug 04 2020 8:12AM EST [id number] [facility] CT SHOULDER WO IVCON LTon [facility] NURSING PROGon 07-29-2020 NURSING PROG HNO ID: [id number] Author: Jessy (Rn) SURY Haddad Service: ? Author Type: Registered Nurse Type: Nursing Progress Note Filed: 07/29/2020 11:48 AM Note Text: PACC Nurse Progress Note History AND Physical: PACC Visit Date: 07/28/2020 Original HANDP Date: N/A ED visit Date: N/A Outside HANDP Scanned Date: N/A Labs Within Last 6 Months: CBC, BMP/CMP: Date 07/28/2020 within normal limits TYPE AND SCREEN, [place]: Date 07/28/2020 see chart OTHER TEST: Covid test ordered, Date Scheduled 08/01/2020 check Epic for results Imaging Within Last 12 Months: Chest X-ray Date of test: 07/28/2020 See chart Cardiac Testing: EKG in last 12 Months: 07/28/2020, Comment: (NSR, nonspecifice ST AND T wave abnormality) Last Menstrual Period: LMP Date: N/A Postmenopausal >1yr: Yes, S/P Hysterectomy: Yes BMI Percentile (PEDS): N/A Risk Assessment: N/A Anesthesia Review: N/A Narrative: Per HPI: COPD; GERD; Anemia; S/P gastric sleeve/BMI-26.77-2006; Parkinson; Anxiety Pre-op Considerations: -Difficult IV access Chart Check: COMPLETED Jessy Haddad RN July 29, 2020 11:43 AM [facility] Confirm Blood Typeon 020 ABO/RH(D) Positive [facility] XR CHEST 2V FRONTAL/LATon XR CHEST 2V FRONTAL/LAT * * *Final Report* * * DATE OF EXAM: Jul 28 2020 3:40PM HMX [id number] - XR CHEST 2V FRONTAL/LAT / PROCEDURE REASON: Chronic obstructive pulmonary disease, unspecified COPD type (HCC) * * * * Physician Interpretation * * * * RESULT: EXAMINATION: CHEST RADIOGRAPH (2 VIEW FRONTAL and LATERAL) CLINICAL HISTORY: Chronic obstructive pulmonary disease, unspecified COPD type (HCC) MQ: [id number] EXAM DATE/TIME: 07/28/2020 3:40 PM COMPARISON: 2006 unavailable RESULT: Right hemidiaphragm elevation. Heart normal size. Right shoulder prosthesis. Lucency in theleft chest is is a skin fold, not a pneumothorax.. DJD. Poor inspiration producing crowded lung markings. IMPRESSION: No acute radiographic abnormality. Transcribed Using Voice Recognition Transcribe Date/Time: Jul 28 2020 3:58P Dictated by: ARLYN PULIDO DO This examination was interpreted and the report reviewed and electronically signed by: ARLYN PULIDO DO on Jul 28 2020 4:10PM EST [id number] [facility] HOSPon 07-19-2020 HOSP Patient:Raegan Rabago MRN: Height:5' 9 (1.753 m) Weight:189 lb (85.73 kg) Outpatient Medications as of 08/04/20: oxyCODONE-acetaminophen (PERCOCET) 5-325 mg tablet docusate sodium (COLACE) 100 mg capsule aspirin 81 mg chewable tablet mupirocin (BACTROBAN) 2 % ointment carbidopa-levodopa (SINEMET) 25-100 mg per tablet carbidopa-levodopa CR (SINEMET CR) 25-100 mg per tablet FLUoxetine (PROZAC) 20 mg capsule xjbutsaojqh-kihninbdp-nnzim ter (TRELEGY ELLIPTA) 100-62.5-25 mcg ARIPiprazole (ABILIFY) 5 mg tablet traZODone (DESYREL) 50 mg tablet rosuvastatin (CRESTOR) 10 mg tablet pramipexole (MIRAPEX) 0.5 mg tablet gabapentin (NEURONTIN) 100 mg ORAL capsule temazepam (RESTORIL) 30 mg ORAL Cap Phendimetrazine Tartrate (BONTRIL PDM) 35 mg ORAL Tab pantoprazole (PROTONIX) 40 mg ORAL tablet conjugated estrogens (PREMARIN) VAGINAL vaginal cream ALBUTEROL 90 MCG/ACTUATION AEROSOL INHALER FLONASE 50 MCG/ACTUATION NASAL SPRAY AEROSOL BUPROPION SR 150 MG TAB TOPROL XL 50 MG 24 HR TAB Admission/Clinic Administered Medications as of 08/04/20: lidocaine 10 mg/mL (1 %) 1-2 mg injection (XYLOCAINE) lactated ringers infusion Problem List: Other plastic surgery for unacceptable cosmetic appearance [Z41.1] Rotator cuff tear arthropathy, left [M75.102, M12.812] History of gastric bypass [Z98.84] HTN (hypertension) [I10] Hyperlipidemia [E78.5] Parkinson's disease (HCC) [G20] COPD (chronic obstructive pulmonary disease) (HCC) [J44.9] Anemia [D64.9] Chronic reflux esophagitis [K21.0] Depression [F32.9] Tremor [R25.1] Lump or mass in breast [N63.0] Cervical cancer (HCC) [C53.9] 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 FALL SCREENING: Has the patient had 2 falls in the last year or 1 fall with injury or currently using an Ambulatory Assistive Device (Walker, Cane, Wheelchair, Crutches, etc.)? No PATIENT GENDER DATA: Female. status: : No status: NO. PATIENT RELEVANT IMPLANT DATA REVIEWED: Not Applicable RADIOLOGY DEPARTMENT: CT; Exam(s) Completed: Upper extremity PERIPHERAL IV DATA: Not applicable SIGNED BY: NILTON Randhawa July 31, 2020 1:49 PM [facility] Ofelia Alvarado MD 07/28/2020 4:32 PM Addendum CONSULT: pulmonary SERVICE SERVICE DATE: 07/28/2020 REASON FOR CONSULT: copd REQUESTING PHYSICIAN: Dr. Raymundo PRIMARY CARE PHYSICIAN: DO Cheryl Martínez Ms. Rabago is a 65 year old female who presents for preoperative evaluation of copd prior to left shoulder surgery. Hx of smoking for 30 years, quit 15 year ago. Has copd, stable on trelegy. Uses albuterol every few weeks. Has stable shortness of breath on exertion such as going up stairs or heavy housework. No cough, no wheezing, no sinus issues. Has not required prednisone frequently. Occasionally has bronchitis in the winter. No cardiac history. Having left shoulder pain. Pt had bariatric surgery over ten years ago and lost 130 lbs since then. Prior to that she used oxygen all the time. No longer uses oxygen. She has since gained some weight back. She is not active and does not eat healthy. FUNCTIONAL STATUS: Independent PAST MEDICAL HISTORY Diagnosis Date - Cervical cancer (HCC) - COPD (chronic obstructive pulmonary disease) (HCC) - Herniated disc - Hypersomnia with sleep apnea, unspecified - Major depressive disorder, single episode, mild (HCC) - Mixed hyperlipidemia - Other and unspecified ovarian cyst Ovarian cyst - Parkinson's disease (HCC) - Unspecified essential hypertension - Vulvar cancer (HCC) PAST SURGICAL HISTORY Procedure Laterality Date - ABDOMINOPLASTY - GASTRIC BYPASS 2006 sleeve - LIGATE FALLOPIAN TUBE - PAST SURGICAL HISTORY OF sinus surgery - PAST SURGICAL HISTORY OF breast reduction - PAST SURGICAL HISTORY OF body lift (arms, belly, thighs) - PAST SURGICAL HISTORY OF back surgery - PAST SURGICAL HISTORY OF left breast biopsy x 3 - PAST SURGICAL HISTORY OF 2018 mass removed from back of foot - REMOVAL GALLBLADDER Cholecystectomy - REMOVAL OF OVARY(S) Oophorectomy - REPAIR ROTATOR CUFF,ACUTE Rotator cuff repair x 4 - SHX TOTAL SHOULDER REVERSE Right - TOTAL ABDOM HYSTERECTOMY - TOTAL KNEE REPLACEMENT Left FAMILY HISTORY Problem Relation Age of Onset - Cancer Father bladder - Diabetes Father - Aneurysm Mother - Coronary Artery Disease Brother Social History Tobacco Use - Smoking status: Former Smoker Packs/day: 1.50 Years: 35.00 Pack years: 52.50 Types: Cigarettes Quit date: 2014 Years since quittin.6 - Smokeless tobacco: Never Used - Tobacco comment: quit 03/31 Substance Use Topics - Alcohol use: Yes Frequency: Monthly or less Drinks per session: 1 or 2 Binge frequency: Never - Drug use: No (Not in a hospital admission) @IPMED@ Allergies As of Date: 07/28/2020 (No Known Allergies) Fully Assessed 07/28/2020 COMPLETE REVIEW OF SYSTEMS: PAIN ASSESSMENT: Negative for pain, history of chronic pain, or current treatment for a chronic pain condition. GENERAL: No weight loss, malaise or fevers HEENT: Negative for frequent or significant headaches, No changes in hearing or vision, no nose bleeds or other nasal problems NECK: Negative for lumps, goiter, pain and significant neck swelling RESPIRATORY: See HPI CARDIOVASCULAR: Negative for chest pain, leg swelling, hypertension, CHF or palpitations GI: No nausea, vomiting, or diarrhea : No history of dysuria, frequency or incontinence MUSCULOSKELETAL: joint pain or swelling SKIN: Negative for lesions, rash, and itching Objective PHYSICAL EXAM: Physical Exam Performed: GENERAL: Alert, no distress, cooperative SKIN: Skin color, texture, turgor normal. No rashes or lesions. HEAD/SINUSES: No significant findings BACK: Back symmetric, Normal curvature, ROM normal, No CVAT. LUNGS: Lungs clear to auscultation, Good diaphragmatic excursion CARDIAC: Normal S1 and S2; no rubs, murmurs, or gallops ABDOMEN: Abdomen soft, non-tender, BS normal, No masses or organomegaly EXTREMITIES: Normal exam of the extremities NEURO: Negative BP 135/85 Pulse 83 Temp (Src) 97.9 (Temporal) Resp 20 Ht 5' 9 (1.75m) Wt 181 lb 4.8 oz (82.2kg) SpO2 95% LMP 07/28/1980 BMI 26.76 kg/(m2). DATA: Diagnostic tests reviewed for today's visit: Most recent labs and imaging results. Impression/Recommendations 1. Copd - clinically sounds well controlled on trelegy. Spirometry today with mild obstruction and cxr shows clear lungs. pts respiratory status is optimized for upcoming shoulder surgery. Encouraged some weight loss, being active and eating healthier. 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 SIGNATURE: Ofelia Alvarado MD PATIENT NAME: Raegan Rabago DATE: July 28, 2020 TIME: 2:53 PM PAGER: [phone] Previous Version [facility] Vital Signs Date Time Vital Sign Value Performing Clinician Facility 09-27-2024 10:53040 Body height 172.7 cm Aurelia French MD Work Phone: [facility] 09-27-2024 10:53-0400 Body mass index (BMI) [Ratio] 31.63 kg/m2 Aurelia French MD Work Phone: [facility] 09-27-2024 10:530400 Body weight 94.35 kg Aurelia French MD Work Phone: [facility] 09-27-2024 10:53-0400 Diastolic blood pressure 74 mm[Hg] Aurelia French MD Work Phone: [facility] 09-27-2024 10:53-0400 Heart rate 78 /min Aurelia French MD Work Phone: [facility] 09-27-2024 10:53-0400 Systolic blood pressure 128 mm[Hg] Aurelia French MD Work Phone: [facility] 06-03-2024 14:32-0400 Body height 175.26 cm [facility] 06-03-2024 14:32-0400 Body mass index (BMI) [Ratio] 30.9 kg/m2 [facility] 06-03-2024 14:32-0400 Body temperature 97.7 [degF] [facility] 06-03-2024 14:32-0400 Body weight 94.91 kg [facility] 06-03-2024 14:32-0400 Heart rate 55 /min [facility] 06-03-2024 14:32-0400 Respiratory rate 18 /min [facility] 06-03-2024 14:32-0400 SaO2% (BldA) [Mass fraction] 94 % [facility] 04-05-2024 11:05-0400 Body height 175.3 cm Shahbaz Amin MD Work Phone: [facility] 04-05-2024 11:05-0400 Body mass index (BMI) [Ratio] 30.26 kg/m2 Shahbaz Amin MD Work Phone: [facility] 04-05-2024 11:05-0400 Body weight 92.99 kg Shahbaz Amin MD Work Phone: [facility] 04-05-2024 11:05-0400 Diastolic blood pressure 82 mm[Hg] Shahbaz Amin MD Work Phone: [facility] 04-05-2024 11:05-0400 Heart rate 95 /min [facility] 04-05-2024 11:05-0400 Systolic blood pressure 121 mm[Hg] Shhabaz Amin [facility] 03-26-2024 11:07-0400 Body height 175.3 cm [facility]lia French [facility] 03-26-2024 11:07-0400 Body mass index (BMI) [Ratio] 29.96 kg/m2 [facility]urelia French MD [facility] 03-26-2024 11:07-0400 Body weight 92.08 kg [facility]urelia French MD [facility] 03-26-2024 11:07-0400 Diastolic blood pressure 83 mm[Hg] [facility]urelia French MD [facility] 03-26-2024 11:07-0400 Heart rate 87 /min [facility]urelia French MD [facility] 03-26-2024 11:07-0400 Systolic blood pressure 121 mm[Hg] [facility]urelia French MD [facility] 06-30-2023 14:30-0400 Body height 175.26 cm Brigitte Mariano Other [employer] Other 06-30-2023 14:30-0400 Body mass index (BMI) [Ratio] 29.59 kg/m2 Brigitte Mariano Other [employer] Other 06-30-2023 14:30-0400 Body temperature 98.2 [degF] Brigitte Mariano Other [employer] Other 06-30-2023 14:30-0400 Body weight 90.9 kg Brigitet Mariano Other [employer] Other 06-30-2023 14:30-0400 Diastolic blood pressure 78 mm[Hg] Brigitte Mariano Other [employer] Other 06-30-2023 14:30-0400 Respiratory rate 18 /min Brigitte Mariano Other [employer] Other 06-30-2023 14:30-0400 SaO2% (BldA) [Mass fraction] 93 % Brigitte Mariano Other [employer] Other 06-30-2023 14:30-0400 Systolic blood pressure 116 mm[Hg] Brigitte Mariano Other [employer] Other 06-05-2023 14:00-0400 Body height 175.26 cm Marcellus Dumas Other [employer] Other 06-05-2023 14:00-0400 Diastolic blood pressure 86 mm[Hg] Marcellus Dumas Other [employer] Other 06-05-2023 14:00-0400 SaO2% (BldA) [Mass fraction] 96 % Marcellus Dumas Other [employer] Other 06-05-2023 14:00-0400 Systolic blood pressure 128 mm[Hg] Marcellus Dumas Other [employer] Other Encounters Encounter Date Encounter Type Care Provider Facility Start: 04-15-2025 End: 04-15-2025 [facility] Start: 03-31-2025 End: 03-31-2025 ambulatory RONALDO KNOX [facility] Start: 02-05-2025 End: 02-05-2025 Telephone encounter Sindhu Muñoz [facility] Comment on above: 04/15/25 GILLIAN GRAY Start: 12-13-2024 End: 12-19-2024 [facility] Comment on above: Parkinson's disease without dyskinesia, with fluctuating manifestations (CMS-HCC) Start: 10-18-2024 End: 10-18-2024 Refill Aurelia French MD Work Phone: [facility] Comment on above: REM sleep behavior d isorder Start: 09-27-2024 End: 09-27-2024 Office outpatient visit 25 minutes Aurelia French MD Work Phone: [facility] Comment on above: Parkinson's disease without dyskinesia, with fluctuating manifestations (CMS-HCC) (Primary Dx); REM sleep behavior disorder Start: 09-27-2024 End: 09-27-2024 ambulatory [facility] Start: 08-01-2024 End: 08-01-2024 ambulatory RONALDO KNOX [facility] Start: 06-15-2024 End: 06-17-2024 ambulatory SHLOMO SEE Not Available Start: 06-07-2024 End: 06-07-2024 ambulatory ROBEL SHANNON [facility] Start: 06-03-2024 End: 06-03-2024 Departed Referred ESME Quevedo Work Phone: [facility] [place] Work Phone: Start: 06-03-2024 End: 06-03-2024 ambulatory Vicky Quevedo [place] Work Phone: Start: 06-03-2024 End: 06-03-2024 Patient encounter procedure [facility] José Manuel Work Phone: Start: 05-28-2024 End: 05-28-2024 ambulatory ROBEL SHANNON Not Available Start: 05-28-2024 End: 05-28-2024 ambulatory SHAHBAZ AMIN [facility] Start: 05-23-2024 End: 05-23-2024 ambulatory [facility] Start: 05-07-2024 End: 05-07-2024 ambulatory [facility] Start: 04-30-2024 End: 05-01-2024 Emergency department patient visit MISSY HOWELL [facility] Start: 04-24-2024 End: 04-24-2024 ambulatory [facility] Start: 04-17-2024 End: 04-17-2024 ambulatory [facility] Start: 04-08-2024 End: 04-10-2024 Refill Meredith Lauren [facility] Comment on above: REM sleep behavior d isorder Start: 04-05-2024 End: 04-05-2024 Office outpatient visit 25 minutes Shahbaz Amin MD Work Phone: [facility] Comment on above: Myelopathy (CMS-HCC) (Primary Dx); Drug toxicity; 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); Current chronic use of systemic steroids; History of cancer of vulva Start: 04-05-2024 End: 04-05-2024 ambulatory [facility] Start: 03-26-2024 End: 03-26-2024 Office outpatient visit 25 minutes Aurelia French MD Work Phone: [facility] Comment on above: Parkinson's disease without dyskinesia, with fluctuating manifestations (CMS-HCC) (Primary Dx); REM sleep behavior disorder; Action tremor Start: 03-26-2024 End: 03-26-2024 [facility] Start: 12-14-2023 Telephone encounter Chelsey Benton [facility] Comment on above: follow up requested Start: 06-30-2023 End: 06-30-2023 Departed Referred LOVE Mariano Work Phone: [facility] [place] Work Phone: Start: 06-30-2023 End: 06-30-2023 ambulatory Brigitte Mariano [facility] Work Phone: Start: 06-30-2023 Office outpatient vi sit 15 minutes Brigitte Mariano [facility] Start: 06-05-2023 End: 06-05-2023 ambulatory Marcellus Dumas Other [facility] Other Start: 06-05-2023 Office outpatient vi sit 25 minutes Marcellus Piter [facility] Start: 03-15-2023 End: 03-16-2023 ambulatory DENNISTUAN CONKLIN . Facility:[facility] Start: 06-02-2022 End: 06-03-[address] JOSEMANUEL CAT Facility:[facility] Start: 04-27-2022 End: 04-28-2022 ambulatory ROBEL SHANNON Facility:[facility] Start: 04-23-2022 End: 04-24-2022 ambulatory RENEE STORY Facility:[facility] Start: 03-30-2022 End: 03-31-2022 ambulatory DENNISTUAN CONKLIN . Facility:[facility] Start: 03-29-2022 End: 03-30-2022 ambulatory DENNISTUAN CONKLIN . Facility: Start: 08-18-2020 End: 08-18-2020 Subsequent hospital visit by physician Roseline Mcnulty Radiology Comment on above: History of left shou lder replacement [Z96.612] Start: 07-31-2020 End: 07-31-[address] Khushboo Work Phone: [facility] Start: 07-31-2020 End: 07-31-2020 Subsequent hospital visit by physician [facility] Khushboo Work Phone: Radiology Comment on above: Rotator cuff arthrop athy of left shoulder [M12.812] Procedures Date Procedure Procedure Detail Performing Clinician Start: 09-27-2024 Adult depression screening assessment Aurelia French MD Work Phone: Start: 04-05-2024 Adult depression screening assessment Shahbaz Amin MD Work Phone: Start: 03-26-2024 Adult depression screening assessment Aurelia French MD Work Phone: Start: 09-25-2023 Adult depression screening assessment Chelsey Uribe Start: 06-30-2023 Piperacillin/tazobactam Brigitte Mariano Other Start: 08-18-2020 Radex shoulder compl ete minimum 2 views Vinny Haro PA-C Work Phone: Start: 07-31-2020 Ct upper extremity w /o contrast material Myra Martinez MD Work Phone: Start: 07-28-2020 Antibody screen Start: 05-18-2017 Colonoscopy Chelsey Jojo H/O: artificial joint History of left shoulder replacement Xr [place] Plan of Treatment Date Care Activity Detail Author Start: 2029 RSV Vaccine (1 - 1-d ose 75+ series) RSV Vaccine (1 - 1-dose 75+ series) [facility] Start: 09-27-2025 Adult BMI Screening Adult BMI Screen ing [facility] Start: 09-27-2025 Depression Screening Depression Scre ening [facility] Start: 04-30-2025 Tobacco Screening Tobacco Screening [facility] Start: 04-15-2025 End: 04-15-2025 Patient encounter procedure [facility] Start: 04-05-2025 Adult BMI Screening Adult BMI Screen ing [facility] Start: 04-05-2025 Depression Screening Depression Scre ening [facility] Start: 04-05-2025 Tobacco Screening Tobacco Screening [facility] Start: 03-26-2025 Adult BMI Screening Adult BMI Screen ing [facility] Start: 03-26-2025 Depression Screening Depression Scre ening [facility] Start: 03-26-2025 Tobacco Screening Tobacco Screening [facility] Start: 09-25-2024 Adult BMI Screening Adult BMI Screen ing [facility] Start: 09-25-2024 Depression Screening Depression Scre ening [facility] Start: 09-25-2024 Tobacco Screening Tobacco Screening [facility] Start: 09-23-2024 End: 09-23-2024 Patient encounter procedure 09/23/2024 11:00 AM EDT Office Visit [facility] [address] [place] [address], [place] [phone] Aurelia French MD [address] [place] [address], [address] [place] [id number] [facility] Start: 08-08-2024 End: 08-08-2024 Patient encounter procedure 08/08/2024 11:00 AM EDT Office Visit [facility] [address] [place] [address], [place] [phone] Shahbaz Amin MD [address] [place] [address], [address] [place] [phone] [facility] Start: 07-28-2024 Covid-19 Vaccine ( season) Covid-19 Vaccine ( season) [facility] Start: 07-28-2024 Influenza vaccination C [facility] Start: 06-03-2024 Bacteria identified in Urine by Culture [facility] Start: 04-17-2024 End: 04-17-2024 Patient encounter procedure 04/17/2024 11:00 AM EDT Appointment [facility] - CT Imaging [address] [place] [address] Shahbaz Amin MD [address] [place] [address], [address] [place] [phone] [facility] - [facility] Imaging Start: 04-05-2024 End: 04-05-2025 CT Abdomen and Pelvis WO contrast CT abdomen and pelvis without contrast Imaging Routine History of cancer of vulva Expected: 04/05/2024, Expires: 04/05/2025 [facility] Comment on above: Expected: 04/05/2024 , Expires: 04/05/2025 Start: 04-05-2024 End: 04-05-2024 Patient encounter procedure 04/05/2024 11:30 AM EDT Office Visit [facility] [address] [place] [id number] Shahbaz Amin MD [address] [place] [address], [address], [address], [address] [place] [address] [facility] Start: 03-26-2024 End: 03-26-2024 Patient encounter procedure [facility] Start: 11-27-2023 Advance Directive Discussion Advance Directive Discussion [facility] Start: 08-05-2023 DIABETES SCREEN DIABETES SCREEN [facility] Start: 08-05-2023 Diabetes Screening Diabetes Screenin g [facility] Start: 07-28-2023 Influenza vaccination [facility] Start: 06-30-2023 Bacteria identified in Urine by Culture Urine Culture [facility] Start: 06-08-2023 Fall Risk Screening Fall Risk Screen ing [facility] Start: 11-27-2022 ADVANCE DIRECTIVE DISCUSSION ADVANCE DIRECTIVE DISCUSSION [facility] Start: 05-18-2022 Screening for malign ant neoplasm of colon Colonoscopy [facility] Start: 2019 BONE DENSITY BONE DENSITY [facility] Start: 2019 Pneumococcal Vaccine : 65+ (2 of 2 - PCV) Pneumococcal Vaccine: 65+ (2 of 2 - PCV) [facility] Start: 2019 Screening for osteoporosis Bone Density Screening [facility] Start: 02-07-2007 PNEUMOCOCCAL: 65+ (2 - PCV) PNEUMOCOCCAL: 65+ (2 - PCV) [facility] Start: 2004 Administration of varicella zoster vaccine Zoster (Shingles) Vaccine (1 of 2) [facility] Start: 2004 SHINGRIX VACCINE (1 of 2) SHINGRIX VACCINE (1 of 2) [facility] Start: 1999 COLOGUARD (FIT-DNA) COLOGUARD (FIT-D NA) [facility] Start: 1999 Colonoscopy COLONOSCOPY [facility] Start: 1999 COLORECTAL CANCER SCREENING COLORECTAL CANCER SCREENING [facility] Start: [address] COLONOGRAPHY [facility] Start: 1999 FECAL OCCULT BLOOD FECAL OCCULT BLOO D [facility] Start: 1999 Lipid panel Lipid Screening [facility] Start: 1999 LIPID SCREEN LIPID SCREEN [facility] Start: 1999 Screening for malign ant neoplasm of colon [facility] Start: 1999 SIGMOIDOSCOPY SIGMOIDOSCOPY [facility] Start: 1994 Mammography MAMMOGRAM [facility] Start: 1994 Screening for malign ant neoplasm of breast Mammogram Screening [facility] Start: 1984 Zoledronic acid therapy ALPHA- 1 ANTITRYPSIN DEFICIENCY SCREENING [facility] Start: 1973 DTaP,Tdap and Td Vaccines (1 - Tdap) DTaP,Tdap and Td Vaccines (1 - Tdap) [facility] Start: 1973 Urine microalbumin profile [facility] Start: 1972 Adult BMI Follow Up Plan Adult BMI Follow Up Plan [facility] Start: 1972 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 Start: 1954 COVID-19 VACCINE (#1) COVID-19 VACCI NE (#1) [facility] Start: 1955 Medicare Annual Well ness Visit Medicare Annual Wellness Visit [facility] End: 04-05-2025 Glucose [Mass/volume] in Serum or Plasma Glucose Lab Routine 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) Current chronic use of systemic steroids weekly for 6 Occurrences starting 04/05/2024 until 04/05/2025 [employer] Phone: Comment on above: weekly for 6 Occurre nces starting 04/05/2024 until 04/05/2025 Immunizations Immunization Date Immunization Notes Care Provider Fa cility 08-13-2022 influenza virus vacc ine, unspecified formulation Chelsey Uribe [facility] 10-30-2011 influenza virus vacc ine, unspecified formulation Roseline Mcnulty [facility] 02-07-2006 pneumococcal polysaccharide vaccine, [address] [employer] Work Phone: [facility] Payers Date Payer Category Payer Self-pay [id number] 2019 Medicare [id number] 1959 Medicare [id number] 1959 Private Health Insurance [id number] 1954 Unknown [id number] 2.16.8 40.1.996789.3.579.2.647 1954 Unknown [id number] 2.16.84 0.1.711563.3.579.2.593 1954 Unknown [id number] 2.16.84 0.1.311103.3.579.2.593 1954 Unknown [id number] 2.16.84 0.1.783543.3.579.2.593 1954 Unknown [id number] 2.16.84 0.1.334999.3.579.2.593 1954 Unknown [id number] 2.16.84 0.1.036568.3.579.2.593 1954 Unknown [id number] 2.16.8 40.1.091667.3.579.2.1286 1954 Unknown [id number] 2.16.8 40.1.726770.3.579.2.1286 1954 Unknown [id number] 2.16.8 40.1.248686.3.579.2.1286 1954 Unknown [id number] 2.16.8 40.1.556866.3.579.2.1286 1954 Unknown [id number] 2.16.8 40.1.455902.3.579.2.128 1954 Unknown [id number] 2.16.8 40.1.633832.3.579.2.1285 1954 Unknown [id number] 2.16.8 40.1.010094.3.579.2.128 1954 Unknown [id number] 2.16.8 40.1.013111.3.579.2.128 1954 Unknown [id number] 2.16.8 40.1.434766.3.579.2.128 1954 Unknown [id number] 2.16.84 0.1.238274.3.579.2.9 1954 Unknown [id number] 2.16.84 0.1.745571.3.579.2.1259 1954 Unknown [id number] 2.16.84 0.1.448125.3.579.2.1259 1954 Unknown [id number] 2.16.8 40.1.521959.3.579.2.1285 1954 Unknown [id number] 2.16.8 40.1.707358.3.579.2.128 1954 Unknown [id number] 2.16.8 40.1.491976.3.579.2.128 1954 Unknown [id number] 2.16. 840.1.247498.3.579.2.1286 Medicare Medicare [id number] Unknown [id number] Unknown [id number] 2.16.8 40.1.675124.3.579.2.531 Unknown [id number] 2.16.8 40.1.321604.3.579.2.531 Social History Date Type Detail Facility Start: 07-28-2020 End: 01-07-2021 Sex Assigned At [facility] Start: 1955 Sex Assigned At Female [facility] Start: 07-28-2020 End: 06-29-2023 Tobacco smoking status NHIS Ex-smoker [facility] Work Phone: Start: 11-27-1969 End: 11-27-2014 History of tobacco use Current smoker [facility] Work Phone: Start: 11-27-1969 End: 11-27-2014 History of tobacco use Cigarette Smoker [facility] Work Phone: Start: 07-28-2020 End: 01-07-2021 Cigarettes smoked current (pack per day) - Reported 1.5 [facility] Start: 07-28-2020 End: 08-04-2020 Tobacco use and exposure Smokeless tobacco non-user [facility] Work Phone: Start: 07-28-2020 End: 09-27-2024 Alcohol intake Current drinker of alcohol (finding) [facility] How often to you hav e a drink containing alcohol? Monthly or less [facility] How many standard drinks containing alcohol do you have on a typical day? 1 or 2 [facility] How often do you hav e 6 or more drinks on 1 occasion? Never [facility] Start: 1955 Sex Assigned At Not on file C [facility] Start: 06-28-2020 End: 08-18-2020 Exposure to SARS-CoV-2 (event) Not sure [facility] How hard is it for y ou to pay for the very basics like food, housing, medical care, and heating Not hard at all [facility] (I/We) worried laith er (my/our) food would run out before (I/we) got money to buy more. Never true [facility] Start: 08-05-2020 Education 21 [facility] Start: 06-29-2023 Tobacco use and exposure Former smokeless tobacco user [facility] History of tobacco use Snuff User [facility] Start: 07-18-2023 Alcohol Comment Socially [facility] Start: 07-02-2015 Sex Female (finding) [facility] Medical Equipment Procedure Code Equipment Code Equipment Origin al Text Equipment Identifier Dates Altivate Djo Rev erse Humeral Stem Small Shell 12mm X 48mm _imp Start: 08-04-2020 Insert Ar Small [id number] Neutral +4 Eplus - [id number] Start: 08-04-2020 Head Rsp 32mm -4 mm Offset Glenoid Retain Screw - [id number] Start: 08-04-2020 Baseplate Rsp P2 30mm Glenoid Sterile - [id number] Start: 08-04-2020 Screw Rsp 5mm 30 mm Bone Lock Glenoid Baseplate Shoulder - [id number] Start: 08-04-2020 Screw Rsp 5mm 26 mm Bone Lock Glenoid Baseplate Shoulder - [id number] Start: 08-04-2020 Screw Rsp 5mm 18 mm Bone Lock Glenoid Baseplate Shoulder - [id number] Start: 08-04-2020 Screw Rsp 5mm 18 mm Bone Lock Glenoid Baseplate Shoulder - [id number] Start: 08-04-2020 Cement Bn Bio 40 gm Rpl [id number] - Sn/A - [id number] ()[id number](1 )[id number](10)[id number]()N/A, [id number] FDA Start: 07-18-2023 Cement Bn Bio 40 gm Rpl [id number] - Sn/A - [id number] ()[id number](1 )[id number]([id number]()N/A, [id number] FDA Start: 07-18-2023 Component Ptlr 3 2mm Persona Alply Kn Strl Lf - Sn/A - [id number] Start: 07-18-2023 Insert Artc 3-4 E-F 10mm Kn Fx Brng Prlng Nxgn Lpsflx Strl Lpsflx Rpl 085534 + [id number] - Sn/A - [id number] ()[id number](1 7)[id number]([id number] (21)N/A, [id number] FDA Start: 07-18-2023 Component Fem E Kn Rt Lpsflx Gndr Ronna? Nxgn Cocr Rpl [id number] - Sn/A - [id number]/A , [id number] FDA Start: 07-18-2023 Plate Tib 66x46m m Nxgn Kn Cmnt Mdlr Stm Prect 4 Tiv Pmma Rpl [id number] + [id number] - Sn/A - [id number] (01)[id number](1 7)[id number](10)[id number] (21)N/A, [id number] FDA Start: 07-18-2023 Goals Date Patient Goal Desired Activity /State Personal health goal Comment on above: Formatting of this n ote might be different from the original. Evaluation of progress towards goal: Home with family support and [facility] Clinical Notes 07-31-2020 to 03-31-2025 Telephone Encounter - Sindhu Muñoz - 02/05/2025 8:36 AM EDTTelephone Encounter - Meredith Stout - 02/05/2025 8:36 AM EDTTelephone Encounter - Sindhu Muñoz - 02/05/2025 8:36 AM EDTPatient Instructions Note Date & Type Note Facility 03-31-2025 Note Department of Psychi atry Outpatient Progress Note Time In: 1:30 pm Time Out: 1:50 pm Present At Visit: Patient Patient Location: Office Patient Present in [place]: Yes CC: Depression HPI: Raegan Rabago is a 70 y.o. female presenting to the [facility] for management of MDD and DAVINA. The patient states that she is Ok and continues to have low energy Adding the Wellbutrin did help but not as much She recently returned from [place] where she said it has not been much different she doesn't have any friends in [place]. She said the wellburtin originially gave her a boost but since then has just sat around much of the day. She has not noticed a difference since stoppping the prozac. She has slept well, although she wakes up early and feels tired in the morning. She does not take naps. She said she just had a sleep study which showed a drop to 84% but has not had a follow up appointment yet. She has had problems walking, needing a cane and her for help. She reported today that her parkinson symptoms are getting worse and she plans to talk to her neurologist about DBS.Also rec.to talk to him about PT for the Parkinsons. 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 Current Problems: Mood: stable somewhat anhedonic Anxiety: No generalized worry Trauma/Abuse: No abuse reported Cognition: No agitation, No paranoia, and No wandering Sleep: No early awakenings, No insomnia, and No multiple awakenings Lifestyle Habits: Attempts healthy eating Medication Compliance: Greater than 90% Recent DAVINA-7/PHQ-9 Scales DAVINA-7 Total Score: 4 Symptom Progress Therapeutic Interventions Provided: Assessed Mood, Assessed Thinking, and Medications Discussed Response to Intervention: Agreeable Overall Assessment of Progress: stable Review of Systems Review of Systems Constitutional: Positive for fatigue. Negative for activity change. Musculoskeletal: Positive for arthralgias. Neurological: Negative for tremors, facial asymmetry and speech difficulty. Psychiatric/Behavioral: Positive for hallucinations. Negative for agitation, behavioral problems, confusion, self-injury, sleep disturbance and suicidal ideas. The patient is not nervous/anxious and is not hyperactive. Mental Status Exam: Level of Alertness: alert Appearance: appears stated age, clean, and well-groomed Eye Contact: normal Build/Stature: normal weight and normal height Posture: good posture Muscle Tone: normal Gait and Ambulation: ambulating with cane Station: able to stand with eyes open and feet close together Attitude Toward Examiner: cooperative and pleasant Behavior: normal Speech: normal Language: expressive normal and receptive normal Mood: euthymic Affect: congruent Thought Process: coherent Thought Content: intact Orientation: oriented to person, oriented to place, and oriented to time Attention and Concentration: able to appropriately shift attention Memory: intact Abstraction: Proverbs: abstract Abstraction: Object Similarities: abstract Estimated Intelligence: average Insight: intact Judgment: social judgment intact and test judgment intact Reliability: reliable Visit Vitals BP 113/75 Pulse 98 Most Recent Labwork No results found for: WBC , HCT , HGB , PLT No results found for: NA , K , CL , BUN , CREATININE , CALCIUM , MG , AST , ALT , PROT , ALBUMIN No results found for: TSH , VITD25 , FOLATE , OBOANGWK96 No results found for: HGBA1C , LDL , HDL , CHOLHDLRATIO , TRIG Assessment: Major depressive disorder Generalized anxiety disorder Parkinson disease Plan: OARRS: No concerns noted Medication Instructions: Increase Wellbutrin XL from 150mg to 300mg daily Continue: Abilify 5mg, Effexor XR 75mg, Trazodone 150mg, Klonopin 0.5mg Labs: None Therapy: None Return to Clinic in February Individualized Service Plan:Treatment Plan Revision Date: 09/04/23 Review Date: 09/04/24 Service Provider: ronaldo knox md Service Frequency: 6+ Weeks Patient's Needs: improve mood Strengths or Assets: cooperative Patient's Stated Goals: improve mood In opioid treatment or medication-assisted treatment?: No Goal (Required): improve mood Required Objective: Patient will achieve/maintain a PHQ-9 score of Moderate (10-14) over the next year. Mood Objective: Patient will report satisfaction with symptoms of depression or mood at each visit over the next 12 months. General Objective: Patient will report adherence to medication recommendations at each visit over the next 12 months. Individualized Service Plan (ISP): Progress Toward ISP Goals/Objectives: [facility] 02-05-2025 Miscellaneous Notes 1st Attempt - Reschedule: Patient's appointment needs to be rescheduled at this time due to provider out of clinic. Left voicemail requesting return call to reschedule. Date: April 15, 2025 Provider: Dr. French Rescheduling Instructions: MOVE PATIENTS TO STONER- 60 MIN Pulmonary Care Nurse received a call from patient about below encounter. Patient is rescheduled with Dr. Stoner on 04/15/25 at 10:30am. Thank you so much [facility] this encounter [facility]-05[facility]2025 Telephone encounter Note 1st Attempt - Reschedule: Patient's appointment needs to be rescheduled at this time due to provider out of clinic. Left voicemail requesting return call to reschedule. Date: April 15, 2025 Provider: Dr. French Rescheduling Instructions: MOVE PATIENTS TO STONER- 60 MIN [facility] 02-05-2025 Telephone encounter Note Pulmonary Care Nurse received a call from patient about below encounter. Patient is rescheduled with Dr. Stoner on 04/15/25 at 10:30am. Thank you so much [facility] 12-13-2024 Miscellaneous Notes Images from the original note were not included. Refill Request: documented in this encounter [facility] 12-13-2024 Telephone encounter Note Images from the original note were not included. Refill Request: [facility] 09-27-2024 History of Presen t illness Narrative Images from the original note were not included. [address] [facility] [address] Patient: Raegan Rabago Date of : 1955 Encounter Date: 09/27/2024 Patient Care Team: Robel Shannon Jr., DO as PCP - General (Internal Medicine) History of Present Illness: The patient is a 69 y.o. female, an established patient, and is here for Parkinson disease. Summary of Condition: Raegan Rabago is a 69 y.o. female here for follow up of Parkinson disease. Today, she reports worsening tremors in her hands and a feeling of internal shaking in her stomach. She says that the shaking in her stomach is uncontrollable and began a couple weeks ago. She has noticed her writing becoming sloppier and smaller. She has also noticed that her gait has become slower, even with her cane. The patient fell 2 months ago, but was able to fall onto her couch and sustained no injuries. She endorses occasional leg twitching at night separate from her restless leg syndrome. She is still able to perform her ADLs, but feels that she will soon need assistance with finances as her memory is decreasing. Additionally, the patient reports increased anxiety. The patient did not notice any improvement in her symptoms with the last adjustment in medication in 03/20. Current PD Regimen - Sinemet 25-100 IR: 1 tab at 6am, 10am, 2pm, and 6 PM. - Sinemet 25-100 CR: 1 tab at 6am, 10am, 2pm, and 6 PM. - Pramipexole 0.5 mg bid - Klonopin 0.5 mg HS Parkinson's disease checklist(09/27/2024): Onset: Summer 2013 Off time and fluctuations: Off time and fluctuations with tremor, bradykinesia, and rigidity Dyskinesias: Denies. Gait: Endorses slower gait even with cane Freezing: None. Falls: One fall 2 months ago onto couch Tremors: worsening tremor in hands Speech: No worsening of speech. Swallowing: No swallowing difficulty. ADLs: Intact regarding toileting, bathing, feeding, dressing, grooming, ambulation, medication. IADLs: Intact regarding using telephone, shopping, food preparation, housekeeping, laundry, finances, transportation. Patient states that she will need help with finances soon as her memory is getting worse. Constipation: Yes, last BM was a couple days ago Sleep: Sleeps well with Klonopin Memory: Describes memory as declining. Depression/Anxiety: Says that her anxiety has increased. Hallucinations: Denies. Lightheadedness/syncope: Denies. Impulsive behavior: Denies impulsive behaviors regarding gambling, shopping, eating and sexual behaviors. Other: Denies. Allergies: No known drug allergies Review of Relevant Patient Questionnaires: HIT 6: No data to display PHQ-9: 09/27/2024 10:53 AM 04/05/2024 11:10 AM 03/26/2024 11:10 AM 09/25/2023 9:57 AM 06/29/2023 12:59 PM 03/28/2023 7:00 AM 10/13/2022 2:59 PM PM AMB PHQ 9 Little interest or pleasure in doing things 0 0 0 0 0 1 0 Feeling down, depressed, or hopeless 0 0 0 0 0 1 0 Trouble falling or staying asleep, or sleeping too much 0 3 0 Feeling tired or having little energy 3 2 0 Poor appetite or overeating 0 2 0 Feeling bad about yourself - or that you are a failure or have let yourself or your family down 0 0 0 Trouble concentrating on things, such as reading the newspaper or watching television 0 0 0 Moving or speaking so slowly that other people could have noticed. Or the opposite - being so fidgety or restless that you have been moving around a lot more than usual 0 0 0 Thoughts that you would be better off , or of hurting yourself in some way 0 0 0 Total Score 0 0 0 3 0 9 0 If you checked off any problems, how difficult have these problems made it for you to do your work, take care of things at home, or get along with other people? Not difficult at all Not difficult at all Not difficult at all PHQ-15: No data to display DAVINA-7: 09/25/2023 9:00 AM 03/28/2023 12:00 PM 06/08/2022 12:00 PM PM AMB DAVINA 7 Feeling nervous, anxious or on edge 0 0 0 Not being able to stop or control worrying 0 0 1 Worrying too much about different things 0 1 1 Trouble relaxing 0 0 0 Being so restless that it is hard to sit still 0 0 0 Becoming easily annoyed or irritable 0 1 1 Feeling afraid as if something awful might happen 0 0 0 DAVINA-7 Total Score 0 2 3 PTSD: No data to display [place]: No data to display REDD-10: No data to display Past Medical, Family, Surgical, and Social History Update: The following portions of the patient's history were reviewed and updated as appropriate: allergies, current medications, past family history, past medical history, past social history, past surgical history and problem list. Past Medical History: Diagnosis Date Allergic rhinitis Anemia Arrhythmia 2013 pvc's, frequent [place] Cervical dysplasia Chronic reflux esophagitis COPD [place]chronic obstructive pulmonary disease[place] Depression Emphyse[place] Heart [place] Hyperlipidemia Hypertension Lump or mass in breast Parkinson's disease [place] Tremor Urinary frequency Visual impairment Vulva cancer [place] 03/27/2012 Family History Problem Relation Age of Onset Breast cancer Neg Hx Past Surgical History: Procedure Laterality Date ABDOMINOPLASTY BACK SURGERY ruptured disc L5 BREAST BIOPSY Left 1998 BENIGN BREAST BIOPSY Right 2014 BENIGN CARDIAC CATHETERIZATION CHOLECYSTECTOMY COLONOSCOPY N/A 05/18/2017 Performed by Will Lester DO at [facility] HYSTERECTOMY 1976 PARTIAL AT AGE 21 JOINT REPLACEMENT Left knee KNEE ARTHROSCOPY OOPHORECTOMY Bilateral MANY YEARS AFTER HYSTERECTOMY REDUCTION MAMMAPLASTY Bilateral 1998 REVISION OF THE REDUCTION IN 2014 REPLACEMENT TOTAL JOINT KNEE Right 07/18/2023 Performed by Kole Colvin Jr., DO at [facility] REVERSE TOTAL SHOULDER ARTHROPLASTY Bilateral SHOULDER ARTHROSCOPY Bilateral x2 each side SINUS SURGERY TOTAL ANKLE ARTHROPLASTY Bilateral TUBAL LIGATION Current Outpatient Medications Medication Sig Dispense Refill albuterol (PROVENTIL HFA;VENTOLIN HFA) 90 mcg/actuation inhaler Inhale 2 puffs every 4 (four) hours as needed. ARIPiprazole (ABILIFY) 5 mg tablet Take 1 tablet (5 mg total) by mouth in the morning. buPROPion XL (WELLBUTRIN XL) 150 mg 24 hr tablet Oral for 30 Days calcium carbonate (CALTRATE 600 ORAL) Take 1,200 mg by mouth. carbidopa-levodopa (SINEMET CR) 25-100 mg per CR tablet Take 1 tablet four times daily (take 4 hours apart). 360 tablet 3 carbidopa-levodopa (SINEMET) 25-100 mg per tablet Take 1 tablet four times daily (take 4 hours apart). 360 tablet 3 clonazePAM (KlonoPIN) 0.5 mg tablet Take 1 tablet (0.5 mg total) by mouth nightly for 360 days. Take 1 tablet 30 minutes before bedtime 90 tablet 3 famotidine (PEPCID) 40 mg tablet Take 1 tablet (40 mg total) by mouth nightly. fluticasone propionate (FLONASE) 50 mcg/actuation nasal spray USE 2 SPRAYS IN EACH NOSTRIL ONCE DAILY DIRECTED montelukast (SINGULAIR) 10 mg tablet Take 1 tablet (10 mg total) by mouth in the morning. MYRBETRIQ 25 mg tablet extended release 24 hr Take 2 tablets (50 mg total) by mouth in the morning. pramipexole (MIRAPEX) 0.5 mg tablet TAKE 2 TABLETS BY MOUTH TWICE DAILY 360 tablet 3 rosuvastatin (CRESTOR) 20 mg tablet Take 1 tablet (20 mg total) by mouth in the morning. spironolactone (ALDACTONE) 50 mg tablet Take 0.5 tablets (25 mg total) by mouth in the morning. 25 mg daily, if after daily weigh in you are 3 pounds heavier take 50 mg . traZODone (DESYREL) 50 mg tablet Take 3 tablets (150 mg total) by mouth nightly. TRELEGY ELLIPTA 200-62.5-25 mcg blister with device INHALE 1 PUFF BY MOUTH EVERY DAY. RINSE AFTER USE venlafaxine XR (EFFEXOR-XR) 37.5 mg 24 hr capsule Take 2 capsules (75 mg total) by mouth in the morning. metoprolol succinate XL (TOPROL XL) 25 mg 24 hr tablet Take 1 tablet (25 mg total) by mouth in the morning. pantoprazole (PROTONIX) 40 mg EC tablet Take 1 tablet (40 mg total) by mouth in the morning for 180 days. 180 tablet 0 No current facility-administered medications for this visit. (All medications reviewed and updated by provider since last office visit or hospitalization) Tobacco History: Social History Tobacco Use Smoking Status Former Smokeless Tobacco Former Types: Snuff (If patient a smoker, smoking cessation counseling offered) Social History: Social History Substance and Sexual Activity Alcohol Use Yes Comment: Socially Review of Systems: Neurological ROS: Review of Systems Constitutional: Negative for activity change, appetite change and unexpected weight change. HENT: Negative for trouble swallowing. Eyes: Negative for visual disturbance. Respiratory: Positive for shortness of breath. Gastrointestinal: Positive for constipation. Endocrine: Negative for cold intolerance and heat intolerance. Genitourinary: Negative for difficulty urinating. Musculoskeletal: Positive for gait problem. Negative for arthralgias. Neurological: Positive for tremors and weakness. Negative for dizziness, syncope and speech difficulty. Psychiatric/Behavioral: Negative for sleep disturbance. The patient is nervous/anxious. Physical Exam: Vitals: Vitals: 09/27/24 1053 BP: 128/74 BP Site: Left Arm BP Postition: Sitting Pulse: 78 Weight: 94.3 kg (208 lb) Height: 172.7 cm (5' 8 ) Neurological Physical Exam: Physical Exam: Mental Status: Orientation: Oriented to person, place and time. Level of consciousness: alert. Knowledge: good. Intact short-term memory and intact long-term memory. Vocabulary is normal. Speech: Normal quality. Language: Normal. Cranial Nerves: CN II: Visual bradley full to confrontation. CN III, IV, : CN III: PERRLA, EOM full, no nystagmus and no ptosis. CN V: Facial sensation intact to pin. CN VII: Facial expression fully symmetric. CN VIII: CN VIII normal. CN IX, X: CN IX and X normal. CN XI: CN XI normal. CN XII: CN XII normal. Motor: Muscle Tone: Normal. Power: Normal strength throughout. Fasciculations: No Gait/Coord/DTR: Abnormal Gait: unsteady and abnormal gait (Rule stride, has to use arms to sit up from stair). Unable to tandem walk. Coordination: Normal. Tremor: Action tremor left arm and right arm. Resting jaw tremor Bradykinesia more pronounced on left upper extremity and lower extremity. Kinetic tremor more pronounced on left upper extremity. Postural tremor more pronounced on right upper extremity. . Involuntary Movements: no abnormal movement. Reflexes: Right biceps 2+ Left biceps 2+ Right patellar 0 Left patellar 0 General Exam: Constitutional: Well-developed, well-nourished . Eyes: Normal appearance, no icterus. Right Ear: Hearing normal. Left Ear: Hearing normal. Neck: Normal appearance. Psychiatric: Normal mood/affect and good eye contact. MDS-UPDRS: @FLOW([id number] 65,[id number] 8,[id number] ,[id number], [id number],2 [id number],21 [id number],210 [id number],2102 90846,[id number],74664 8176,[id number],125615 179,[id number])@ TETRAS: @FLOW([id number],1 5695,24803,52138,61394,10691,15 702,96438,34492,44956,10707,157 18,70973,71224,10791,07036,1572 8,80566,59225,30589,43084,59397 ,67412,90870,98378,96186,18658, 80105,42467,20414,81488,09934,1 5803,54582,54953,52755,31979,15 809,48548,38627,69018,89121,158 15,37729,94331)@ Assessment and Plan: There are no diagnoses linked to this encounter. Problem List None Diagnoses and all orders for this visit: Parkinson's disease without dyskinesia, with fluctuating manifestations ([facility]) REM sleep behavior disorder Action tremor Raegan Rabago is a 69 y.o. female her for follow up of Parkinson disease. She reports worsening tremor in her hands and increased bradykinesia and has had a recent fall. She reports no change in the most recent increase in frequency of her Sinemet. PLAN: - Increase dosage of Sinemet 25-100 IR to 1.5 tabs and change frequency to TID 6 AM, 10 AM, and 2 PM - Continue dosage of Sinemet 25-100 CR at 1 tab and change frequency to TID 6 AM, 10 AM, and 2 PM - Discuss potential increase in venlafaxine with psychiatrist for increase in anxiety. Follow-up: 6 months Lizbeth Castillo, MS3 I, AURELIA FRENCH MD, was physically present with the participating medical student. I personally verified the medical student's documentation in the medical record and performed a physical exam and medical decision making for the patient. I made appropriate changes or clarifications to the note. AURELIA FRENCH MD This note was created with the assistance of a speech recognition program. While intending to generate a timely document that accurately reflects the content of the visit, no guarantee can be provided that every grammatical or spelling mistake has been or will be identified or corrected. Thank you for your understanding. documented in this encounter [facility] 08-01-2024 Note Department of Psychi atry Outpatient Progress Note Time In: 1:00 pm Time Out: 1:20 pm Present At Visit: Patient Patient Location: Office Patient Present in [place]: Yes CC: Depression HPI: Raegan Rabago is a 69 y.o. female presenting to the [facility] for management of MDD and DAVINA. The patient states that she is Ok and continues to have low energy Adding the Wellbutrin did help but not as much She recently returned from [place] where she said it has not been much different she doesn't have any friends in [place]. She said the wellburtin originially gave her a boost but since then has just sat around much of the day. She has not noticed a difference since stoppping the prozac. She has slept well, although she wakes up early and feels tired in the morning. She does not take naps. She said she just had a sleep study which showed a drop to 84% but has not had a follow up appointment yet. She has had problems walking, needing a cane and her for help. In her previous appointment she states that it is about the same as at her prior visit in 03/2023. States that she does not do anything and that she does not enjoy things that she used to enjoy such as making quilts. Her sleep improved after increasing trazodone at last visit and sleeps for 6-9 hours with minimal awakenings. States that she has a general sense of guilt but would not elaborate on this. Continues to have low energy and has trouble concentrating, frequently forgetting what is happening on the television. Her appetite has been very good and she eats three meals per day. Denies suicidal ideation or thoughts that she would be better of . Denies any anxiety at this time. She has been having visual hallucinations for years associated with Parkinson disease including seeing ants walking across her windshield and seeing a lion once. She states that she is not alarmed by this and is aware that they are not real. Believes they have been occurring more frequently due to being on oxycodone for her recent knee replacement. Current Problems: Mood: Sadness, Anhedonia, Concentration problems, and Hopelessness Anxiety: No generalized worry Trauma/Abuse: No abuse reported Cognition: No agitation, No paranoia, and No wandering Sleep: No early awakenings, No insomnia, and No multiple awakenings Lifestyle Habits: Attempts healthy eating Medication Compliance: Greater than 90% Recent DAVINA-7/PHQ-9 Scales DAVINA-7 Total Score: 4 Symptom Progress Therapeutic Interventions Provided: Assessed Mood, Assessed Thinking, and Medications Discussed Response to Intervention: Agreeable Overall Assessment of Progress: stable Review of Systems Review of Systems Constitutional: Positive for fatigue. Negative for activity change. Musculoskeletal: Positive for arthralgias. Neurological: Negative for tremors, facial asymmetry and speech difficulty. Psychiatric/Behavioral: Positive for hallucinations. Negative for agitation, behavioral problems, confusion, self-injury, sleep disturbance and suicidal ideas. The patient is not nervous/anxious and is not hyperactive. Mental Status Exam: Level of Alertness: alert Appearance: appears stated age, clean, and well-groomed Eye Contact: normal Build/Stature: normal weight and normal height Posture: good posture Muscle Tone: normal Gait and Ambulation: ambulating with cane Station: able to stand with eyes open and feet close together Attitude Toward Examiner: cooperative and pleasant Behavior: normal Speech: normal Language: expressive normal and receptive normal Mood: euthymic Affect: congruent Thought Process: coherent Thought Content: intact Orientation: oriented to person, oriented to place, and oriented to time Attention and Concentration: able to appropriately shift attention Memory: intact Abstraction: Proverbs: abstract Abstraction: Object Similarities: abstract Estimated Intelligence: average Insight: intact Judgment: social judgment intact and test judgment intact Reliability: reliable Visit Vitals BP 122/70 Pulse 64 Most Recent Labwork No results found for: WBC , HCT , HGB , PLT No results found for: NA , K , CL , BUN , CREATININE , CALCIUM , MG , AST , ALT , PROT , ALBUMIN No results found for: TSH , VITD25 , FOLATE , [id number] No results found for: HGBA1C , LDL , HDL , CHOLHDLRATIO , TRIG Assessment: Major depressive disorder Generalized anxiety disorder Parkinson disease Plan: OARRS: No concerns noted Medication Instructions: Increase Wellbutrin XL from 150mg to 300mg daily Continue: Abilify 5mg, Effexor XR 75mg, Trazodone 150mg, Klonopin 0.5mg Labs: None Therapy: None Return to Clinic in February Individualized Service Plan:Treatment Plan Revision Date: 09/04/23 Review Date: 09/04/24 Service Provider: ronaldo knox md Service Frequency: 6+ Weeks Patient's Needs: improve mood Strengths (more content not included)... [facility] 04-08-2024 Miscellaneous Notes Medication Refill request: Medication Name and Strength: 1) carbidopa-levodopa (SINEMET CR) 25-100 mg per CR tablet 2) clonazePAM (KlonoPIN) 0.5 mg tablet Current dose & Frequency: 1) Take 1 tablet four times daily (take 4 hours apart) 2) Take 1 tablet (0.5 mg total) by mouth nightly for 360 days. Take 1 tablet 30 minutes before bedtime 30 day or 90 day supply preferred: 90 day Pharmacy Name: [facility] #[id number] [place], [place] Request was made by: Patient-Raegan [phone] Please Advise. Thank you so much When did it start unsure if it started after after 03/26/24 or after 04/05/24 medication change Which medication was recently started dexamethasone which medication is the patient concerned may be causing a side effect dexamethasone/carbidopa-levodop a IR/CR What is the side effect ( example: dizziness, nausea) shaking hand Are they still taking the medication or have they stopped it yes Steroids such as dexamethasone can sometimes worsen symptoms. If they have stopped the dexamethasone, they should look for any improvement in the tremors. If not, we can consider adjusting dose of carbidopa-levodopa. Medication refill request for clonazepam verified from office note dated 04/05/24, pharmacy verified as [facility]. Prescription sent to the provider Dr. French for signature. Last visit: 04/05/24 Last filled: 09/25/23 Quantity: 90 w/ 3 refill Next Visit: 09/23/24 Patient is stating that she is taking dexamethasone once a week. The tremors have become quite bothersome. She would like to have her medication adjusted. We can increase the dose of Sinemet IR 25/100 mg to 1.5 tablets by mouth 4 times a day. documented in this encounter [facility] 04-08-2024 Telephone encounter Note Medication Refill request: Medication Name and Strength: 1) carbidopa-levodopa (SINEMET CR) 25-100 mg per CR tablet 2) clonazePAM (KlonoPIN) 0.5 mg tablet Current dose & Frequency: 1) Take 1 tablet four times daily (take 4 hours apart) 2) Take 1 tablet (0.5 mg total) by mouth nightly for 360 days. Take 1 tablet 30 minutes before bedtime 30 day or 90 day supply preferred: Pharmacy Name: [facility] #[id number] [place], [place] Request was made by: Patient-[facility] [phone] Please Advise. Thank you so much [facility] 04-08-2024 Telephone encounter Note When did it start unsure if it started after after 03/26/24 or after 04/05/24 medication change Which medication was recently started dexamethasone which medication is the patient concerned may be causing a side effect dexamethasone/carbidopa-levodop a IR/CR What is the side effect ( example: dizziness, nausea) shaking hand Are they still taking the medication or have they stopped it yes [facility] 04-08-2024 Telephone encounter Note Steroids such as dexamethasone can sometimes worsen symptoms. If they have stopped the dexamethasone, they should look for any improvement in the tremors. If not, we can consider adjusting dose of carbidopa-levodopa. [facility] 04-08-2024 Telephone encounter Note Medication refill request for clonazepam verified from office note dated 04/05/24, pharmacy verified as [facility]. Prescription sent to the provider Dr. French for signature. Last visit: 04/05/24 Last filled: 09/25/23 Quantity: 90 w/ 3 refill Next Visit: 09/23/24 Patient is stating that she is taking dexamethasone once a week. The tremors have become quite bothersome. She would like to have her medication adjusted. [facility] 04-08-2024 Telephone encounter Note We can increase the dose of Sinemet IR 25/100 mg to 1.5 tablets by mouth 4 times a day. [facility] 04-05-2024 History of Presen t illness Narrative Images from the original note were not included. Date of Service: 04/05/2024 Reason for Clinic Visit: Neuropathy Interval history: Since the last clinic visit. Ms. Rabago developed heart failure. She was not told of the etiology, work up with done by the primary care doctor. Her balance and weakness are worsening. She walks with a cane. EMG/NCS were done by last week. She does have a history of malignancy, cervicla and vulval cancer for which she had a hysterectomy in the 80s. He has not had any recent vulval tests. Her last pap smear was 2 years ago. B12/MMA levels were checked and were normal (09/23/2024). Examination: Mental status: Gives appropriate history and normal speech output, minimal features of Parkinsonism. Deltoid: difficulty resisting due to pain/prior suegery Biceps: 4 bilaterally Triceps: 4/4 Finger abductors: mildly weak bilaterally Hip flexors: 4/4 Knee flexors: 4+ bilaterally Knee extensors: 4+ bilaterally Ankle dorsiflexion: 4+ bilaterally Reflexes: +3 in upper limbs, +3 at right knee, +2 at left, absent at ankles Proprioception: present on extremes of excursion of big toes bilaterally, right worse than left Vibration at MCP joints of lower limbs for 7-8 seconds bilaterally. [facility] neuromuscular panel was negative: Impression: Features of myeloneuropathy, with neuropathy showing primary demyelinating features, with progression in symptoms and worsening on clinical exam. Etiology may be inflammmatory/autoimmune or even paraneoplastic given history of 2 prior malignancies. 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 Lakshmi agreed to start weekly dexamethasone low dose bolus treatment--4 mg once weekly. She should get at least once weekly sugar levels while on this, preferably the day after she takes her dose of dexamethasone. CT abdomen to screen for occult malignancy as paraneoplastic myeloneuropathy is high on differential. documented in this encounter [facility] 03-26-2024 History of Presen t illness Narrative Images from the original note were not included. [address] [facility] [id number] Patient: Raegan Rabago Date of : 1955 Encounter Date: 03/26/2024 Patient Care Team: Robel Shannon Jr., DO as PCP - General (Internal Medicine) History of Present Illness: The patient is a 69 y.o. female, an established patient, and is here for follow-up of idiopathic Parkinson's disease. Today, she presents to clinic independently. She reports that her motor symptoms are well controlled with her current regimen day time. However, she does notice that she has worsening tremor and slowness in evening. She does ambulate with a cane whenever she is out of house but will not use in the house. Since last visit in August 2023, she has had 2 falls relating to tripping over objects. She also reports that she feels that her short-term memory is worsening with difficulty remembering recent events thinking words. There have been no significant changes in function and she continues to be independent with ADLs and most IADLs except for cleaning her house which she received some with. Notably, she is recently being diagnosed with heart failure. Current PD Regimen Sinemet 25-100 IR: 1 tab at 6am, 10am, and 2pm. Sinemet 25-100 CR: 1 tab at 6am, 10am, and 2pm. Pramipexole 0.5 mg bid Klonopin 0.5 mg HS Parkinson's disease checklist (03/26/2024): Onset: Summer 2013. Off time and fluctuations: Reports off time and fluctuations with tremor, Rigidity and bradykinesia. Dyskinesias: Denies. Gait: Unchanged from last visit. Using cane most of the time Freezing: None. Falls: None. Tremors: left hand >right hand. Resting. Worsens with anxiety. Speech: Soft speech; stable. Swallowing: Dysphagia with solids, had a swallow study without need for diet modification. ADLs: Intact regarding toileting, bathing, feeding, dressing, grooming, ambulation, medication. IADLs: Intact regarding using telephone, shopping, food preparation, housekeeping, laundry, finances, transportation. Constipation: Significant symptoms, 1 week between bm, will take dulcolax with benefit Sleep: Great with trazodone and Klonopin. Memory: Describes memory as not worse than other people of similar age. Depression/Anxiety: Still ongoing depression and anxiety, seeing psychiatry and on Abilify, bupropion, and Effexor. Hallucinations: Ants walking across the sun visor in her car every time she is in the passenger seat. She has insight and immediately knows that this is a visual hallucination. Lightheadedness/syncope: Denies. Impulsive behavior: Denies impulsive behaviors regarding gambling, shopping, eating and sexual behaviors. Other: restless leg syndrome stable with pramipexole Treatment History Prior Medications: None Prior PT/ST: None Exercise/ Physical activity: None Allergies: No known drug allergies Review of Relevant Patient Questionnaires: HIT 6: No data to display PHQ-9: 03/26/2024 11:10 AM 09/25/2023 9:57 AM 06/29/2023 12:59 PM 03/28/2023 7:00 AM 10/13/2022 2:59 PM 09/07/2022 12:36 PM 06/08/2022 12:00 PM PM AMB PHQ 9 Little interest or pleasure in doing things 0 0 0 1 0 2 2 Feeling down, depressed, or hopeless 0 0 0 1 0 2 1 Trouble falling or staying asleep, or sleeping too much 0 3 0 3 0 Feeling tired or having little energy 3 2 0 3 2 Poor appetite or overeating 0 2 0 3 0 Feeling bad about yourself - or that you are a failure or have let yourself or your family down 0 0 0 0 0 Trouble concentrating on things, such as reading the newspaper or watching television 0 0 0 0 1 Moving or speaking so slowly that other people could have noticed. Or the opposite - being so fidgety or restless that you have been moving around a lot more than usual 0 0 0 0 0 Thoughts that you would be better off , or of hurting yourself in some way 0 0 0 0 0 Total Score 0 3 0 9 0 13 6 If you checked off any problems, how difficult have these problems made it for you to do your work, take care of things at home, or get along with other people? Not difficult at all Not difficult at all Somewhat difficult PHQ-15: No data to display DAVINA-7: 09/25/2023 9:00 AM 03/28/2023 12:00 PM 06/08/2022 12:00 PM PM AMB DAVINA 7 Feeling nervous, anxious or on edge 0 0 0 Not being able to stop or control worrying 0 0 1 Worrying too much about different things 0 1 1 Trouble relaxing 0 0 0 Being so restless that it is hard to sit still 0 0 0 Becoming easily annoyed or irritable 0 1 1 Feeling afraid as if something awful might happen 0 0 0 DAVINA-7 Total Score 0 2 3 PTSD: No data to display [place]: No data to display REDD-10: No data to display Past Medical, Family, Surgical, and Social History Update: The following portions of the patient's history were reviewed and updated as appropriate: allergies, current medications, past family history, past medical history, past social history, past surgical history and problem list. Past Medical History: Diagnosis Date Allergic rhinitis Anemia Arrhythmia 2012 pvc's, frequent [facility] 02/03/[place] Cervical dysplasia Chronic reflux esophagitis COPD (chronic obstructive pulmonary disease) [place] Depression Emphysema of lung [place] Hyperlipidemia Hypertension Lump or mass in breast Parkinson's disease [place] Tremor Urinary frequency Visual impairment Vulva cancer [place] 03/27/2012 Family History Problem Relation Age of Onset Breast cancer Neg Hx Past Surgical History: Procedure Laterality Date ABDOMINOPLASTY BACK SURGERY ruptured disc L5 BREAST BIOPSY Left 1998 BENIGN BREAST BIOPSY Right 2014 BENIGN CARDIAC CATHETERIZATION CHOLECYSTECTOMY COLONOSCOPY N/A 05/18/2017 Performed by Will Lester DO at [facility] HYSTERECTOMY 1976 PARTIAL AT AGE 21 JOINT REPLACEMENT Left knee KNEE ARTHROSCOPY OOPHORECTOMY Bilateral MANY YEARS AFTER HYSTERECTOMY REDUCTION MAMMAPLASTY Bilateral 1998 REVISION OF THE REDUCTION IN 2014 REPLACEMENT TOTAL JOINT KNEE Right 07/18/2023 Performed by Kole Colvin Jr., DO at [facility] REVERSE TOTAL SHOULDER ARTHROPLASTY Bilateral SHOULDER ARTHROSCOPY Bilateral x2 each side SINUS SURGERY TOTAL ANKLE ARTHROPLASTY Bilateral TUBAL LIGATION Current Outpatient Medications Medication Sig Dispense Refill albuterol (PROVENTIL HFA;VENTOLIN HFA) 90 mcg/actuation inhaler Inhale 2 puffs every 4 (four) hours as needed. ARIPiprazole (ABILIFY) 5 mg tablet Take 1 tablet (5 mg total) by mouth in the morning. buPROPion XL (WELLBUTRIN XL) 150 mg 24 hr tablet Oral for 30 Days calcium carbonate (CALTRATE 600 ORAL) Take 1,200 mg by mouth. clonazePAM (KlonoPIN) 0.5 mg tablet Take 1 tablet (0.5 mg total) by mouth nightly for 360 days. Take 1 tablet 30 minutes before bedtime 90 tablet 3 famotidine (PEPCID) 40 mg tablet Take 1 tablet (40 mg total) by mouth nightly. fluticasone propionate (FLONASE) 50 mcg/actuation nasal spray USE 2 SPRAYS IN EACH NOSTRIL ONCE DAILY DIRECTED metoprolol succinate XL (TOPROL XL) 25 mg 24 hr tablet Take 1 tablet (25 mg total) by mouth in the morning. montelukast (SINGULAIR) 10 mg tablet Take 1 tablet (10 mg total) by mouth in the morning. MYRBETRIQ 25 mg tablet extended release 24 hr Take 2 tablets (50 mg total) by mouth in the morning. pramipexole (MIRAPEX) 0.5 mg tablet TAKE 2 TABLETS BY MOUTH TWICE DAILY 360 tablet 3 rosuvastatin (CRESTOR) 20 mg tablet Take 1 tablet (20 mg total) by mouth in the morning. spironolactone (ALDACTONE) 50 mg tablet TAKE 1 TABLET BY MOUTH EVERY MORNING. HOLD IF BLOOD PRESSURE IS LESS THAN 100 traZODone (DESYREL) 50 mg tablet Take 3 tablets (150 mg total) by mouth nightly. TRELEGY ELLIPTA 200-62.5-25 mcg blister with device INHALE 1 PUFF BY MOUTH EVERY DAY. RINSE AFTER USE venlafaxine XR (EFFEXOR-XR) 37.5 mg 24 hr capsule Take 2 capsules (75 mg total) by mouth in the morning. carbidopa-levodopa (SINEMET CR) 25-100 mg per CR tablet Take 1 tablet four times daily (take 4 hours apart). 360 tablet 3 carbidopa-levodopa (SINEMET) 25-100 mg per tablet Take 1 tablet four times daily (take 4 hours apart). 360 tablet 3 pantoprazole (PROTONIX) 40 mg EC tablet Take 1 tablet (40 mg total) by mouth in the morning for 180 days. 180 tablet 0 No current facility-administered medications for this visit. (All medications reviewed and updated by provider since last office visit or hospitalization) Tobacco History: Social History Tobacco Use Smoking Status Former Smokeless Tobacco Former Types: Snuff (If patient a smoker, smoking cessation counseling offered) Social History: Social History Substance and Sexual Activity Alcohol Use Yes Comment: Socially Review of Systems: Neurological ROS: Review of Systems Constitutional: Negative for appetite change, chills, fatigue, fever and unexpected weight change. HENT: Negative for drooling, hearing loss, rhinorrhea, tinnitus, trouble swallowing and voice change. Eyes: Negative for visual disturbance. Respiratory: Negative for cough and shortness of breath. Cardiovascular: Negative for chest pain, palpitations and leg swelling. Gastrointestinal: Negative for abdominal pain, constipation, diarrhea and nausea. Endocrine: Negative for cold intolerance and heat intolerance. Genitourinary: Negative for frequency. Musculoskeletal: Negative for arthralgias, back pain, myalgias and neck pain. Skin: Negative for rash. Neurological: Negative for dizziness, tremors, syncope, weakness, light-headedness, numbness and headaches. Hematological: Does not bruise/bleed easily. Psychiatric/Behavioral: Negative for behavioral problems, confusion, dysphoric mood, hallucinations and sleep disturbance. The patient is not nervous/anxious. Physical Exam: Vitals: Vitals: 03/26/24 1107 BP: 121/83 BP Site: Left Arm BP Postition: Sitting BP CUFF SIZE: L (13-17 inches) Pulse: 87 Weight: 92.1 kg (203 lb) Height: 175.3 cm (5' 9.02 ) Neurological Physical Exam: Neurological Exam: Mental Status: Pleasant and cooperative. Alert and oriented x4 (person, place, date, and situation). Concentration (adding coins) and memory intact (able to provide history). Fund of knowledge is appropriate. Speech demonstrates no dysarthria or aphasia. Euthymic. MOCA (03/26/24): Ophthalmologic: Sclera clear, no ptosis, fundus exam deferred Cranial Nerves I: Not assessed II: Visual bradley intact B/L III, IV, : EOMI, PERRL, No nystagmus V: Facial sensation equal and intact B/L. Normal jaw opening and closing. VII: Symmetrical face VIII: Hearing intact bilaterally IX, X: Midline palate elevation. Cough and gag reflex not assessed XI: Trapezius elevation/ strength is normal and symmetric XII: Tongue is midline with normal protrusion; no atrophy or fasciculations Motor Function: Normal bulk. Normal muscle tone. No resting tremor appreciated. There is bilateral action tremor with postural, kinetic, and intention components. Bradykinesia present in left upper lower extremity. No dyskinesias. Strength is 5/5 throughout including shoulder aB/aDduction, elbow flexion/extension, finger flexion, hip flexion, knee flexion/ extension, dorsiflexion, and plantar flexion; except for 4/5 in b/l HF Deep Tendon Reflexes: (Right, Left): Brachioradialis 2, 2; patellae 2, 2. No clonus elicited. Sensation: Light touch and temperature intact throughout. Coordination: [id number]-wa-sumf is normal bilaterally. Gait: Must press on the chair armrest to stand. Ambulates with a cane in left hand, mildly reduced arm swing on the right. Decreased stride length and mild en block turning. Assessment and Plan: Diagnoses and all orders for this visit: Parkinson's disease without dyskinesia, with fluctuating manifestations ([facility]) - carbidopa-levodopa (SINEMET CR) 25-100 mg per CR tablet; Take 1 tablet four times daily (take 4 hours apart). - carbidopa-levodopa (SINEMET) 25-100 mg per tablet; Take 1 tablet four times daily (take 4 hours apart). 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 Since we last saw, she had some noticeable wearing off in the evenings due to approximately 7 hours from her last dosed until bedtime. She also endorses some memory difficulties and a [place] was 26/30. On exam, she has no resting tremor but evidence of a bilateral action tremor as well as left-sided bradykinesia and abnormal gait. Plan The action tremor may represent another manifestation of Parkinson's disease versus essential tremor. We will 1st attempt to increase the Sinemet frequency was set for improvement. If no improvement, may consider additional medication for treatment of essential tremor. See patient instructions for remainder of plan. Patient Instructions Increase the frequency of Sinemet as follows: Sinemet 25-100 IR: 1 tab at 6am, 10am, 2pm, and 6pm Sinemet 25-100 CR: 1 tab at 6am, 10am, 2pm, and 6pm We may consider adding another medication for tremor if you do not notice improvement after the adjustment to your Sinemet. Will make a referral to physical therapy for evaluation and help in developing a regimen to help with gait. Continue the pramipexole and Klonopin as prior. They recommend that you take the Dulcolax if you have no bowel movement after 2 days to prevent prolonged periods of constipation. Follow-up: 6 months Tato De La Cruz MD PGY-2 Neurology Resident 03/26/24 12:47 PM AURELIA FRENCH MD This note was created with the assistance of a speech recognition program. While intending to generate a timely document that accurately reflects the content of the visit, no guarantee can be provided that every grammatical or spelling mistake has been or will be identified or corrected. Thank you for your understanding. Attending Attestation: I saw the patient. I performed the critical/castellanos portions of the service. I was directly involved in the management and treatment plan of the patient. I reviewed the resident's note. Additional Notes/Findings: None. documented in this encounter [facility] 03-26-2024 Instructions Tato De La Cruz MD - 03/26/2024 11:00 AM EDT Increase the frequency of Sinemet as follows: Sinemet 25-100 IR: 1 tab at 6am, 10am, 2pm, and 6pm Sinemet 25-100 CR: 1 tab at 6am, 10am, 2pm, and 6pm We may consider adding another medication for tremor if you do not notice improvement after the adjustment to your Sinemet. Will make a referral to physical therapy for evaluation and help in developing a regimen to help with gait. Continue the pramipexole and Klonopin as prior. They recommend that you take the Dulcolax if you have no bowel movement after 2 days to prevent prolonged periods of constipation. documented in this encounter [facility] 12-14-2023 Miscellaneous Notes Patient call to schedule a follow up appointment in March [address] Amin. From last office, there is no follow up directions. 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 She would like to be schedule after her EMG that is scheduled for 03/26/2024. Please advise if patient can be seen in March 2024. Thank you Dr Amin, Patient also sees Dr French for Parkinson's. Did you intend for patient to follow up with you? Yes I would like to see her after her EMG. Contacted patient to schedule follow up with Dr Amin per encounter below. Patient is scheduled to see Dr Amin at our [place] location on 04/05/24 at 11:30a for a 30 minute established patient appointment. documented in this encounter [facility] 12-14-2023 Telephone encounter Note Patient call to schedule a follow up appointment in March [address] Amin. From last office, there is no follow up directions. 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 She would like to be schedule after her EMG that is scheduled for 03/26/2024. Please advise if patient can be seen in March 2024. Thank you [facility] 12-14-[address] Amin, Patient also sees Dr French for Parkinson's. Did you intend for patient to follow up with you? [facility] 12-14-2023 Telephone encounter Note Yes I would like to see her after her EMG. [facility] Work Phone: 12-14-2023 Telephone encounter Note Contacted patient to schedule follow up with Dr Amin per encounter below. Patient is scheduled to see Dr Amin at our [place] location on 04/05/24 at 11:30a for a 30 minute established patient appointment. [facility] 06-30-2023 Evaluation note Encounter Date Diagnosis Assessment Notes Jun, Dysuria (ICD-10 - R30.0) Jun, Urinary tract infection, site not specified (ICD-10 - N39.0) Drink plenty fluids, get plenty of rest. Take the Pyridium and Macrobid as prescribed until gone. Follow-up with your family physician if no improvement in 2 to 3 days Jun, Hematuria, unspecified (ICD-10 - R31.9) [facility] Other 07-10-2023 Evaluation note* Encounter Date Diagnosis Assessment Notes Treatment Notes Treatment Clinical Notes May, Primary osteoarthritis of right knee (ICD-10 - M17.11) 68 year old female here for follow up to discuss chronic pain. She voices continued complaints of right knee pain. She feels Durolane gel injections provided minimal relief. Different treatment options were discussed in detail with the patient, and I recommend she follow up with Dr Colvin for surgical intervention. May, Pain in right knee (ICD-10 - M25.561) Follow up with Dr Colvin for surgical intervention May, Other chronic pain (ICD-10 - G89.29) Patient can consider proceeding genicular nerve block and RFA, however, she is aware this would be out of pocket as this is not covered by her insurance. [facility] Other 05-27-2021 NoteHNO ID: [id number] Author: Myra Martinez MD Service: ? Author Type: Physician Type: Progress Notes Filed: 04/22/2021 2:42 PM Note Text: [facility] NOTE Department of Orthopaedics Myra Martinez M.D. NAME: Raegan Rabago [facility] NO.: [id number] DATE: April 22, 2021 DATE OF SURGERY: August 04, 2020, left reverse total shoulder arthroplasty with biceps tenodesis. Raegan returns for routine followup, now over 6 months out from surgery. She is doing well with Her range of motion and function, but is still having weakness. She does feel this is improving with physical therapy. PHYSICAL EXAMINATION: Physical examination today of the left shoulder shows a well-healed deltopectoral incision. Range of motion testing shows passive external rotation at the side to 60 degrees. Passive forward elevation is to 160 degrees. Active forward elevation is to 160 degrees supine and to 90 degrees upright. Active internal rotation is to the lower thoracic levels. There is 4/5 strength with resisted external rotation at the side and 4/5 strength with resisted Devora maneuver. There is no pain with these resisted maneuvers. The left upper extremity is otherwise grossly neurovascularly intact to testing. RADIOGRAPHIC STUDIES: X-rays of the left shoulder taken in the office today are available for review and show a reverse total shoulder arthroplasty in unchanged alignment in comparison to prior films. ASSESSMENT: Status post left reverse total shoulder arthroplasty with biceps tenodesis. PLAN: Raegan is now over 6 months out from surgery. She has good range of motion on examination today but is still having weakness. She does feel that she is gaining strength and we discussed continued physical therapy. She will also continue with her home exercises. I have given her some additional deltoid strengthening exercises. I will see her back in 3 months time for her 1 year postoperative visit. We will obtain new x-rays at that time. She is agreeable with this plan. If any other questions or concerns arise in the interim, She should not hesitate to call. MYRA MARTINEZ M.D.[facility]05-27-2021 NoteHNO ID: [id number] Author: RT Lui(R) Service: ? Author Type: Soaker Hides Type: Progress Notes Filed: 04/22/2021 12:02 PM Note Text: Radiology Service Progress Note PATIENT NAME: Raegan Rabago DATE OF SERVICE: April 22, 2021 TIME: 12:01 PM PATIENT IDENTITY VERIFICATION COMPLETED USING TWO (2) IDENTIFIERS: Name and Date of confirmed by patient verbally. FALL SCREENING: Has the patient had 2 falls in the last year or 1 fall with injury or currently using an Ambulatory Assistive Device (Walker, Cane, Wheelchair, Crutches, etc.)? No PATIENT GENDER DATA: Female. status: : No status: NO. PATIENT RELEVANT IMPLANT DATA REVIEWED: Not Applicable RADIOLOGY DEPARTMENT: General X-ray: Exam(s) Completed: Upper Extremity X-Ray(s): Shoulder, AP / TRUE AP / AXILLARY / SUPRA OUTLET left PERIPHERAL IV DATA: Not applicable SIGNED BY: RT Lui(R) April 22, 2021 12:01 [facility]09-22-2020 History of Present illness Narrative* Lani Gutiérrez (Tech), Tech - 08/18/2020 12:30 PM EDT Radiology Service Progress Note PATIENT NAME: Raegan aRbago DATE OF SERVICE: August 18, 2020 TIME: 12:36 PM PATIENT IDENTITY VERIFICATION COMPLETED USING TWO (2) IDENTIFIERS: Name and Date of confirmedby patient verbally. FALL SCREENING: Has the patient had 2 falls in the last year or 1 fall with injury or currently using an Ambulatory Assistive Device (Walker, Cane, Wheelchair, Crutches, etc.)? No PATIENT GENDER DATA: Female. status: : No status: NO. PATIENT RELEVANT IMPLANT DATA REVIEWED: Not Applicable RADIOLOGY DEPARTMENT: General X-ray: Exam(s) Completed: Upper Extremity X- Ray(s): Shoulder, AP / TRUE AP / AXILLARY / SUPRA OUTLET left : PERIPHERAL IV DATA: Not applicable SIGNED BY: Nuria Mota August 18, 2020 12:36 PM [facility] Present illness Narrative* Ashwini Benson)NILTON - 07/31/2020 2:00 PM EDT Radiology Service Progress Note PATIENT NAME: Raegan Rabago DATE OF SERVICE: July 31, 2020 TIME: 1:49 PM PATIENT IDENTITY VERIFICATION COMPLETED USING TWO (2) IDENTIFIERS: Name and Date of confirmedby patient verbally. FALL SCREENING: Has the patient had 2 falls in the last year or 1 fall with injury or currently using an Ambulatory Assistive Device (Walker, Cane, Wheelchair, Crutches, etc.)? No PATIENT GENDER DATA: Female. status: : No status: NO. PATIENT RELEVANT IMPLANT DATA REVIEWED: Not Applicable RADIOLOGY DEPARTMENT: CT; Exam(s) Completed: Upper extremity PERIPHERAL IV DATA: Not applicable SIGNED BY: NILTON Randhawa July 31, 2020 1:49 PM [facility] [place] noteNo assessment information availablePremier Health [facility] Work Phone: Evaluation note* Diagnosis Rotator cuff arthropathy of left shoulder Chronic left shoulder pain Pain in joint, shoulder region Pre-op exam Preoperative examination, unspecified documented in this encounter [facility] note* Diagnosis Onset Date Resolution Status Dysuria acute [facility] Work Phone: Evaluation note* Diagnosis Pre-op evaluation- Primary Preoperative examination, unspecified Rotator cuff tear arthropathy, left History of gastric bypass Bariatric surgery status Hypertension, unspecified type Hyperlipidemia, unspecified hyperlipidemia type Parkinson's disease (HCC) Paralysis agitans Chronic obstructive pulmonary disease, unspecified COPD type (HCC) Chronic reflux esophagitis Reflux esophagitis Malignant neoplasm of cervix, unspecified site (HCC) Vulvar dysplasia Other specified noninflammatory disorder of vulva and perineum Depression, unspecified depression type History of left shoulder replacement [facility] Diagnosis Parkinson's disease without dyskinesia, with fluctuating manifestations ([facility]) [facility] Diagnosis Parkinson's disease without dyskinesia, with fluctuating manifestations ([facility])- Primary REM sleep behavior disorder Action tremor Essential and other specified forms of tremor [facility]* Diagnosis Myelopathy ([facility] Primary Unspecified disease of spinal cord Drug toxicity Nonspecific abnormal toxicological findings CIDP (chronic inflammatory demyelinating polyneuropathy) ([facility]) Chronic inflammatory demyelinating polyneuritis Current chronic use of systemic steroids History of cancer of vulva [facility]* Diagnosis REM sleep behavior disorder [facility]* Diagnosis Parkinson's disease without dyskinesia, with fluctuating manifestations ([facility])- Primary REM sleep behavior disorder [facility]* Diagnosis REM sleep behavior disorder [facility] System[facility] general Narrative - Reported* Type Description Date Medical History parkinsons disease Medical History hypercholesterolemia Medical History chronic depression Medical History COPD Surgical History hysterectomy Surgical History cholecystectomy Surgical History back surgery Surgical History total left knee replacement Hospitalization History Pneumonia [facility] Other InstructionsNot on filedocumented in this encounter [facility] filedocumented in this encounter [facility] SystemInstructionsNot on filedocumented in this encounter [facility] SystemInstructionsNot on filedocumented in this encounter [facility] SystemInstructionsNot on filedocumented in this encounter [facility] Summary Purpose Family History No Family History Records Found Relationship Condition Age at Onset Recorded Date/T kiko father Unknown Diabetes mellitus Unknown History of stroke Unknown Hypertension Unknown Malignant neoplasm Unknown mother Unknown Advance Directives No Advanced Directives Records Found Advance Directive Response Recorded Date/ Time Advance Directives No April 09 7:24pm Date Activated Date Inactivated Comments 07/17/2023 8:33 PM 07/19/2023 3:10 PM Date Activated Date Inactivated Comments 07/17/2023 8:33 PM 07/19/2023 3:10 PM Latest Code Status on File Code Status Date Activated Date Inactivated Comments Full Code 07/17/2023 8:33 PM 07/19/2023 3:10 PM Hospital Course Note HNO ID: [id number] Author: Skye napier (Judy Menchaca MD Service: Orthopaedic Surgery Author Type: Resident Type: Discharge Summary Filed: 08/05/2020 6:09 AM Note Text: Attestation signed by Myra Martinez at 08/05/2020 12:53 PM Myra Martinez MD ORTHOPEDIC SURGERY DISCHARGE SUMMARY ADMISSION DATE: 08/04/2020 DISCHARGE DATE: 08/05/2020 Attending Physician: Myra Martinez Reason for Hospitalization: L shoulder glenohumeral arthritis Admitting Diagnosis: L shoulder glenohumeral arthritis Discharge Diagnosis: L shoulder glenohumeral arthritis Additional Diagnoses: ACTIVE PROBLEM LIST Other Plastic Surgery for Unacceptable Cosmetic Appearance Rotator Cuff Tear Arthropathy, Left History of Gastric Bypass Htn (Hypertension) Hyperlipidemia Parkinson's Disease (Hcc) Copd (Chronic Obstructive Pulmonary Disease) (Hcc) Anemia Chronic Reflux Esophag (more content not included)... Note HNO ID: [id number] Author: Fidel Neumann Service: ? Author Type: Anesthesiologist Type: Anesthesia Procedure Notes Filed: 08/04/2020 11:37 AM Note Text: ANESTHESIOLOGY PROCEDURE NOTE Peripheral Nerve Block General Information Procedure Start Time/Medication Administration: 08/04/2020 9:38 AM Procedure End time: 08/04/2020 9:48 AM Patient location during procedure: PACU Timeout Performed Pre-procedure: timeout performed Consent Obtained: Yes Patient identity confirmed: arm band and patient Reason for block: post-op pain management/at surgeon's request Staffing Anesthesiologist: Fabián Neumann SRNA: Lita Sahu (Srna) Performed by: SRNA and anesthesiologist Preparation Sterility Preparation: hand hygiene performed prior to procedure, surgical cap used, mask used, sterile drape used during line insertion, skin prep agent completely dried prior to procedure Site Prep: Chloraprep Pre-Procedure Neuro Exam Location: LUE Sensory: intact Motor: intact Procedure Details Patient Position: (more content not included)... Note HNO ID: [id number] Author: Deniz Epstein Service: ? Author Type: Nurse Editor Type: Anesthesia Procedure Notes Filed: 08/04/2020 11:27 AM Note Text: ANESTHESIOLOGY PROCEDURE NOTE Airway General Information Procedure Start Time/Medication Administration: 08/04/2020 11:04 AM Patient location during procedure: OR Timeout Performed Pre-procedure: timeout performed Consent Obtained: Yes Patient identity confirmed: arm band, care team primary care physician and patient Staffing Anesthesiologist: Fabián Neumann TRUCK PACKER: Alma Epstein Performed by: JUAN Indications and Patient Condition Preoxygenated: yes Patient position: sniffing Manual In-Line Stabilization: Yes Difficult Mask: No Indications for airway management: anesthesia anesthesia circuit Method: asleep Cricoid Pressure: Yes Final Airway Details Final airway type: endotracheal airway Final Endotracheal Airway: ETT Cuffed: yes Successful intubation technique: direct laryngoscopy Endotracheal tube insertion site: oral Blade: Leatha B (more content not included)... Procedure Findings Note HNO ID: [id number] Author: Fidel Neumann Service: ? Author Type: Anesthesiologist Type: Anesthesia Procedure Notes Filed: 08/04/2020 11:37 AM Note Text: ANESTHESIOLOGY PROCEDURE NOTE Peripheral Nerve Block General Information Procedure Start Time/Medication Administration: 08/04/2020 9:38 AM Procedure End time: 08/04/2020 9:48 AM Patient location during procedure: PACU Timeout Performed Pre-procedure: timeout performed Consent Obtained: Yes Patient identity confirmed: arm band and patient Reason for block: post-op pain management/at surgeon's request Staffing Anesthesiologist: Fabián Neumann SRNA: Lita Sahu (Srna) Performed by: SRNA and anesthesiologist Preparation Sterility Preparation: hand hygiene performed prior to procedure, surgical cap used, mask used, sterile drape used during line insertion, skin prep agent completely dried prior to procedure Site Prep: Chloraprep Pre-Procedure Neuro Exam Location: LUE Sensory: intact Motor: intact Procedure Details Patient Position: (more content not included)... Note HNO ID: [id number] Author: Deniz Epstein Service: ? Author Type: Nurse Editor Type: Anesthesia Procedure Notes Filed: 08/04/2020 11:27 AM Note Text: ANESTHESIOLOGY PROCEDURE NOTE Airway General Information Procedure Start Time/Medication Administration: 08/04/2020 11:04 AM Patient location during procedure: OR Timeout Performed Pre-procedure: timeout performed Consent Obtained: Yes Patient identity confirmed: arm band, care team primary care physician and patient Staffing Anesthesiologist: Fabián Neumann TRUCK PACKER: Alma Epstein Performed by: JUAN Indications and Patient Condition Preoxygenated: yes Patient position: sniffing Manual In-Line Stabilization: Yes Difficult Mask: No Indications for airway management: anesthesia anesthesia circuit Method: asleep Cricoid Pressure: Yes Final Airway Details Final airway type: endotracheal airway Final Endotracheal Airway: ETT Cuffed: yes Successful intubation technique: direct laryngoscopy Endotracheal tube insertion site: oral Blade: Leatha B (more content not included)... Chief Complaint and Reason for Visit Chief Complaint Dysuria Chief Complaint Poss UTI Chief Complaint Poss UTI Dysuria Reason for Visit Dysuria Reason for Referral Specialty Diagnoses / Procedures Referred By Contjillian t Referred To Contact Radiology Diagnoses History of cancer of vulva Procedures CT abdomen and pelvis without contrast Shahbaz Amin MD [address], [address], [address], [address] [place] [address] [facility] [address] [place] [address] Phone: [phone] Referral ID Status Reason Start Date Expiration Date V isits Requested Visits Authorized [id number] Authorized 04/05/2024 04/05/2025 1 1 Specialty Diagnoses / Procedures Referred By Contjillian roland Referred To Contact Rehabilitation Diagnoses Parkinson's disease without dyskinesia, with fluctuating manifestations (CMS-HCC) Tato De La Cruz MD [address] [facility], [address] [place] [address] [facility] [address] [place] [address] Referral ID Status Reason Start Date Expiration Date Visits Requested Visits Authorized [id number] Pending Review Specialty Services Required 03/26/2024 03/27/2025 12 12 Additional Source Comments INFORMATION SOURCE (unrecogn ized section and content) DATE CREATED AUTHOR 07/28/2020 [facility] DATE CREATED AUTHOR AUTHOR'S ORGANIZ ATION 08/07/2020 [facility] DATE CREATED AUTHOR AUTHOR'S ORGANIZ ATION 01/20/2022 [facility] DATE CREATED AUTHOR AUTHOR'S ORGANIZ ATION 05/12/2022 [facility] DATE CREATED AUTHOR AUTHOR'S ORGANIZ ATION 03/20/2023 [facility] DATE CREATED AUTHOR AUTHOR'S ORGANIZ ATION 06/11/2024 [facility] DATE CREATED AUTHOR AUTHOR'S ORGANIZ ATION 06/13/2024 [facility] DATE CREATED AUTHOR AUTHOR'S ORGANIZ ATION 06/18/2024 [facility] DATE CREATED AUTHOR AUTHOR'S ORGANIZ ATION 09/29/2024 [facility] DATE CREATED AUTHOR AUTHOR'S ORGANIZ ATION 04/03/2025 [facility] DATE CREATED AUTHOR AUTHOR'S ORGANIZ ATION 04/16/2025 [facility] REASON FOR VISIT (unrecogniz ed section and content) Reason Comments Radiology CT Reason Comments Radio Gen RMP Reason Onset Date Comments Med Refill 12/13/2024 Reason Comments Idiopathic progressive neuropathy Reason Onset Date Comments follow up requested 12/14/2023 Reason Onset Date Comments Med Refill 04/08/2024 Reason Comments Med Refill Reason Onset Date Comments 04/15/25 [facility] RESCHEDULE 02/05/2025 Care Teams (unrecognized sec tion and content) Team Status: Inactive Member Role Status Dates CAM DelarosaC Attending Provider Active Human Resources Safety Manager Relationship Specialty Start Date End Date Devin Raymundo [address] [place] [address] PCP - General Family Medicine 04/26/11 Team Status: Active Member Role Status Dates Robel Shannon JR DO Primary Care Provider Active Team Status: Inactive Member Role Status Dates Robel Shannon JR DO Primary Care Provider Active Start: June 03, 2024 End: June 03, 2024 Vicky Quevedo APRN Attending Provider Active S tart: June 03, 2024 End: June 03, 2024 Team Status: Inactive Member Role Status Dates Vicky Quevedo APRN Attending Provider Active S tart: June 03, 2024 End: June 03, 2024 Human Resources Safety Manager Relationship Specialty Start Date End Date Devin Raymundo [address] [employer] [facility] [place] [id number] PCP - General Family Medicine 04/26/11 Human Resources Safety Manager Relationship Specialty Start Date End Date Robel Shannon Jr., [address] [place] [id number] PCP - General Internal Medicine 07/09/18 Human Resources Safety Manager Relationship Specialty Start Date End Date Robel Shannon Jr., DO [address] [place] [id number] PCP - General Internal Medicine 07/09/18 Human Resources Safety Manager Relationship Specialty Start Date End Date Robel Shannon Jerry Plascencia, DO [address] [place] [id number] PCP - General Internal Medicine 07/09/18 Human Resources Safety Manager Relationship Specialty Start Date End Date Robel Shannon Jerry Plascencia, DO [address] [place] [id number] PCP - General Internal Medicine 07/09/18 Human Resources Safety Manager Relationship Specialty Start Date End Date Shiva Robel Edwards Jr., DO [address] [place] [id number] PCP - General Internal Medicine 07/09/18 Human Resources Safety Manager Relationship Specialty Start Date End Date Robel Shannon Jerry Plascencia, DO [address] [place] [id number] PCP - General Internal Medicine 07/09/18 Human Resources Safety Manager Relationship Specialty Start Date End Date Robel Shannon Jerry Plascencia, DO [address] [place] [id number] PCP - General Internal Medicine 07/09/18 Human Resources Safety Manager Relationship Specialty Start Date End Date Robel Shannon Jerry Plascencia, DO [address] [place] [id number] PCP - General Internal Medicine 07/09/18 Goals (unrecognized section and content) Goals may be documented in a n alternate section Source Comments (unrecognize d section and content) In the event this informatio n is protected by the Federal Confidentiality of Alcohol and Drug Abuse Patient Records regulations: The Federal rules restrict any use of the information to criminally investigate or prosecute any alcohol or drug abuse patient.[facility] the event this information is protected by the Federal Confidentiality of Alcohol and Drug Abuse Patient Records regulations: The Federal rules restrict any use of the information to criminally investigate or prosecute any alcohol or drug abuse patient.[facility] FOR RECORDS PERTAINING TO PATIENTS WHO ARE OR HAVE BEEN ENROLLED IN A CHEMICAL DEPENDENCY/SUBSTANCEABUSE PROGRAM, SOME INFORMATION MAY BE OMITTED. This clinical summary was aggregated from multiple sources. Caution should be exercised in using it in the provision of clinical care. This summary normalizes information from multiple sources, and as a consequence, information in this document may materially change the coding, format and clinical context of patient data. In addition, data may be omitted in some cases. CLINICAL DECISIONS SHOULD BE BASED ON THE PRIMARY CLINICAL RECORDS. [facility] [employer] [facility]. provides no warranty or guarantee of the accuracy or completeness of information in this document.
== END 2025-04-24 09:40 | disposition home or self-care (01) ==
LOC: LAB 09:40
PROVIDERS: Visit Provider Internal Medicine
DX: J15.211 Pneumonia due to Methicillin susceptible Staphylococcus aureus (principal)
CPT/HCPCS: 87070; 87102; 87205; 87206

== ENCOUNTER 2025-05-01 11:48 | Outpatient (OUT) | payer MEDICARE, SELFPAY ==
[2025-05-01 12:32] LABS: Basophils Percent Auto 0.3 % (0.2-2.0); Eosinophils Absolute Auto 0.1 10^3/uL (0.0-0.7); Hemoglobin 12.7 g/dL (12.0-16.0); Immature Granulocytes Abs Auto 0.03 10^3/uL (0.00-0.03); Immature Granulocytes Pct Auto 0.4 % (0.0-0.5); Lymphocytes Absolute Auto 1.4 10^3/uL (1.2-3.8); Lymphocytes Percent Auto 20.3 % (20.5-60.0); Mean Corpuscular HGB Conc 32.6 g/dL (29.9-35.2); Mean Corpuscular Hemoglobin 31.3 pg (26.7-34.0); Mean Corpuscular Volume 96.1 fL (81.0-99.0); Mean Platelet Volume 9.8 fL (9.5-13.5); Monocytes Absolute Auto 0.5 10^3/uL (0.3-0.8); Monocytes Percent Auto 7.6 % (1.7-12.0); Neutrophils Absolute Auto 4.9 10^3/uL (1.4-6.5); Neutrophils Percent Auto 70.4 % (43.0-75.0); Platelet Count 220 10^3/uL (150-450); Red Blood Count 4.06 10^6/uL (4.20-5.40); Red Cell Distribution Width 13.8 % (11.0-15.0); White Blood Count 6.9 10^3/uL (4.0-11.0)
[2025-05-02 16:09] LABS: IgG, Subclass 1 354 mg/dL (248-810); IgG, Subclass 2 96 mg/dL (130-555); IgG, Subclass 3 13 mg/dL (15-102); IgG, Subclass 4 10 mg/dL (2-96); Immunoglobulin G, Qn, Serum 607 mg/dL (586-1602)
[2025-05-05 14:08] LABS: Immunoglobulin A, Qn, Serum 152 mg/dL (64-422); Immunoglobulin E, Total 10 IU/mL (6-495); Immunoglobulin G, Qn, Serum 582 mg/dL (586-1602); Immunoglobulin M, Qn, Serum 60 mg/dL (26-217)
== END 2025-05-01 11:49 | disposition home or self-care (01) ==
LOC: LAB 11:59
PROVIDERS: Visit Provider Internal Medicine
DX: J98.8 Other specified respiratory disorders (principal)
CPT/HCPCS: 36415; 82784; 82785; 82787; 83520; 85025; 86161; 86581

== ENCOUNTER 2025-07-31 09:44 | Outpatient (OUT) | payer MEDICARE, SELFPAY ==
--- OUTSIDE RECORDS SUMMARY | 2025-07-31 09:51 | XMS_ITS | CCD ---
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 Name Role Phone ROBEL SHANNON Primary Care Unavailable SELF, REFERRED Referring Unavailable ELTAHAWY, EHAB A Admitting Unavailable ELTAHAWY, EHAB A Attending Unavailable SAMSA ., DENNIS Admitting Unavailable SAMSA ., DENNIS Attending Unavailable SAMSA ., DENNIS Consulting Unavailable SAMSA ., DENNIS Admitting Unavailable SAMSA ., DENNIS Attending Unavailable SHIVA, DR ANDERSON Primary Care Unavailable ZIEBGWEN, DR SANGEETHA Abebe Consulting Unavailable SAMSA ., DENNIS Consulting Unavailable NIVIA, DR DE LA FUENTE Admitting Unavailable ELTAHAWMilton, DR DE LA FUENTE Attending Unavailable SHIVA, DR ANDERSON Primary Care Unavailable ELTAHAWMilton, DR DE LA FUENTE Consulting Unavailable RENEE STORY Admitting Unavailable RENEE STORY Attending Unavailable SHIVA, DR ANDERSON Primary Care Unavailable RENEE STORY Consulting Unavailable SAMSA ., DENNIS Admitting Unavailable SAMSA ., DENNIS Attending Unavailable BASSAM, DR ALMA Hernández Consulting Unavailable SAMSA ., DENNIS Consulting Unavailable Marcellus Dumas Unavailable Brigitte Mariano Unavailable LOVE Mariano Attending Provider Devin Raymundo Primary Care Provider [phone] ESME Quevedo Attending Provider Vicky Quevedo Attending Unavailable Vicky Quevedo Admitting Unavailable Brigitte Mariano Admitting Unavailable Brigitte Mariano Attending Unavailable Devin Raymundo Primary Care Provider AURELIA FRENCH Attending Unavailable ROBEL SHANNON JR Referring Unavailable ROBEL SHANNON JR Primary Care Unavailable SHAHBAZ AMIN Attending Unavailable ROBEL SHANNON JR Referring Unavailable ROBEL SHANNON JR Primary Care Unavailable AURELIA FRENCH Attending Unavailable ROBEL SHANNON JR Referring Unavailable ROBEL SHANNON JR Primary Care Unavailable Shiva Plascencia DO, Charles L Primary Care Provider RONALDO KNOX Attending Unavailable RONALDO KNOX Attending Unavailable OTF STONER Attending Unavailable ROBEL SHANNON JR Referring Unavailable JRROBEL JOHN JR Primary Care Unavailable ELOISA, SABEENA WHITESIDE Referring Unavailable VALDORA GARRISON, ROBEL Edwards Primary Care Unavailable ELOISA, SABEENA WHITESIDE Referring Unavailable JRONE , ROBEL Jerry Primary Care Unavailable ELOISA, SABEENA WHITESIDE Referring Unavailable JRROBEL JOHN JR Primary Care Unavailable JRROBEL JOHN JR Referring Unavailable JRDORA GARRISON, ROBEL Edwards Primary Care Unavailable JRDORA GARRISON, ROBEL Edwards Primary Care Unavailable JEF ABRAMS Attending Unavailable Robel Shannon MD Primary Care Provider [phone] MONO CHAU Attending Unavailable Medications Current Medications Medication Drug Class(es) Dates Sig (Normalized) Sig (Original) [id number] 200 actuat albuterol 0.09 mg/actuat metered dose inhaler (20 sources) beta2-Adrenergic Agonist Start: 06-03-2024 Albuterol Sulfate Active INHALATION June 03, 2024 12:00am Start: 02-07-2006 ALBUTEROL 90 M CG/ACTUATION AEROSOL INHALER Use as directed four(4) times daily. 0 02/07/2006 Active albuterol HFA (P roAir HFA) 90 mcg/act inhaler every 4 (four) hours. Active albuterol HFA 90 mcg/act inhaler Inhale 2 puffs in the morning and 2 puffs at noon and 2 puffs in the evening and 2 puffs before bedtime. Active take 2 puff(s) by in halation every four hours as needed albuterol (PROVENTIL HFA;VENTOLIN HFA) 90 mcg/actuation inhaler Inhale 2 puffs every 4 (four) hours as needed. Active ProAir HFA Activ e Comment on above: Use as directed four (4) times daily. amoxicillin 500 mg oral capsule (3 sources) Penicillin-class Antibacterial Start: 023 amoxicillin (Amoxil) 500 MG capsule TAKE 4 CAPSULES ONE HOUR PRIOR TO THE APPOINTMENT 2023 Active 24 hr amphetamine aspartate 2.5 mg / amphetamine sulfate 2.5 mg / dextroamphetamine saccharate 2.5 mg / dextroamphetamine sulfate 2.5 mg extended release oral capsule (3 sources) Central Nervous System Stimulant Start: 023 take 1 capsule by mouth once daily in the morning amphetamine-dextroa mphetamine XR (Adderall XR) 10 MG 24 hr capsule TAKE 1 CAPSULE BY MOUTH ONCE DAILY IN THE MORNING 05/05/2023 Active ARIPiprazole 5 mg oral tablet (19 sources) Atypical Antipsychotic Start: 024 take 5 mg by mouth once daily [...] hr tablet Oral for 30 Days Active calcium carbonate 1500 mg or al tablet (14 sources) calcium carbonat e (Calcium 600) 600 MG tablet Take 1,200 mg by mouth. Active calcium [...] 270 tablet 3 09/25/2023 03/26/2024 Discontinued Start: 10-04-2022 take 1 tablet by shoaib th in the morning, then take 1 tablet by mouth in the evening, then take 1 tablet by mouth at bedtime carbidopa-levodopa (Parcopa) 25-250 MG disintegrating tablet Take 1 tablet by mouth in the morning and 1 tablet in the evening and 1 tablet before bedtime. 10/04/2022 Active Start: 09-11-2019 End: 03-26-2024 take 1 tablet [...] oral capsule (1 source) Cephalosporin Antibacterial Start: 07-16-20 take 1 capsule by mouth every twelve hours clonazePAM 0.5 mg oral tablet (18 sources) Benzodiazepine Start: 01-12-20 End: 04-05-20 take 1 tablet by mouth at bedtime clonazePAM (KlonoPIN) 0.5 MG tablet Take 0.5 mg by mouth at bedtime. 01/12/2023 Active dexamethasone 4 mg oral tablet (2 sources) Corticosteroid Start: 04-05-20 24 End: 07-04-20 24 take 1 tablet by mouth every week dexAMETHasone (DECADRON) 4 mg tablet Take 1 tablet (4 mg total) by mouth once a week for 90 days. 12 tablet 04/05/2024 07/04/2024 Active famotidine 40 mg oral tablet (16 sources) Histamine-2 Receptor Antagonist Start: 06-06-20 take 1 tablet by mouth once daily famotidine (PEPCID) 40 mg tablet Take 1 tablet (40 mg total) by mouth nightly. 06/06/2022 Active FLUoxetine 40 mg oral capsule (9 sources) Serotonin Reuptake Inhibitor Start: 04-04-20 23 FLUoxetine (PROzac) 40 MG capsule 04/04/2023 Active Start: 03-08-2018 FLUoxetine (MN OZAC) 20 mg capsule Take 2 capsules by mouth. 03/08/2018 Active take 1 tablet by shoaib every twenty-four hours FLUoxetine HCl 20 MG 1 tablet Orally Once a day Active Comment on above: Take 2 capsules by m outh. fluticasone propionate 0.05 mg/actuat metered dose nasal spray (18 sources) Corticosteroid Start: 06-03-2024 Fluticasone Propionate Active INTRANASAL June 03, 2024 12:00am Start: 09-20-2022 fluticasone (F lonase) 50 MCG/ACT nasal spray 1 (one) time each day at the same time. 09/20/2022 Active Start: 09-20-2022 take 2 spray(s) nasa l [...] / vilanterol 0.025 mg/actuat dry powder inhaler (5 sources) Anticholinergic, Corticosteroid, beta2-Adrenergic Agonist Start: 03-13-2019 [...] succinate 25 mg extended release oral tablet (18 sources) beta-Adrenergic [place] Start: 06-03-2024 take 25 mg by mouth once daily Metoprolol Succinate Active 25 MG PO Daily June 03, 2024 12:00am Start: 07-03-2022 take 1 tablet by shoaib th every twenty-four hours in the morning metoprolol succinate XL (Toprol-XL) 25 MG 24 hr tablet Take 25 mg by mouth in the morning. 07/03/2022 Active Start: 02-07-2006 End: 04-22-2021 TOPROL XL 50 MG 24 HR TAB 2x daily 0 02/07/2006 04/22/2021 Discontinued take 1 tablet by shoaib th every twenty-four hours Metoprolol Succinate ER 25 [...] 03, 2024 12:00am take 2 tablets by [facility] every twenty-four hours in the morning MYRBETRIQ 25 mg tablet extended release 24 hr Take 2 tablets (50 mg total) by mouth in the morning. Active montelukast 10 mg oral tablet (16 sources) Leukotriene Receptor Antagonist Start: 06-26-2022 take [...] Comment on above: Take 1 tablet by [facility] once daily. phenazopyridine hydrochloride 200 mg oral tablet (2 sources) Start: 3 take 1 tablet by mouth every eight hours Pyridium 200 MG 1 tablet after meals Orally Three times a day for 2 day(s) Jun, Active pramipexole dihydrochloride 0.5 mg oral tablet (18 sources) Nonergot Dopamine Agonist Start: 4 take 1 mg by mouth twice daily Pramipexole Active 1 MG PO Twice daily June 03, 2024 12:00am Start: 09-11-2019 take 2 tablets by mo uth in the morning pramipexole (Mirapex) 0.5 MG tablet Take 2 tablets by mouth in the morning and 2 tablets before bedtime. 10/12/2022 Active take 1 tablet by shoaib th every twenty-four hours Pramipexole Dihydrochloride 0.5 MG 1 tablet Orally Once a day Active Pramipexole Dihy drochloride ER Active Comment on above: Take 1 mg by mouth t wice daily. rosuvastatin calcium 20 mg oral tablet (18 sources) HMG-CoA Reductase Inhibitor Start: take 20 mg by mouth once daily Rosuvastatin Active 20 MG PO Daily June 03, 2024 12:00am Start: 06-21-2020 rosuvastatin ( CRESTOR) 10 mg tablet At bedtime 06/21/2020 Active Comment on above: At bedtime spironolactone 50 mg oral tablet (9 sources) Aldosterone Antagonist Start: 06-03-20 take 50 mg by mouth once daily Spironolactone Active 50 MG PO Daily June 03, 2024 12:00am Start: 03-13-2024 take 0.5 tablet by m outh in the morning spironolactone (ALDACTONE) 50 mg tablet Take 0.5 tablets (25 mg total) by mouth in the morning. 25 mg daily, if after daily weigh in you are 3 pounds heavier take 50 mg . 03/13/2024 Active Start: 03-13-2024 take 1 tablet by shoaib th once daily in the morning spironolactone (ALDACTONE) 50 mg tablet TAKE 1 TABLET BY MOUTH EVERY MORNING. HOLD IF BLOOD PRESSURE IS LESS THAN 100 03/13/2024 Active torsemide 20 mg oral tablet (2 sources) Loop Diuretic Start: 06-03-2024 take 20 mg by mouth once daily Torsemide Active 20 MG PO Daily June 03, 2024 12:00am traZODone hydrochloride 150 mg oral tablet (18 sources) Serotonin Reuptake Inhibitor Start: 04-04-2023 traZODone (Desyrel) 150 MG tablet 04/04/2023 Active Start: 03-31-2020 take 1 tablet by shoaib th once daily at bedtime traZODone (DESYREL) 50 mg tablet TK 1 T PO QHS 03/31/2020 Active take 3 tablets by mo uth once daily traZODone (DESYREL) 50 mg tablet Take 3 tablets (150 mg total) by mouth nightly. Active Comment on above: TK 1 T PO QHS Trelegy Ellipta (3 sources) Trelegy Ellipta Active TRELEGY ELLIPTA 200-62.5-25 mcg blister with device (8 sources) Start: 07-13-2022 take 1 puff(s) by mouth once daily TRELEGY ELLIPTA 200-62.5-25 mcg blister with device INHALE 1 PUFF BY MOUTH EVERY DAY. RINSE AFTER USE 07/13/2022 Active Start: 07-13-2022 take 1 puff(s) by mo [facility] once daily TRELEGY ELLIPTA 200-62.5-25 mcg blister with device INHALE 1 PUFF BY MOUTH EVERY DAY. RINSE AFTER USE 0 07/13/2022 Active 24 hr venlafaxine 75 mg extended release oral capsule (16 sources) Serotonin and Norepinephrine Reuptake Inhibitor Start: 06-03-2024 take 75 mg by mouth once daily Venlafaxine Active 75 MG PO Daily June 03, 2024 12:00am Start: 04-15-2023 venlafaxine XR (Effexor XR) 75 MG 24 hr capsule 04/15/2023 Active take 2 capsules by m outh every twenty-four hours in the morning venlafaxine XR (EFFEXOR-XR) 37.5 mg 24 hr capsule Take 2 capsules (75 mg total) by mouth in the morning. Active take 1 capsule by [facility] every twenty-four hours Effexor XR 75 MG [...] 05-04-2023 Durolane Apr, 60 mg estrogens, conjugated (custodial) 0.625 mg/ml vaginal cream (2 sources) Estrogen [...] Comment on above: Take 1 capsule by [facility] three times daily. mupirocin 0.02 mg/mg topical [...] disease (4 sources) Atherosclerotic heart disease of [place] coronary artery without angina pectoris; Translations: [ASHD AGDAAGUX CA W/O ANGINA PECTORIS] Onset: 06-02-2022 Chronic [...] Dysuria; Translations: [Hematuria, unspecified] Onset: 06-30-2023 Episodic Immunity disorders (2 sources) Hypogammaglobulinemia ; Translations: [Nonfamilial hypogammaglobulinemia ] 06-30-2025 Chronic Miscellaneous mental health disorders (2 sources) Primary insomnia; Translations: [Primary insomnia] Onset: 08-01-2024 Chronic Mood disorders (20 sources) Depressive disorder; Translations: [Depression] Onset: 03-29-2017 07-28-2020 Chronic Open wounds of extremities (1 source) Laceration without foreign body, left lower leg, initial encounter; Translations: [Laceration without foreign body, left lower leg, initial encounter] Onset: 05-03-2025 Episodic Osteoarthritis (8 sources) Osteoarthritis of right knee joint; Translations: [Unilateral primary osteoarthritis, right knee] Onset: 08-04-2020 Chronic Other connective tissue disease (3 sources) History of total knee arthroplasty; Translations: [Presence of right artificial knee joint] Onset: 07-21-2023 07-21-2023 Chronic Other hereditary and degenerative nervous system conditions (1 source) Intention tremor; Translations: [Other specified forms of tremor] 03-26-2024 Chronic Other injuries and conditions due to external causes (2 sources) Laceration - injury Onset: 05-03-2025 Episodic Other nervous system disorders (3 sources) Chronic [...] [Chronic inflammatory demyelinating polyneuritis] 04-08-2024 Chronic Other nervous system disorders (3 sources) Difficulty walking; Translations: [Difficulty in walking, not elsewhere classified] Onset: 07-21-2023 07-21-2023 Chronic Other non-traumatic joint disorders (1 source) Rotator cuff arthropathy of left shoulder; Translations: [Other specific arthropathies, not elsewhere classified, left shoulder] 07-31-2020 Chronic Other non-traumatic joint disorders (1 source) Chronic pain of left upper limb; Translations: [Pain in left shoulder] 07-31-2020 Episodic Other upper respiratory infections (2 sources) Recurrent sinusitis; Translations: [Chronic sinusitis, unspecified] 06-30-2025 Chronic Parkinson`s disease (13 sources) Parkinson's disease; Translations: [...] [CONTACT W/AND (SUSP) EXPOS COVID-19] Onset: 05-02-2022 Urinary tract infections (2 sources) Urinary tract infection, site not specified Episodic Past or Other Problems Problem Classification [...] 03-29-2017 07-28-2020 Episodic Other aftercare (2 sources) skilled nursing (current) use of systemic steroids; Translations: [skilled nursing (current) use of systemic steroids] Onset: 04-05-2024 Episodic Other aftercare (1 source) Long-term current use of systemic steroid; Translations: [skilled nursing (current) use of systemic steroids] 04-05-2024 Episodic [...] 09-03-2018 07-28-2020 Episodic Other non-traumatic joint disorders (12 sources) Pain in right knee; Translations: [Pain [...] Range Facility Office Visiton 03-31-2025 Follow-up visit [id number] Raegan Rabago 1955 Date Provider Department Center 03/31/2025 404-RAVIKKI RONALDO [facility] No family history on file Level of Service:93743 [place] OFFICE/OUTPATIENT ESTABLISHED LOW MDM 20 MIN Reason for Visit and Comments: Med Management [[id number]] Normal [facility] 03-24-2025 Refill [id number] Raegan Rabago 1955 Provider Department Center 03/24/2025 404-RONALDO KNOX [facility] No family history on file Reason for Visit and Comments: Med Refill [[id number]] Normal [facility] 03-22-2025 Refill [id number] Raegan Rabago 1955 Date Provider Department Center 03/22/2025 404-RAVIKKI RONALDO [facility] No family history on file Reason for Visit and Comments: Med Refill [[id number]] Normal [facility] 03-02-2025 Refill [id number] Raegan Rabago 1955 Date Provider Department Center 03/02/2025 404RONALDO SARAH [facility] No family history on file Reason for Visit and Comments: Med Refill [[id number]] Normal [facility] 11-14-2024 Refill [id number] Raegan Rabago 1955 F Date Provider Department Center 11/14/2024 404RONALDO SARAH [facility] No family history on file Reason for Visit and Comments: Med Refill [[id number]] [facility] Office Visiton 08-01-2024 Follow-up visit [id number] Raegan Rabago 1955 F Provider Department Center 08/01/2024 404RONALDO SARAH [facility] No family history on file Level of Service:64763 [place] OFFICE/OUTPATIENT ESTABLISHED MOD MDM 30 MIN Reason for Visit and Comments: Psychiatric Evaluation [[id number]] Normal [facility] 06-17-2024 Refill [id number] Raegan Rabago 1955 F Provider Department Center 06/17/2024 [facility] PT [place] No family history on file Reason for Visit and Comments: Med Refill [[id number]] Normal [facility] MR MRCP WITH MRI ABD WO [...] Olegario Cain DO on 06/11/2024 11:08 AM I, Will Villagomez MD have personally reviewed the image(s) and agree with and/or edited the report Finalized by Will Villagomez MD on 06/11/2024 3:16 PM Normal [facility] Urine Cultureon 06-03-2024 Bacteria identified Cx Nom (U) No Growth 2 Days PERFORMED BY: [place] [address] PATHOLOGIST SUPERVISOR ROUGH END REVA MICHAELS M.D. Normal [facility] Comment on above: Performed By: #### C UU #### [facility] [id number] [facility] GLUCOSEon 05-28-2024 Glucose [Mass/Vol] 111 mg/dL High 65-99 [facility] Comment on above: Performed By: #### 2 345-7 #### [facility] ([id number]) [address], [address] [place] [address] GLUCOSEon 05-23-2024 Glucose [Mass/Vol] 129 mg/dL High 65-99 [facility] Comment on above: Performed By: #### 2 345-7 #### [facility] ([id number]) [address], [address] [place] [address] GLUCOSEon 05-07-2024 Glucose [Mass/Vol] 92 mg/dL Normal 65-[address] [facility] Comment on above: Performed By: #### 2 345-7 #### [facility] ([id number]) [address], [address] [place] [address] 29on 04-26-2024 29 Addended by: DONNA CAMPBELL on: 04/26/2024 09:52 AM Modules accepted: Orders [facility] 04-26-2024 36 Please send with new directions [facility] 36 Pt states you increa sed her bupropion to 2 tablets daily. Please send new prescription with correct directions thank you [facility] 04-24-2024 36 Pt states you increa sed her bupropion to 2 tablets daily. Please send new prescription with correct directions thank you [facility] Refillon 04-24-2024 Refill [id number] Raegan Rabago 1955 F Date Provider Department Center 04/24/2024 404-RONALDO KNOX [facility] No family history on file Reason for Visit and Comments: Med Refill [[id number]] [facility] 04-23-2024 Refill [id number] Raegan Rabago 1955 F Date Provider Department Center 04/23/2024 404-RAMARY ELLEN FLOREZNA [facility] No family history on file Reason for Visit and Comments: Med Refill [[id number]] [facility] Urinalysis - AUTOMATEDon Appearance (U) CLOUDY [employer] Other Bilirubin Ql (U) Negative [employer] Other Color (U) YELLOW [employer] Other Glucose Ql (U) Negative [employer] Other Hemoglobin Ql (U) [employer] Other Ketones Ql (U) Negative [employer] Other Leukocyte esterase Test strip Ql (U) [facility] Other Nitrite Ql (U) Negative [employer] Other pH (U) 5.0 [pH] [employer] Other Protein Ql (U) Negative [employer] Other Specific gravity (U) [Rel density] 1.025 [employer] Other Urobilinogen (U) [Mass/Vol] 0.2 mg/dL [employer] Other Urinalysis - AUTOMATED [employer] Other Urine Cultureon 06-30-2023 Bacteria identified Cx Nom (U) Reason for Exam Dysuria Urine ORGANISM: Escherichia coli (O:ESCCOL) [place] Count 75,000 Aerobic WARD Charge ([id number]) -- SUSCEPTIBILITY - ORGANISM: O:ESCCOL ANTIBIOTIC INTERPRETATION WARD Amikacin S [...] <4 Tigecycline S <2 Tobramycin S <2 Trimethoprim/Sulfametho xazole S <0.5 S = SUSCEPTIBLE I = [...] RESISTANT TO ALL B-LACTAM DRUGS. PERFORMED BY: [place] [address] PATHOLOGIST SUPERVISOR ROUGH [employer] REVA MICHAELS M.D. Normal [facility] Comment on above: Performed By: #### C UU #### [address] Urine Culture 75,000 [employer] Other Urine Culture <16 Susceptible [employer] Other Urine Culture <8/4 Susceptible [employer] Other Urine Culture <8 Susceptible [employer] Other Urine Culture <4 Susceptible [employer] Other Urine Culture <2 Susceptible [employer] Other Urine Culture <1 Susceptible [employer] Other Urine Culture <0.25 Susceptible [employer] Other Urine Culture <0.5 Susceptible [employer] Other Urine Culture <32 Susceptible [employer] Other Urine Culture <0.5/9.[address] [employer] LUNG CANCER SCREENINGon 0 03-16-2023 [...] by: SANGEETHA KEVIN Date: 2023-03-16 14:53 Normal [facility] LIPID PROFILEon 06-02-2022 CHOL-HDL RATIO NORM SEE BELOW Normal [facility] Comment on above: Result Comment: 3.3 - 4.4 LOW RISK 4.4 - 7.1 AVERAGE RISK 7.1 - 11.0 MODERATE RISK >11.0 HIGH RISK Performed By: #### L IPID, LIVER #### [facility] [address] [place] [address] Dr. Jailene Kemp Cholesterol [Mass/Vol] 122 mg/dL Normal <=200 [facility] Comment on above: Performed By: #### L IPID, LIVER #### [facility] [address] [address] [address] Jailene Kemp Cholesterol in HDL [Mass/Vol] 70 mg/dL Critically high 40-60 [facility] Comment on above: Performed By: #### L IPID, LIVER #### [facility] [address] [address] [address] Jailene Kemp Cholesterol in LDL [Mass/Vol] 39.8 mg/dL Normal [facility] Comment on above: Performed By: #### L IPID, LIVER #### [facility] [address] [address] [address] Jailene Kemp Cholesterol.total/ Cholesterol in HDL [Mass ratio] 1.7 {ratio} Normal [facility] Comment on above: Performed By: #### L IPID, LIVER #### [facility] [address] [address] [address] Jailene Kemp HDL NORMAL > or = 60 mg/dl - LO W CARDIOVASCULAR RISK <40 mg/dl - HIGH CARDIOVASCULAR RISK Normal [facility] Comment on above: Performed By: #### L IPID, LIVER #### [facility] [address] [address] [address] Jailene Kemp LDL CALC NORMAL SEE BELOW Normal [facility] Comment on above: Result Comment: <100 mg/dl OPTIMAL 100 - 129 mg/dl NEAR OR ABOVE OPTIMAL 130 - 159 mg/dl BORDERLINE HIGH 160 - 189 mg/dl HIGH >190 mg/dl VERY HIGH Performed By: #### L IPID, LIVER #### [facility] [address] [address] [address] Jailene Kemp Triglyceride [Mass/Vol] 61 mg/dL Normal <=150 [facility] Comment on above: Performed By: #### L IPID, LIVER #### [facility] [address] [place] [address] Dr. Jailene Kemp VLDL CALC 12.2 mg/dL Normal [facility] Comment on above: Performed By: #### L IPID, LIVER #### [facility] [address] [address] [address] Jailene Kemp LIVER PROFILEon 06-02-2022 Albumin [Mass/Vol] 3.7 g/dL Normal 3.4-5.0 [facility] Comment on above: Performed By: #### L IPID, LIVER #### [facility] [address] [place] [address] Dr. Jailene Kemp Albumin/Globulin [Mass ratio] 0.9 {ratio} Normal [facility] Comment on above: Performed By: #### L IPID, LIVER #### [facility] [address] [address] [address] Jailene Kemp ALP [Catalytic activity/Vol] 79 U/L Normal 46-116 [facility] Comment on above: Performed By: #### L IPID, LIVER #### [facility] [address] [place] [address] Dr. Jailene Kemp ALT [Catalytic activity/Vol] 12 U/L Critically low 14-59 [facility] Comment on above: Performed By: #### L IPID, LIVER #### [facility] [address] [place] [address] Dr. Jailene Kemp AST [Catalytic activity/Vol] 17 U/L Normal 15-37 [facility] Comment on above: Performed By: #### L IPID, LIVER #### [facility] [address] [place] [address] Dr. Jaielne Kemp BILI, CONJUGATED 0.1 mg/dL Normal 0.0-0.2 [facility] Comment on above: Performed By: #### L IPID, LIVER #### [facility] [address] [place] [address] Dr. Jailene Kemp Bilirubin [Mass/Vol] 0.4 mg/dL Normal 0.2-1.0 [facility] Comment on above: Performed By: #### L IPID, LIVER #### [facility] [address] [place] [address] Dr. Jailene Kemp Globulin (S) [Mass/Vol] 3.9 g/dL Normal [facility] Comment on above: Performed By: #### L IPID, LIVER #### [facility] [address] [place] [address] Dr. Jailene Kemp Protein [Mass/Vol] 7.6 g/dL Normal 6.4-8.2 [facility] Comment on above: Performed By: #### L IPID, LIVER #### [facility] [address] [place] [address] Dr. Jailene Kemp Cardiovascular Lab Reporton 04-27-2022 Cardiovascular Lab Report [facility] Patient Name: [facility] MR #: [id number] Physician: Josemanuel Cat, Department of M.D. Medicine Service Date: 04/27/2022 Division of Birthdate: 1955 Cardiology Room #: Adult Cardiovascular Services [facility] [address] [place] [address] Cardiovascular Laboratory Report FINAL IMPRESSIONS: 1. Moderate [...] up with Renee Story CNP in the [place] office in the next 1 to 2 months. 6. Follow up with her wire preparation worker and family physician as scheduled. PROCEDURES: Ultrasound-guided access to the right common femoral vein, ultrasound-guided access to the right common femoral artery, limited femoral arterial angiography, right heart catheterization, bilateral selective coronary angiography, placement of a 6-Persian MynxGrip closure device. METHODS: After risks, benefits, and alternatives were explained, written informed consent was obtained. The patient was prepped and draped in the usual sterile fashion over both groins. Using 1% lidocaine solution, local infiltration anesthesia was achieved. Using a modified Seldinger technique, micropuncture kit, access to the right common femoral vein was obtained. A 6-Persian 11 cm sheath was inserted without difficulty. This was repeated over the artery. Angiography via the micropuncture kit was performed. This was upsized to a 6-Persian 11 cm sheath. A Temple catheter was [...] the procedure. All catheters were removed. A 6-Persian MynxGrip closure device was deployed per protocol [...] P (more content not included)... Normal [facility] CBC AUTO DIFFon 04-23-2022 BASO # 0.0 103/ul Normal 0.0-0.1 [facility] Comment on above: Performed By: #### C BC #### [facility] [address] [place] [address] Dr. Jailene Kemp Basophils/100 WBC (Bld) 0.4 % Normal 0.2-2.0 [facility] Comment on above: Performed By: #### C BC #### [facility] [address] [place] [address] Dr. Jailene Kemp EO # 0.1 103/ul Normal 0.0-0.7 [facility] Comment on above: Performed By: #### C BC #### [facility] [address] [place] [address] Dr. Jailene Kemp Eosinophils/100 WBC (Bld) 1.8 % Normal 0.9-7.0 [facility] Comment on above: Performed By: #### C BC #### [facility] [address] [place] [address] Dr. Jailene Kemp Erythrocyte distribution width (RBC) [Ratio] 13.6 % Normal 11.0-15.0 [facility] Comment on above: Performed By: #### C BC #### [facility] [address] [place] [address] Dr. Jailene Kemp Hematocrit (Bld) [Volume fraction] 43.5 % Normal 36.0-48.0 [facility] Comment on above: Performed By: #### C BC #### [facility] [address] [place] [address] Dr. Jailene Kemp Hemoglobin (Bld) [Mass/Vol] 14.2 g/dL Normal 12.0-16.0 [facility] Comment on above: Performed By: #### C BC #### [facility] [address] [place] [address] Dr. Jailene Kemp IG # 0.02 10e3/ul Normal 0.00-0.03 [facility] Comment on above: Performed By: #### C BC #### [facility] [address] [place] [address] Dr. Jailene Kemp IG % 0.3 % Normal 0.0-0.5 [facility] Comment on above: Performed By: #### C BC #### [facility] [address] [place] [address] [address] Jailene Kemp LYMPH # 1.3 103/ul Normal 1.2-3.8 [facility] Comment on above: Performed By: #### C BC #### [facility] [address] [place] [address] [address] Jailene Kemp Lymphocytes/100 WBC (Bld) 17.2 % Critically low 20.5-60.0 [facility] Comment on above: Performed By: #### C BC #### [facility] [address] [place] [address] Dr. Jailene Kemp MANUAL DIFF REQ NO Normal [facility] Comment on above: Performed By: #### C BC #### [facility] [address] [place] [address] Dr. Jailene Kemp MCH (RBC) [Entitic mass] 29.1 pg Normal 26.7-34.0 [facility] Comment on above: Performed By: #### C BC #### [facility] [address] [place] [address] Dr. Jailene Kemp MCHC (RBC) [Mass/Vol] 32.6 g/dL Normal 29.9-35.2 [facility] Comment on above: Performed By: #### C BC #### [facility] [address] [place] [address] Dr. Jailene Kemp MCV (RBC) [Entitic vol] 89.1 fL Normal 81.0-99.0 [facility] Comment on above: Performed By: #### C BC #### [facility] [address] [place] [address] Dr. Jailene Kemp MONO # 0.5 103/ul Normal 0.3-0.8 [facility] Comment on above: Performed By: #### C BC #### [facility] [address] [place] [address] Dr. Jailene Kemp Monocytes/100 WBC (Bld) 6.8 % Normal 1.7-12.0 [facility] Comment on above: Performed By: #### C BC #### [facility] [address] [place] [address] [address] Jailene Kemp NEUT # 5.3 103/ul Normal 1.4-6.5 [facility] Comment on above: Performed By: #### C BC #### [facility] [address] [place] [address] [address] Jailene Kemp Neutrophils/100 WBC (Bld) 73.5 % Normal 43.0-75.0 [facility] Comment on above: Performed By: #### C BC #### [facility] [address] [place] [address] Dr. Jailene Kemp Platelet mean volume (Bld) [Entitic vol] 10.7 fL Normal 9.5-13.5 [facility] Comment on above: Performed By: #### C BC #### [facility] [address] [place] [address] Dr. Jailene Kemp PLT 274 103/ul Normal 150-450 [facility] Comment on above: Performed By: #### C BC #### [facility] [address] [place] [address] Dr. Jailene Kemp RBC 4.88 106/ul Normal 4.20-5.40 [facility] Comment on above: Performed By: #### C BC #### [facility] [address] [place] [address] Dr. Jailene Kemp WBC 7.3 103/ul Normal 4.0-11.0 [facility] Comment on above: Performed By: #### C BC #### [facility] [address] [place] [address] Dr. Jailene Kemp [facility]28 SARS-CoV-2 (COVID-19) RNA YVAN+probe Ql (Unsp spec) Not detected Normal NOT DETECTED [facility] Comment on above: Result Comment: This test is not yet approved or cleared by the [place] FDA. When there are no FDA-approved or cleared tests available, and other criteria are met, FDA can make tests available under an emergency access mechanism called an Emergency Use Authorization (EUA). The EUA for this test is supported by the [employer] Supervisor of Health and Human Service's (HHS's) declaration [...] consistent with SARS-CoV-2. Performed By: #### C VDTBH #### [facility] [address] [place] [address] Dr. Jailene Kemp LIPID PROFILEon 04-23-2022 CHOL-HDL RATIO NORM SEE BELOW Normal [facility] Comment on above: Result Comment: 3.3 - 4.4 LOW RISK 4.4 - 7.1 AVERAGE RISK 7.1 - 11.0 MODERATE RISK >11.0 HIGH RISK Performed By: #### L IPID, BMP #### [facility] [address] [place] [address] Dr. Jailene Kemp Cholesterol [Mass/Vol] 123 mg/dL Normal <=200 [facility] Comment on above: Performed By: #### L IPID, BMP #### [facility] [address] [place] [address] Dr. Jailene Kemp Cholesterol in HDL [Mass/Vol] 72 mg/dL Critically high 40-60 [facility] Comment on above: Performed By: #### L IPID, BMP #### [facility] [address] [place] [address] Dr. Jailene Kemp Cholesterol in LDL [Mass/Vol] 38.8 mg/dL Normal [facility] Comment on above: Performed By: #### L IPID, BMP #### [facility] [address] [place] [address] Dr. Jailene Kemp Cholesterol.total/ Cholesterol in HDL [Mass ratio] 1.7 {ratio} Normal [facility] Comment on above: Performed By: #### L IPID, BMP #### [facility] [address] [place] [address] [address] Jailene Kemp HDL NORMAL > or = 60 mg/dl - LO W CARDIOVASCULAR RISK <40 mg/dl - HIGH CARDIOVASCULAR RISK Normal [facility] Comment on above: Performed By: #### L IPID, BMP #### [facility] [address] [place] [address] [address] Jailene Kemp LDL CALC NORMAL SEE BELOW Normal [facility] Comment on above: Result Comment: <100 mg/dl OPTIMAL 100 - 129 mg/dl NEAR OR ABOVE OPTIMAL 130 - 159 mg/dl BORDERLINE HIGH 160 - 189 mg/dl HIGH >190 mg/dl VERY HIGH Performed By: #### L IPID, BMP #### [facility] [address] [place] [address] Dr. Jailene Kemp Triglyceride [Mass/Vol] 61 mg/dL Normal <=150 [facility] Comment on above: Performed By: #### L IPID, BMP #### [facility] [address] [place] [address] Dr. Jailene Kemp VLDL CALC 12.2 mg/dL Normal [facility] Comment on above: Performed By: #### L IPID, BMP #### [facility] [address] [place] [address] Dr. Jailene Kemp PROF CHEM 8 (BAS METB)on Anion gap [Moles/Vol] 13.8 mmol/L Normal [facility] Comment on above: Performed By: #### L IPID, BMP #### [facility] [address] [place] [address] Dr. Jailene Kemp Calcium [Mass/Vol] 9.5 mg/dL Normal 8.5-10.1 [facility] Comment on above: Performed By: #### L IPID, BMP #### [facility] [address] [place] [address] Dr. Jailene Kemp Chloride [Moles/Vol] 102 mmol/L Normal 98-107 [facility] Comment on above: Performed By: #### L IPID, BMP #### [facility] [address] [place] [address] [address] Jailene Kemp CO2 [Moles/Vol] 24.2 mmol/L Normal 21.0-32.0 [facility] Comment on above: Performed By: #### L IPID, BMP #### [facility] [address] [place] [address] [address] Jailene Kemp Creatinine [Mass/Vol] 0.71 mg/dL Normal 0.55-1.02 [facility] Comment on above: Performed By: #### L IPID, BMP #### [facility] [address] [place] [address] [address] Jailene Kemp EGFR-AF KITTITIAN >60 Normal >=60 [facility] Comment on above: Performed By: #### L IPID, BMP #### [facility] [address] [place] [address] [address] Jailene Kemp EGFR-NON AF KITTITIAN >60 Normal >=60 [facility] Comment on above: Performed By: #### L IPID, BMP #### [facility] [address] [place] [address] [address] Jailene Kemp Glucose [Mass/Vol] 104 mg/dL Normal 74-106 [facility] Comment on above: Performed By: #### L IPID, BMP #### [facility] [address] [place] [address] [address] Jailene Kemp Potassium [Moles/Vol] 4.0 mmol/L Normal 3.5-5.1 [facility] Comment on above: Performed By: #### L IPID, BMP #### [facility] [address] [place] [address] [address] Jailene Kemp Sodium [Moles/Vol] 136 mmol/L Normal 136-145 [facility] Comment on above: Performed By: #### L IPID, BMP #### [facility] [address] [place] [address] [address] Jailene Kemp Urea nitrogen [Mass/Vol] 14.0 mg/dL Normal 7.0-18.0 [facility] Comment on above: Performed By: #### L IPID, BMP #### [facility] [address] [place] [address] [address] Jailene Kemp Urea nitrogen/Creatinin e [Mass ratio] 19.7 mg/mg Normal [facility] Comment on above: Performed By: #### L IPID, BMP #### [facility] [address] [place] [address] [address] Jailene Kemp NM STRESS/REST MULTIon 03-30 NM STRESS/REST MULTI Patient: HIMARAEGAN Lonnie Exam Date: 03/30/2022 : 1955 Gender:F Ordering : DR. DENNIS CONKLIN . Admission #: [id number] Family : Order #: [id number] CLICK HERE TO VIEW EXAM RADIOLOGY REPORT [...] Wilkerson MD on 03/31/2022 at 10:24 Normal [facility] ECHOCARDIO M/2D COMPLETEon 0 03-29-2022 ECHOCARDIO M/2D COMPLETE Patient: RAEGAN RABAGO Exam Date: 03/29/2022 : 1955 Gender:F Ordering : DR. DENNIS CONKLIN . Admission #: [id number] Family : DR ROBEL SHANNON D.O. Order #: [id number] CLICK HERE TO VIEW EXAM ECHOCARDIOGRAM REPORT [...] Elizabeth M.D. on 03/29/2022 at 13:25 [facility] Office Visit (ORHSMN ) RAEGAN RABAGO ([id number]) 1955 F [facility] Date Time Provider Department 04/22/21 1:45 PM MYRA MARTINEZ [facility] During your visit today, we recorded the following information about you: Myra Martinez MD 04/22/2021 2:42 PM Signed [facility] NOTE Department of Orthopaedics Myra Martinez M.D. NAME: Raegan Rabago [facility] NO.: [id number] DATE: April 22, 2021 DATE OF SURGERY: [...] MYRA MARTINEZ M.D. Referring Provider: MYRA MARTINEZ [[id number]] Allergies As of Date: 04/22/2021 (No Known Allergies) Date Reviewed: 04/22/2021 Reviewed by: Swetha Hall - Fully Assessed Reason for Visit: Established Patient [175] Follow Up [171] Limited ROM [Other] xray review [Other] Primary Visit Diagnosis:Status post replacement of left shoulder joint [Z96.612] Order(s):XR SHOULDER GENERAL 3V OR MORE AP/TRUE AP/OTHER LT [5194717] Order #: [id number] FUTURE Prescriptions as of 04/22/2021 Sig: FAMOTIDINE [...] (BONTR (more content not included)... Normal [facility] XR SHLDR >/=3V AP/NICOLAS AP/OTH R [...] other significant abnormality. IMPRESSION: NORMAL POSTOPERATIVE FINDINGS Propulsion Generator Repairer: AR Transcribe Date/Time: Apr 22 2021 12:36P Dictated by : ARAM TOLEDO MD This examination was interpreted and the report reviewed and electronically signed by: ARAM TOLEDO MD on Apr 22 2021 1:05PM EST [id number] Normal [facility] XR Shoulder - left 3 Viewson 08-18-2020 IMPRESSION: Expected postsurgical changes of a reverse total shoulder arthroplasty without complication. Propulsion Generator Repairer: AR Transcribe Date/Time: Aug 18 2020 1:44P Dictated by : KEVEN NYE DO This examination was interpreted and the report reviewed and electronically signed by: GERALDO DENNIS MD on Aug 18 2020 3:42PM EST DIVISION OF RADIOLOGY * * *Final Report* [...] the aortic knob. DIVISION OF RADIOLOGY Provider, [facility] - 08/18/2020 * * *Final Report* * [...] a reverse total shoulder arthroplasty without complication. Propulsion Generator Repairer: AR Transcribe Date/Time: Aug 18 2020 1:44P Dictated by : KEVEN NYE DO This examination was interpreted and the report reviewed and electronically signed by: GERALDO DENNIS MD on Aug 18 2020 3:42PM EST [facility] Radiology Study observation (narrative) [facility] XR Shoulder - left 3 ViewsOr dered By: Ccf Provider on 08-18-2020 [facility] CNCOon 08-07-2020 CNCO Letter Text Normal [facility] Basic Metabolic Panlon 08-05 Anion gap [Moles/Vol] 11 mmol/L Normal 0-15 [facility] Calcium [Mass/Vol] 8.5 mg/dL Normal 8.5-10.2 [facility] Chloride [Moles/Vol] 103 mmol/L Normal 97-105 [facility] CO2 [Moles/Vol] 23 mmol/L Normal 23-32 [facility] Creatinine [Mass/Vol] 0.62 mg/dL Normal 0.58-0.96 [facility] Glucose [Mass/Vol] 126 mg/dL High 74-99 [facility] Potassium [Moles/Vol] 4.5 mmol/L Normal 3.7-5.1 [facility] Sodium [Moles/Vol] 137 mmol/L Normal 136-144 [facility] Urea nitrogen [Mass/Vol] 13 mg/dL Normal 7-21 [facility] CASE MANAGEMon 08-05-2020 CASE MANAGEM HNO ID: [id number] Author: Demetra SánchezRn) SURY Mccracken Service: Case Management Author Type: [...] 08/18/2020 1:00 PM Anne (Rn) SURY Sherman EUCLID MEDIC 09/14/2020 1:00 PM Anne (Rn) SURY Sherman ORTHJOY EUCLIDeniz MEDIC Needs Prior to Discharge: None;Ready for Discharge IMM Follow Up Copy Given: Yes Copy given to:: Patient Method: In Person Discharged to home today with no skilled needs. Post op appointments as noted. SIGNATURE: Demetra Mccracken RN PATIENT NAME: Raegan Rabago DATE: August 05, 2020 TIME: 1:17 PM PAGER/CONTACT #: [phone] [facility] CASE MGT INIT [facility]: [id number] Author: Demetra Karimi) SURY Mccracken Service: Case Management Author Type: Registered Nurse Type: Care Mgt Initial Assessment Filed: 08/05/2020 1:16 PM Note Text: CARE MANAGEMENT: ASSESSMENT AND DISCHARGE PLAN SERVICE DATE: August 05, 2020 SERVICE TIME: 1:15 PM PRIMARY CARE PHYSICIAN: Devin Raymundo DO ADMISSION STATUS: Inpatient Needs Prior to Discharge: None;Ready for Discharge MEDICAL: [facility] MEDICARE ADVANTAGE 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 Last discharge within 30 days: No Advance Directive: Current Advance Directive: None Line Patrolman Attempted to Assist with AD Completion: Yes [...] Completely I feel financially burdened by my [id number] expenses for my prescription medication:: 0 - Disagree Completely Risk Score: 0 Patient is categorized as: Low risk < 2 Are you interested in bedside delivery of your medications? No Is Patient Psychosocially Complex?: No ASSESSMENT AND PLAN: Medical Needs: Medical Needs: None Psychosocial Needs: Psychosocial Needs: None FREEDOM OF CHOICE EXPLAINED: [place] of Choice Given: No Reason Not Given: No placements necessary POTENTIAL TRANSITION PLANS Home 65 y.o. female admitted s/p LTSA. 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 Anticipate DC today with no skilled needs. SIGNATURE: Demetra Mccracken RN PATIENT NAME: Raegan Rabago DATE: August 05, 2020 TIME: 1:15 PM PAGER/CONTACT #: [phone] Normal [facility] CBCon 08-05-2020 Absolute nRBC <0.01 Normal <0.01 [facility] Erythrocyte distribution width (RBC) [Ratio] 12.5 % Normal 11.5-15.0 [facility] Hematocrit (Bld) [Volume fraction] 32.9 % Low 36.0-[facility].0 [facility] (Bld) [Mass/Vol] 11.0 g/dL Low 11.5-15.5 [facility] MCH (RBC) [Entitic mass] 30.2 pG Normal 26.0-34.0 [facility] MCHC (RBC) [Mass/Vol] 33.4 g/dL Normal 30.5-36.0 [facility] MCV (RBC) [Entitic vol] 90.4 fL Normal 80.0-100.0 [facility] Platelet mean volume (Bld) [Entitic vol] 10.7 fL Normal 9.0-12.7 [facility] Platelets (Bld) [#/Vol] 228 10*3/uL Normal 150-400 [facility] RBC (Bld) [#/Vol] 3.64 10*6/uL Low 3.90-5.20 [facility] WBC (Bld) [#/Vol] 10.35 10*3/uL Normal 3.70-11.00 [facility] NURSING PROGon 08-05-2020 NURSING PROG HNO ID: [id number] Author: Irena Cary (Rn) SURY Sawyer Service: ? Author Type: Registered Nurse Type: Nursing Progress Note Filed: 08/05/2020 12:17 PM Note Text: Nursing Progress Note Patient Name: Raegan Rabago Patient Location: [place] [address] [address] Daily Note: 0740 awake, alert for am [...] note was completed by: Irena Sawyer RN [facility] PROGRESSon 08-05-2020 PROGRESS HNO ID: [id number] Author: Fidencio Srinivasan Service: General Internal Medicine [...] of care with Dr. Srinivasan. Terri Bernardo APRN.PNEUMATIC PRESS HAND August 05, 2020 12:04 PM I have seen the patient and verified the exam. I have personally reviewed all labs and imaging results. I have discussed with the MEDICAL LEGAL INVESTIGATOR and I have participated in castellanos components. I agree with the note as documented with additional comments if needed. The assessment and plan as outlined are reflection of our discussion. Fidencio Srinivasan MD August 05, 2020 [facility] PROGRESS HNO ID: [id number] Author: Bisi Menchaca MD Service: Orthopaedic Surgery [...] - Follow up: [address] Martinez Rounding Subjective No o/n issues. Pain well controlled. [...] Plan. Bisi Menchaca MD Orthopaedic Surgery, PGY-2 [id number] After 5 and on weekends page 2BONE ([id number]) Normal [facility] THERAPY NTon 08-05-2020 THERAPY NT HNO ID: [id number] Author: Brigitte Moctezuma Service: Occupational Therapy Author Type: Occupational Therapist Type: Therapy (PT/OT/Speech/Resp) Filed: 08/05/2020 1:42 PM Note Text: Occupational Therapy Treatment SERVICE DATE: 08/05/2020 SERVICE TIME: 1032 to 1110 ROOM: [place] [address]- Recommended Discharge Disposition: Home Anticipated Discharge Needs: Physical Assist at Home Physical Assist at Home for: Shopping;Transportation ;Medication Management;Laundry;Jessica pricila OT Recommendations to Nursing: OOB for meals [...] Full Session Occupational Therapy Problem List: Education Deficit;Edema;Pain;Safe ty Deficits;Impaired Self Care;Decreased Skin Integrity Patient /Caregiver [...] with: Patient TREATMENT INTERVENTIONS: Therapy Diagnosis: Reduced mobility-other;Decrease d activities of daily living (ADL) Interventions Provided: Therapeutic Activity (79490);Self Senior Living Management (37771) Therapeutic Activity (08899) Treatment Minutes: 8 1 unit Skilled Intervention(s): [...] and standing balance throughout session. Self Senior Living Management (51933) Treatment Minutes: 30 2 units Skilled Intervention(s): [...] Stairs To Bed/Bath: 0 Tub/Shower Type: WIS HHS built in bench Laundry: 1st floor Equipment Owned: Grab Bars-Shower;Hand Held Shower;Cane;Wheelchair; Shower Bench Prior Functional Level: Within Functional Limits [...] complete details for this therapy evaluation/treatment. SIGNATURE: KOKO Mayer/L PATIENT NAME: Raegan Rabago DATE: August 05, 2020 TIME: 1:33 PM [facility] THERAPY NT HNO ID: [id number] Author: Brigitte SánchezOtSuman Moctezuma Service: Occupational Therapy Author Type: Occupational Therapist Type: Therapy (PT/OT/Speech/Resp) Filed: 08/05/2020 1:26 PM Note Text: Occupational Therapy Evaluation SERVICE DATE: 08/05/2020 SERVICE TIME: 0820 to 0900 ROOM: [address] Recommended Discharge Disposition: Home Anticipated Discharge Needs: Physical Assist at Home Physical Assist at Home for: Shopping;Transportation ;Medication Management;Laundry;Jessica pricila OT Recommendations to Nursing: OOB for meals [...] Full Session Occupational Therapy Problem List: Education Deficit;Edema;Pain;Safe ty Deficits;Impaired Self Care;Decreased Skin Integrity Patient /Caregiver [...] with: Patient TREATMENT INTERVENTIONS: Therapy Diagnosis: Reduced mobility-other;Decrease d activities of daily living (ADL) Interventions Provided: Evaluation;Self Senior Living Management (45974) $ Evaluation-Low (50946) Billed Units: 1 unit Self Senior Living Management (55290) Treatment Minutes: 23 2 units Skilled Intervention(s): [...] Of Stairs To Bed/Bath: 0 Tub/Shower Type: eCardio [facility] built in [email or web address] Laundry: 1st floor Equipment Owned: Grab Bars-Shower;Hand Held Shower;Cane;Wheelchair; Shower Bench Prior Functional Level: Within Functional Limits [...] complete details for this therapy evaluation/treatment. SIGNATURE: KOKO Mayer/Jerry PATIENT NAME: Raegan Rabago DATE: August 05, 2020 TIME: 1:22 PM [facility] [place]04-[place] [facility] HNO ID: [id number] Author: Nuria Barajas (Rt) Service: Radiology Author Type: Ceramic Mold Designer Type: [facility] Filed: 08/04/2020 2:39 PM Note Text: Radiology [...] RT Jenn August 04, 2020 2:39 PM [facility] HNO ID: [id number] Author: Nuria Rose (Rt) Service: Radiology Author Type: Ceramic Mold Designer Type: [facility] Filed: 08/04/2020 8:07 AM Note Text: [...] RT Rose August 04, 2020 8:07 AM [facility] ANES POSTPROC EVALon 020 ANE POSTPROC EVAL HNO ID: [id number] Author: Fabián Neumann Service: ? Author Type: Anesthesiologist Type: Anesthesia Postprocedure Evaluation Filed: 08/04/2020 2:12 PM Note Text: POST ANESTHESIA EVALUATION NOTE : 1955 Procedure Summary Date: 08/04/20 Room / Location: [place] [address] / OR Anesthesia Start: 1053 Anesthesia Stop: 1406 [...] August 04, 2020 TIME: 2:12 PM CSN: [id number] [facility] ANES PRE-OPon 08-04-2020 ANES PRE-OP HNO ID: [id number] Author: Lita Sahu (Srna) Service: ? Author [...] capsule Take 2 capsules by mouth. - xldbbpbhwsv-bjaxolksm-w ilanter (TRELEGY ELLIPTA) 100-62.5-25 mcg INL 1 PUFF [...] August 04, 2020 TIME: 9:07 AM CSN: [id number] [facility] CONSULTon 08-04-2020 CONSULT HNO ID: [id number] Author: Fidencio Srinivasan Service: General Internal Medicine [...] essential hypertension - Vulvar cancer ([facility]) PAST SURGICAL HISTORY: PAST SURGICAL HISTORY Procedure [...] , Rfl: , 08/04/2020 at 0500 - yauwekgpuoq-hsjxfdmiv-t ilanter (TRELEGY ELLIPTA) 100-62.5-25 mcg, INL 1 PUFF [...] the care of your patient. Terri Bernardo APRN.PNEUMATIC PRESS HAND August 04, 2020 3:28 PM I have seen the patient and verified the exam. I have personally reviewed all labs and imaging results. I have discussed with the MEDICAL LEGAL INVESTIGATOR and I have participated in castellanos components. I agree with the note as documented with additional comments if needed. The assessment and plan as outlined are reflection of our discussion. Fidencio Srinivasan MD August 04, 2020 [facility] NURSING PROGon 08-04-2020 NURSING PROG HNO ID: [id number] Author: Sola (Rn) SURY Irvin Service: Nursing Author Type: Registered Nurse Type: Nursing Progress Note Filed: 08/04/2020 10:17 PM Note Text: Nursing Progress Note Patient Name: Raegan Rabago Patient Location: [facility] [place] Daily Note: Assumed care of patient. Patient [...] note was completed by: SOLA IRVIN RN [facility] NURSING PROG HNO ID: [id number] Author: Nisha SánchezRn) SURY Lemos Service: ? Author Type: Registered Nurse Type: Nursing Progress Note Filed: 08/04/2020 3:24 PM Note Text: Nursing Progress Note Patient Name: Raegan Rabago Patient Location: [place] Daily Note: 1510- Pt resting in bed, denies having any chest pain or SOB. Fingers are warm to touch, able to wiggle. Dressing is dry and intact. Discussed plan of care. Denies having any further needs at this time. Call light within reach. This note was completed by: Nisha Lemos RN [facility] OPERATIVE NOon 08-04-2020 OPERATIVE NO HNO ID: [id number] Author: Myra Martinez Service: Orthopaedic Surgery Author Type: Physician Type: Operative Report Filed: 08/04/2020 9:09 PM Note Text: [place] [address] [place] OPERATIVE REPORT NAME: Raegan Rabago [facility] #: [id number] DATE: 08/04/2020 (11:43am-1:43pm) AGE: 65 SURGEON 1: Myra Martinez M.D. [employer] DIRECT[employer]: 1. Shon Francois M.D. 2. Bisi Menchaca M.D. 3. Meredith Ramos PJose L OPERATION: Left reverse total shoulder arthroplasty, removal [...] none COMPLICATIONS: none apparent Myra Martinez M.D. [facility] PT EDon 08-04-2020 PT ED HNO ID: [id number] Author: Irena Marie RN Service: Nursing Author [...] Signed By: Irena Marie RN In Department: [facility] XR SHOULDER 2V AP/TRUE AP LT on [...] on Aug 04 2020 2:58PM EST [id number] [facility] XR SHOULDER SPECIFY 1V RTon 08-04-2020 XR [...] on Aug 04 2020 8:12AM EST [id number] [facility] CT SHOULDER WO IVCON LTon [facility] NURSING PROGon 07-29-2020 NURSING PROG HNO ID: [id number] Author: Jessy SánchezRn) SURY Haddad Service: ? Author Type: Registered [...] Per HPI: COPD; GERD; Anemia; S/P gastric sleeve/BMI-26.77-2007; Parkinson; Anxiety Pre-op Considerations: -Difficult IV access Chart Check: COMPLETED Jessy Haddad RN July 29, 2020 11:43 AM Normal [facility] Confirm Blood Typeon 020 ABO/RH(D) [facility]V FRONTAL/LATon XR CHEST 2V [...] Jul 28 2020 3:58P Dictated by: ARLYN PULIDO, DO This examination was interpreted and the report reviewed and electronically signed by: ARLYN PULIDO DO on Jul 28 2020 4:10PM EST [id number] [facility] HOSPon 07-19-2020 HOSP Patient:Raegan Rabago MRN: Height:5' 9 (1.753 m) Weight:189 lb (85.73 kg) Outpatient Medications as of 08/04/20: oxyCODONE-acetaminophen (PERCOCET) 5-325 mg tablet docusate sodium (COLACE) 100 mg capsule aspirin 81 mg chewable tablet mupirocin (BACTROBAN) 2 % ointment carbidopa-levodopa (SINEMET) 25-100 mg per tablet carbidopa-levodopa CR (SINEMET CR) 25-100 mg per tablet FLUoxetine (PROZAC) 20 mg capsule agdqywdprzs-btsmikgnd-e ilanter (TRELEGY ELLIPTA) 100-62.5-25 mcg ARIPiprazole (ABILIFY) 5 [...] 46.0 36.0 Progress Notes (RADIO CT SCAN [facility]): NILTON Randhawa, CT 07/31/2020 1:49 PM [...] July 31, 2020 1:49 PM Progress Notes ([facility]): Ofelia Alvarado MD 07/28/2020 4:32 PM Addendum CONSULT: pulmonary SERVICE SERVICE DATE: 07/28/2020 REASON FOR CONSULT: copd REQUESTING PHYSICIAN: Dr. Raymundo PRIMARY CARE PHYSICIAN: Devin Raymundo, Subjective Ms. Rabago is a 65 year old [...] visit: Most recent labs and imaging results. Impression/Recommendati ons 1. Copd - clinically sounds well controlled on trelegy. Spirometry today with mild obstruction and cxr shows clear lungs. pts respiratory status is optimized for upcoming shoulder surgery. Encouraged some weight loss, being active and eating healthier. 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 SIGNATURE: Ofelia Alvarado MD PATIENT NAME: Raegan Rabago DATE: July 28, 2020 TIME: 2:53 PM PAGER: [id number] Previous Version Normal [facility] Vital Signs Date Time Vital Sign Value Performing Clinician Facility 06-30-2025 09:10-0400 Body mass index (BMI) [Ratio] 24.37 kg/m2 Mono Chau MD Work Phone: [facility] 06-30-2025 09:10-0400 Body weight 74.84 kg Mono Chau MD Work Phone: [facility] 09-27-2024 10:53-0400 Body height 172.7 cm Aurelia French MD Work Phone: [facility] 09-27-2024 10:53-0400 Body mass index (BMI) [Ratio] 31.63 kg/m2 Aurelia French MD Work Phone: [facility] 09-27-2024 10:53-0400 Body weight 94.35 kg Aurelia French MD Work Phone: [facility] 09-27-2024 10:53-0400 Diastolic blood pressure 74 mm[Hg] Aurelia French MD Work Phone: [facility] 09-27-2024 10:53-0400 Heart rate 78 /min Aurelia French MD Work Phone: [facility] 09-27-2024 10:53-0400 Systolic blood pressure 128 mm[Hg] Aurelia French MD Work Phone: [facility] 06-03-2024 14:32-0400 Body height 175.26 cm [facility] 06-03-2024 14:32-0400 Body mass index (BMI) [Ratio] 30.9 kg/m2 [facility] 06-03-2024 14:32-0400 Body temperature 97.7 [degF] [facility] 06-03-2024 14:32-0400 Body weight 94.91 kg [facility] 06-03-2024 14:32-0400 Heart rate 55 /min [facility] 06-03-2024 14:32-0400 Respiratory rate 18 /min [facility] 06-03-2024 14:32-0400 SaO2% (BldA) [Mass fraction] 94 % [facility] 04-05-2024 11:05-0400 Body height 175.3 cm Shahbaz Amin MD Work Phone: [facility] 04-05-2024 11:05-0400 Body mass index (BMI) [Ratio] 30.26 kg/m2 Shahbaz Amin MD Work Phone: [facility] 04-05-2024 11:05-0400 Body weight 92.99 kg Shahbaz Amin MD Work Phone: [facility] 04-05-2024 11:05-0400 Diastolic blood pressure 82 mm[Hg] Shahbaz Amin MD Work Phone: [facility] 04-05-2024 11:05-0400 Heart rate 95 /min Shahbaz Amin MD Work Phone: [facility] 04-05-2024 11:05-0400 Systolic blood pressure 121 mm[Hg] Shahbaz Amin MD Work Phone: [facility] 03-26-2024 11:07-0400 Body height 175.3 cm Aurelia French MD Work Phone: [facility] 03-26-2024 11:07-0400 Body mass index (BMI) [Ratio] 29.96 kg/m2 [facility] 03-26-2024 11:07-0400 Body weight 92.08 kg Aurelia French MD Work Phone: [facility] 03-26-2024 11:07-0400 Diastolic blood pressure 83 mm[Hg] Aurelia French MD Work Phone: [facility] 03-26-2024 11:07-0400 Heart rate 87 /min [facility] French [facility] 03-26-2024 11:07-0400 Systolic blood pressure 121 mm[Hg] [facility] French [facility] 06-30-2023 14:30-0400 Body height 175.26 cm Brigitte Mariano Other [facility] Other 06-30-2023 14:30-0400 Body mass index (BMI) [Ratio] 29.59 kg/m2 Brigitte Mariano Other [facility] Other 06-30-2023 14:30-0400 Body temperature 98.2 [degF] Brigitte Mariano Other [facility] Other 06-30-2023 14:30-0400 Body weight 90.9 kg Brigitte Mariano Other [facility] Other 06-30-2023 14:30-0400 Diastolic blood pressure 78 mm[Hg] Brigitte Mariano Other [facility] Other 06-30-2023 14:30-0400 Respiratory rate 18 /min Brigitte Mariano Other [facility] Other 06-30-2023 14:30-0400 SaO2% (BldA) [Mass fraction] 93 % Brigitte Mariano Other [facility] Other 06-30-2023 14:30-0400 Systolic blood pressure 116 mm[Hg] Brigitte Mariano Other [facility] Other 06-05-2023 14:00-0400 Body height 175.26 cm Marcellus Dumas Other [facility] Other 06-05-2023 14:00-0400 Diastolic blood pressure 86 mm[Hg] Marcellus Dumas Other [facility] Other 06-05-2023 14:00-0400 SaO2% (BldA) [Mass fraction] 96 % Marcellus Dumas Other [facility] Other 06-05-2023 14:00-0400 Systolic blood pressure 128 mm[Hg] Marcellus Dumas Other [facility] Other Encounters Encounter Date Encounter Type Care Provider Facility Start: 06-30-2025 End: 06-30-2025 Arnoldo Chau MD Work Phone: [facility] Start: 06-30-2025 End: 06-30-2025 Bamboo flowsheet Mono Chau MD Work Phone: [facility] [place] [facility] Start: 06-30-2025 End: 06-30-2025 ambulatory MONO CHAU Not Available Start: 06-30-2025 End: 06-30-2025 Office outpatient new 30 minutes Mono Chau MD Work Phone: [facility] [place] [facility] Comment on above: Hypogammaglobulinemi a (HCC) (Primary Dx); Recurrent sinus infections Start: 05-03-2025 End: 05-03-2025 Emergency department patient visit ROBEL SHANNON JR [facility] Start: 04-15-2025 End: 04-15-2025 ambulatory OTF [facility] Start: 03-31-2025 End: 03-31-2025 ambulatory [facility] Start: 02-05-2025 End: 02-05-2025 Telephone encounter Sindhu Muñoz [facility] Comment on above: 04/15/25 FRENCH PARVIZ GRAY Start: 12-13-2024 End: 12-19-2024 Refill Justice Amor CMA [facility] Comment on above: Parkinson's [...] behavior disorder Start: 09-27-2024 End: 09-27-2024 ambulatory [facility] Start: 08-01-2024 End: 08-01-2024 ambulatory [facility] Start: 06-07-2024 End: 06-07-2024 ambulatory ROBEL L VALONE [facility] Start: 06-03-2024 End: 06-03-2024 Departed Referred AML ANALYST Vicky Marrerob Work Phone: [facility] [place] Work Phone: Start: 06-03-2024 End: 06-03-2024 ambulatory Vicky Galdamez Sae [facility] Work Phone: Start: 06-03-2024 End: 06-03-2024 Patient encounter procedure [facility] José Manuel Work Phone: Start: 05-28-2024 End: 05-28-2024 ambulatory [facility] Start: 05-23-2024 End: 05-23-2024 ambulatory [facility] Start: 05-07-2024 End: 05-07-2024 ambulatory [facility] Start: 04-08-2024 End: 04-10-2024 Refill Meredith Stout [facility] Comment on above: REM sleep behavior d isorder Start: 04-05-2024 End: 04-05-2024 Office outpatient visit 25 minutes Shahbaz Amin MD Work Phone: [facility] Comment on above: Myelopathy ([facility]) (Primary Dx); Drug toxicity; CIDP (chronic inflammatory demyelinating polyneuropathy) ([facility]-H[facility]); Current chronic use of systemic steroids; History of cancer of vulva Start: 04-05-2024 End: 04-05-2024 ambulatory [facility] Start: 03-26-2024 End: 03-26-2024 Office outpatient visit 25 minutes Aurelia French MD Work Phone: [facility] Comment on above: Parkinson's disease without dyskinesia, with fluctuating manifestations ([facility]) (Primary Dx); REM sleep behavior disorder; Action tremor Start: 03-26-2024 End: 04-30-2024 ambulatory [facility] Start: 12-14-2023 Telephone encounter Chelsey Park i [facility] Comment on above: follow up requested Start: 06-30-2023 End: 06-30-2023 Departed Referred MEDICAL LEGAL INVESTIGATOR-C Brigitte Mariano Work Phone: [facility] [place] Work Phone: Start: 06-30-2023 End: 06-30-2023 ambulatory Brigitte Mariano [facility] Work Phone: Start: 06-30-2023 Office outpatient vi sit 15 minutes Brigitte Mariano [facility] José Manuel Start: 06-05-2023 End: 06-05-2023 ambulatory Marcellus Dumas Other [facility] [employer] Other Start: 06-05-2023 Office outpatient vi sit 25 minutes Marcellus Dumas [facility] Start: 03-15-2023 End: 03-16-2023 ambulatory DENNISTUAN CONKLIN . Facility:[facility] Start: 06-02-2022 End: 06-03-[address] JOSEMANUEL CAT Facility:[facility] Start: 04-27-2022 End: 04-28-2022 ambulatory ROBEL SHANNON Facility:[facility] Start: 04-23-2022 End: 04-24-2022 ambulatory RENEE STORY Facility:[facility] Start: 03-30-2022 End: 03-31-2022 ambulatory DENNISTUAN CONKLIN . Facility:[facility] Start: 03-29-2022 End: 03-30-2022 ambulatory DENNISTUAN CONKLIN . Facility:[facility] Start: 08-18-2020 End: 08-18-2020 Subsequent hospital visit by physician [facility] Comment on above: History of left shou lder replacement [Z96.612] Start: 07-31-2020 End: 07-31-[address] Khushboo Work Phone: [facility] Start: 07-31-2020 End: 07-31-2020 Subsequent hospital visit by physician [facility] Khushboo Work Phone: Radiology Comment on above: Rotator cuff arthrop athy of left shoulder [M12.812] Procedures Date Procedure Procedure Detail Performing Clinician Start: 09-27-2024 Adult depression screening assessment Aurelia French MD Work Phone: Start: 05-28-2024 Mammography Mono aden MD Work Phone: Start: 04-05-2024 Adult depression screening assessment Shahbaz Amin MD Work Phone: Start: 03-26-2024 Adult depression screening assessment Aurelia French MD Work Phone: Start: 09-25-2023 Adult depression screening assessment Chelsey Uribe Start: 06-30-2023 Piperacillin/tazobactam Brigitte Mariano Other Start: 08-18-2020 Radex shoulder compl ete minimum 2 views Vinny PIZANO-C Work Phone: Start: 07-31-2020 Ct upper extremity w /o contrast material Myra Martinez MD Work Phone: Start: 07-28-2020 Antibody screen Start: 05-18-2017 Colonoscopy Chelsey Uribe H/O: artificial joint History of left shoulder replacement Xr [facility] Plan of Treatment Date Care Activity Detail Author Start: 2029 RSV Vaccine (1 - 1-dose 75+ series) RSV Vaccine (1 - 1-dose 75+ series) [facility] Start: 05-18-2027 Screening for malignant neoplasm of colon [facility] Start: 09-27-2025 Adult BMI Screening Adult BMI Screening [facility] Start: 09-27-2025 Depression Screening Depression Screening [facility] Start: 09-01-2025 End: 09-01-2025 Patient encounter procedure 09/01/2025 9:40 AM EDT Office Visit [facility] [place] [facility] [address] [place] [phone] Mono Chau MD [address] [place] [address] [facility] [place] [facility] Start: 07-28-2025 Influenza vaccination Influenza Vaccine (#1) [facility] Start: 06-30-2025 End: 06-30-2026 CBC W Auto Differential panel - Blood CBC and differential Lab Routine Hypogammaglobulinemia (HCC) Recurrent sinus infections Expected: 06/30/2025 (Approximate), Expires: 06/30/2026 [facility] Comment on above: Expected: 06/30/2025 (Approximate), Expi res: 06/30/2026 Start: 06-30-2025 End: 06-30-2026 Diphtheria / Tetanus Antibody Panel Diphtheria / Tetanus Antibody Panel Lab Routine Hypogammaglobulinemia (HCC) Recurrent sinus infections Expected: 06/30/2025 (Approximate), Expires: 06/30/2026 [facility] Comment on above: Expected: 06/30/2025 (Approximate), Expi res: 06/30/2026 Start: 06-30-2025 End: 06-30-2026 IgA [Mass/volume] in Serum or Plasma IgA Lab Routine Hypogammaglobulinemia (HCC) Recurrent sinus infections Expected: 06/30/2025 (Approximate), Expires: 06/30/2026 [facility] Comment on above: Expected: 06/30/2025 (Approximate), Expi res: 06/30/2026 Start: 06-30-2025 End: 06-30-2026 IgE [Units/volume] in Serum or Plasma IgE Lab Routine Hypogammaglobulinemia (HCC) Recurrent sinus infections Expected: 06/30/2025 (Approximate), Expires: 06/30/2026 [facility] Comment on above: Expected: 06/30/2025 (Approximate), Expi res: 06/30/2026 Start: 06-30-2025 End: 06-30-2026 IgG [Mass/volume] in Serum or Plasma IgG Lab Routine Hypogammaglobulinemia (HCC) Recurrent sinus infections Expected: 06/30/2025 (Approximate), Expires: 06/30/2026 [facility] Work Phone: Comment on above: Expected: 06/30/2025 (Approximate), Expi res: 06/30/2026 Start: 06-30-2025 End: 06-30-2026 IgM [Mass/volume] in Serum or Plasma IgM Lab Routine Hypogammaglobulinemia (HCC) Recurrent sinus infections Expected: 06/30/2025 (Approximate), Expires: 06/30/2026 [facility] Comment on above: Expected: 06/30/2025 (Approximate), Expi res: 06/30/2026 Start: 06-30-2025 End: 06-30-2026 Tetanus toxoid, IgG Tetanus toxoid, IgG Lab Routine Hypogammaglobulinemia (HCC) Recurrent sinus infections Expected: 06/30/2025 (Approximate), Expires: 06/30/2026 [facility] Comment on above: Expected: 06/30/2025 (Approximate), Expi res: 06/30/2026 Start: 05-28-2025 Screening for malignant neoplasm of breast Mammogram [facility] Start: 04-30-2025 Tobacco Screening Tobacco Screening [facility] Start: 04-15-2025 End: 04-15-2025 Patient encounter procedure [facility] Start: 04-05-2025 Adult BMI Screening Adult BMI Screening [facility] Start: 04-05-2025 Depression Screening Depression Screening [facility] Start: 04-05-2025 Tobacco Screening Tobacco Screening [facility] Start: 03-26-2025 Adult BMI Screening Adult BMI Screening [facility] Start: 03-26-2025 Depression Screening Depression Screening [facility] Start: 03-26-2025 Tobacco Screening Tobacco Screening [facility] Start: 09-25-2024 Adult BMI Screening Adult BMI Screening [facility] Start: 09-25-2024 Depression Screening Depression Screening [facility] Start: 09-25-2024 Tobacco Screening Tobacco Screening [facility] Start: 09-23-2024 End: 09-23-2024 Patient encounter procedure 09/23/2024 11:00 AM EDT Office Visit [facility] [address] [place] [phone] Aurelia French MD [address] [place] [address], [address] [place] [address] [facility] Start: 08-08-2024 End: 08-08-2024 Patient encounter procedure 08/08/2024 11:00 AM EDT Office Visit [facility] [address] [place] [phone] Shahbaz Amin MD [address] [place] [address], [address], [address] [place] [phone] [facility] Start: 07-28-2024 Covid-19 Vaccine ( season) Covid-19 Vaccine () [facility] Start: 07-28-2024 Influenza vaccination [facility] Start: 06-03-2024 Bacteria identified in Urine by Culture [facility] Start: 04-17-2024 End: 04-17-2024 Patient encounter procedure 04/17/2024 11:00 AM EDT Appointment [facility] [address] [place] [address] Shahbaz Amin MD [address] [place] [address], [address] [place] [phone] [facility] Start: 04-05-2024 End: 04-05-2025 CT Abdomen and Pelvis WO contrast CT abdomen and pelvis without contrast Imaging Routine History of cancer of vulva Expected: 04/05/2024, Expires: 04/05/2025 [facility] Comment on above: Expected: 04/05/2024, Expires: Start: 04-05-2024 End: 04-05-2024 Patient encounter procedure 04/05/2024 11:30 AM EDT Office Visit [facility] [address] [place] [phone] Shahbaz Amin MD [address] [place] [address], [address] [place] [address] [facility] Start: 03-26-2024 End: 03-26-2024 Patient encounter procedure [facility] Start: 11-27-2023 Advance Directive Discussion Advance Directive Discussion [facility] Start: 08-05-2023 DIABETES SCREEN DIABETES SCREEN [facility] Start: 08-05-2023 Diabetes Screening Diabetes Screening [facility] Start: 07-28-2023 Influenza vaccination [facility] Start: 06-30-2023 Bacteria identified in Urine by Culture Urine Culture [facility] Start: 06-08-2023 Fall Risk Screening Fall Risk Screening [facility] Start: 11-27-2022 ADVANCE DIRECTIVE DISCUSSION ADVANCE DIRECTIVE DISCUSSION [facility] Start: 05-18-2022 Screening for malignant neoplasm of colon Colonoscopy [facility] Start: 2019 BONE DENSITY BONE DENSITY [facility] Start: 2019 Pneumococcal Vaccine: 65+ (2 of 2 - PCV) Pneumococcal Vaccine: 65+ (2 of 2 - PCV) [facility] Start: 2019 Screening for osteoporosis Bone Density Screening [facility] Start: 02-07-2007 PNEUMOCOCCAL: 65+ (2 - PCV) PNEUMOCOCCAL: 65+ (2 - PCV) [facility] Start: 2004 Administration of varicella zoster vaccine Zoster (Shingles) Vaccine (1 of 2) [facility] Start: 2004 SHINGRIX VACCINE (1 of 2) SHINGRIX VACCINE (1 of 2) [facility] Start: 1999 COLOGUARD (FIT-DNA) COLOGUARD (FIT-DNA) [facility] Start: 1999 Colonoscopy COLONOSCOPY [facility] Start: 1999 COLORECTAL CANCER SCREENING COLORECTAL CANCER SCREENING [facility] Start: [address] COLONOGRAPHY [facility] Start: 1999 FECAL OCCULT BLOOD FECAL OCCULT BLOOD [facility] Start: 1999 Lipid panel Lipid Screening [facility] Start: 1999 LIPID SCREEN LIPID SCREEN [facility] Start: 1999 Screening for malignant neoplasm of colon [facility] Start: 1999 SIGMOIDOSCOPY SIGMOIDOSCOPY [facility] Start: 1994 Mammography MAMMOGRAM [facility] Start: 1994 Screening for malignant neoplasm of breast Mammogram Screening [facility] Start: 1984 Zoledronic acid therapy ALPHA-1 ANTITRYPSIN DEFICIENCY SCREENING [facility] Start: 1973 DTaP,Tdap and Td Vaccines (1 - Tdap) DTaP,Tdap and Td Vaccines (1 - Tdap) [facility] Start: 1973 Urine microalbumin profile [facility] Start: 1972 Adult BMI Follow Up Plan Adult BMI Follow Up Plan [facility] Start: 1972 ANNUAL PCP TEAM CHRONIC DISEASE VISIT ANNUAL PCP TEAM CHRONIC DISEASE VISIT [facility] Start: 1972 Anxiety Screening Anxiety Screening [facility] Start: 1972 BP CONTROLLED (<130/80) BP CONTROLLED (<130/80) [facility] Start: 1972 Depression Screening Depression Screening [facility] Start: 1972 HEPATITIS C SCREENING HEPATITIS C SCREENING [facility] Start: 1972 Hepatitis C screening Hepatitis C Screening [facility] Start: 1954 COVID-19 VACCINE (#1) COVID-19 VACCINE (#1) [facility] Start: 1954 Medicare Annual Wellness Visit Medicare Annual Wellness Visit [facility] Start: 1954 Screening for malignant neoplasm of colon [facility] End: 04-05-2025 Glucose [Mass/volume] in Serum or Plasma Glucose Lab Routine CIDP (chronic inflammatory demyelinating polyneuropathy) ([facility]) Current chronic use of systemic steroids weekly for 6 Occurrences starting 04/05/2024 until 04/05/2025 [facility] Work Phone: Comment on above: weekly for 6 Occurrences starting 2023 until 04/05/2025 STREPTOCOCCUS PNEUMONIA AB (IGG) (23 SEROTYPES) STREPTOCOCCUS PNEUMONIA AB (IGG) (23 SEROTYPES) Lab Routine Hypogammaglobulinemia (HCC) Recurrent sinus infections Ordered: 06/30/2025 [facility] Comment on above: Ordered: 06/30/2025 Immunizations Immunization Date Immunization Notes Care Provider Galindo bates 06-30-2025 pneumococcal polysaccharide vaccine, 23 valent Mono Chau MD Work Phone: [facility] 08-13-2022 influenza virus vacc ine, unspecified formulation Chelsey Uribe [facility] 10-30-2011 influenza virus vacc ine, unspecified formulation Xr Sharon [facility] 02-07-2006 pneumococcal polysaccharide vaccine, [address] Khushboo Work Phone: [facility] Payers Date Payer Category Payer Self-pay [id number] 2022 Medicare (Managed Care) [facility] MEDICARE [id number] 2019 Medicare [id number] 1959 Medicare [id number] 1959 Private Health Insurance [id number] 1954 Unknown [id number] [id number] .647 1954 Unknown [id number] 2.840.1.715347.3.579.2 .593 1954 Unknown [id number] 2..840.1.732713.3.579.2 .593 1954 Unknown [id number] 2.16.840.1.156076.3.579.2 .593 1954 Unknown [id number] 2.16.840.1.566023.3.579.2 .593 1954 Unknown [id number] 2.16.840.1.008085.3.579.2 .593 1954 Unknown [id number] 2.16.840.1.007599.3.579.2 .1286 1954 Unknown [id number] 2.16.840.1.153494.3.579.2 .1285 1954 Unknown [id number] 2.16.840.1.071030.3.579.2 .1285 1954 Unknown [id number] 2.16.840.1.412864.3.579.2 .1285 1954 Unknown [id number] 2.16.840.1.861000.3.579.2 .128 1954 Unknown [id number] 2.16.840.1.766470.3.579.2 .1285 1954 Unknown [id number] 2.16840.1.100331.3.579.2 .1285 1954 Unknown [id number] 2.16840.1.974292.3.579.2 .1285 1954 Unknown [id number] 2.16.840.1.278786.3.579.2 .1285 1954 Unknown [id number] 2.16840.1.468909.3.579.2 .1259 Medicare Medicare [id number] Unknown [id number] Unknown [id number] 2.16840.1.648146.3.579.2 .531 Unknown [id number] 2.160.1.199697.3.579.2 .531 Social History Date Type Detail Facility Start: 07-28-2020 End: 06-30-2025 Sex Assigned At [facility] Start: 1955 Sex Assigned At Female F [facility] Start: 07-28-2020 End: 06-21-2023 Tobacco smoking status NHIS Ex-smoker [facility] Work Phone: Start: 11-27-1969 End: 11-27-2014 History of tobacco use Current smoker [facility] Work Phone: Start: 11-27-1969 End: 11-27-2014 History of tobacco use Cigarette Smoker [facility] Work Phone: Start: 07-28-2020 End: 06-30-2025 Cigarettes smoked current (pack per day) - Reported 1.5 [facility] Start: 07-28-2020 End: 08-04-2020 Tobacco use and exposure Smokeless tobacco non-user [facility] Work Phone: Start: 07-28-2020 End: 06-30-2025 Alcohol intake Current drinker of alcohol (finding) [facility] How often to you hav e a drink containing alcohol? Monthly or less [facility] How many standard drinks containing alcohol do you have on a typical day? 1 or 2 [facility] How often do you hav e 6 or more drinks on 1 occasion? Never [facility] Start: 1955 Sex Assigned At Not on file [facility] Start: 06-28-2020 End: 08-18-2020 Exposure to SARS-CoV-2 (event) Not sure [facility] How hard is it for y ou to pay for the very basics like food, housing, medical care, and heating Not hard at all [facility] (I/We) worried laith er (my/our) food would run out before (I/we) got money to buy more. Never true [facility] Start: 08-05-2020 Education 21 [facility] Start: 06-29-2023 Tobacco use and exposure Former smokeless tobacco user [facility] History of tobacco use Snuff User [facility] Start: 07-18-2023 Alcohol Comment Socially [facility] Start: 07-02-2015 Sex Female (finding) [facility] Start: 06-21-2023 Alcohol Comment drinks monthly or le ss [facility] Medical Equipment Procedure Code Equipment Code Equipment Origin al Text Equipment Identifier Dates Altivate Djo Rev erse Humeral Stem Small Shell 12mm X 48mm [id number] Start: 08-04-2020 Insert Ar Small [id number] Neutral +4 Eplus - [id number] Start: 08-04-2020 Head Rsp 32mm -4 mm Offset Glenoid Retain Screw - [id number] Start: 08-04-2020 Baseplate Rsp P2 30mm Glenoid Sterile - [id number] Start: 08-04-2020 Screw Rsp 5mm 30 mm Bone Lock Glenoid Baseplate Shoulder - [id number] Start: 08-04-2020 Screw Rsp 5mm 26 mm Bone Lock Glenoid Baseplate Shoulder - [id number] Start: 08-04-2020 Screw Rsp 5mm 18 mm Bone Lock Glenoid Baseplate Shoulder - [id number] Start: 08-04-2020 Screw Rsp 5mm 18 mm Bone Lock Glenoid Baseplate Shoulder - [id number] Start: 08-04-2020 Cement Bn Bio 40 gm Rpl [id number] - Sn/A - [id number] ()[id number](1 7)[id number] 03()N/A, [id number] FDA Start: 07-18-2023 Cement Bn Bio 40 gm Rpl [id number] - Sn/A - [id number] ()[id number](1 )[id number](10)[id number] 04()N/A, [id number] FDA Start: 07-18-2023 Component Ptlr 3 2mm Persona Alply Kn Strl Lf - Sn/A - [id number] Start: 07-18-2023 Insert Artc 3-4 E-F 10mm Kn Fx Brng Prlng Nxgn Lpsflx Strl Lpsflx Rpl [id number] + [id number] - Sn/A - [id number] ()[id number](1 7)[id number]([id number] (21)N/A, [id number] FDA Start: 07-18-2023 Component Fem E Kn Rt Lpsflx Gndr Ronna? Nxgn Cocr Rpl [id number] - Sn/A - [id number]/$$ [id number]/SN/A , [id number] FDA Start: 07-18-2023 Plate Tib 66x46m m Nxgn Kn Cmnt Mdlr Stm Prect 4 Tiv Pmma Rpl 163728 + [id number] - Sn/A - [id number] (01)[id number](1 7)[id number](10)[id number] (21)N/A, [id number] FDA Start: 07-18-2023 Goals Date Patient Goal Desired Activity /State Personal health goal Comment on above: Formatting of this n ote might be different from the original. Evaluation of progress towards goal: Home with family support and [facility] Clinical Notes 07-31-2020 to 06-30-2025 Mono Chau MD - 06/30/2025 9:00 AM EDTTelephone Encounter - Sindhu Muñoz - 02/05/2025 8:36 AM EDTTelephone Encounter - Meredith Stout - 02/05/2025 8:36 AM EDTPatient Instructions Note Date & Type Note Facility 06-30-2025 History of Presen t illness Narrative Raegan Rabago is a very pleasant 70 y.o. 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 She has been on antibiotics often with steroids since Aug. She would have symptoms of productive cough, and frequent cough with episodes of bronchitis. She has a history pf parkinsons and CHF and neuropathy. She has a very slowly healing ulcer on her leg from a scratch from her dog but no other infections other than the respiratory infections. She has needed about 10-12 courses of antibiotics in the past year. She had pseudomonas cultured out at one point in time. She has frequent sinus symptoms with nasal airway obstruction facial pressure and headache. Referred by Dr. Dennis Conklin Albuterol Trelegy 100 Singulair trazodone and Breztri. She is taking Trelegy and Breztri both together. IgG = 582 IgG2 = 96 (130-555) IgG3 = 13 (15-102) MBL = < 20 pst = 02/16 AH50 = 122 10/2024 in [place] FEV1 = 78% FVC = 84% DLCO = 70% EXAM The patient appears comfortable in the office today. Lungs are clear to auscultation bilaterally. The oral mucosa is pink and healthy without any lesions or ulcers. The palate elevates in the midline. The nasal mucosa is pink and healthy. There is no epistaxis mucopus or nasal polyposis noted. The nasal septum is approximately in the midline. The skin is clear of any lesions, excoriations, or erythema. IMPRESSION: Hypogammaglobulinemia- the patient received pneumococcal vaccination in the office today and we agreed to recheck her pneumococcal sub titers as well as the rest of her immunologic survey in 4 weeks and then have her follow up in 4 weeks to consider IVIG therapy based on her laboratory results at that time. documented in this encounter [facility] 03-31-2025 Note Department of Psychi atry Outpatient Progress Note Time In: 1:30 pm Time Out: 1:50 pm Present At Visit: Patient Patient Location: Office Patient Present in [place]: Yes CC: Depression HPI: Raegan Rabago is a 70 y.o. female presenting to the [facility] Psychiatry Clinic for management of MDD and DAVINA. The patient states that she is Ok and continues to have low energy Adding the Wellbutrin did help but not as much She recently returned from [place] where she said it has not been much different she doesn't have any friends in [place]. She said the wellburtin originially gave her [...] for: TSH , VITD25 , FOLATE , [id number] No results found for: HGBA1C , LDL [...] Service Plan (ISP): Progress Toward ISP Goals/Objectives: [facility] 02-05-2025 Miscellaneous Notes 1st Attempt - Reschedule: Patient's appointment needs to be rescheduled at this time due to provider out of clinic. Left voicemail requesting return call to reschedule. Date: April 15, 2025 Provider: Dr. French Rescheduling Instructions: MOVE PATIENTS TO STONER- 60 MIN Core Winding Operator received a call from patient about below encounter. Patient is rescheduled with Dr. Stoner on 04/15/25 at 10:30am. Thank you so much documented in this encounter [facility] 02-05-2025 Telephone encounter Note 1st Attempt - Reschedule: Patient's appointment needs to be rescheduled at this time due to provider out of clinic. Left voicemail requesting return call to reschedule. Date: April 15, 2025 Provider: Dr. French Rescheduling Instructions: MOVE PATIENTS TO STONER- 60 MIN [facility] 02-05-2025 Telephone encounter Note Core Winding Operator received a call from patient about below encounter. Patient is rescheduled with Dr. Stoner on 04/15/25 at 10:30am. Thank you so much [facility] 12-13-2024 Miscellaneous Notes Images from the original note were not included. Refill Request: documented in this encounter [facility] 12-13-2024 Telephone encounter Note Images from the original note were not included. Refill Request: [facility] 09-27-2024 History of Presen t illness Narrative Images from the original note were not included. [address] [facility] [address] Patient: Raegan Rabago Date of : 1955 [...] 2 3 PTSD: No data to display [place]: No data to display REDD-10: No data to display Past Medical, Family, Surgical, and Social History Update: The following portions of the patient's history were reviewed and updated as appropriate: allergies, current medications, past family history, past medical history, past social history, past surgical history and problem list. Past Medical History: Diagnosis Date Allergic rhinitis Anemia Arrhythmia 2012 pvc's, frequent Cervical cancer ([facility]) 02/03/1982 Cervical dysplasia Chronic reflux esophagitis COPD (chronic obstructive pulmonary disease) ([facility]) Depression Emphysema of lung ([facility]) Heart failure ([facility]) Hyperlipidemia Hypertension Lump or mass in breast Parkinson's disease ([facility]) Tremor Urinary frequency Visual impairment Vulva cancer ([facility]) 03/27/2012 Family History Problem Relation Age of Onset Breast cancer Neg Hx Past Surgical History: Procedure Laterality Date ABDOMINOPLASTY BACK SURGERY ruptured disc L5 BREAST BIOPSY Left 1998 BENIGN BREAST BIOPSY Right 2014 BENIGN CARDIAC CATHETERIZATION CHOLECYSTECTOMY COLONOSCOPY N/A 05/18/2017 Performed by Will Lester DO at [facility] HYSTERECTOMY 1976 PARTIAL AT AGE 21 JOINT REPLACEMENT Left knee KNEE ARTHROSCOPY OOPHORECTOMY Bilateral MANY YEARS AFTER HYSTERECTOMY REDUCTION MAMMAPLASTY Bilateral 1998 REVISION OF THE REDUCTION IN 2014 REPLACEMENT TOTAL JOINT KNEE Right 07/18/2023 Performed by Kole Colvin Jr., DO at [facility] REVERSE TOTAL SHOULDER ARTHROPLASTY Bilateral SHOULDER [...] Gait/Coord/DTR: Abnormal Gait: unsteady and abnormal gait ([place] stride, has to use arms to sit [...] Normal mood/affect and good eye contact. MDS-UPDRS: @FLOW([id number],62903 8132,[id number],455841 134,[id number],[id number],[id number] 65,733364586,839484053,27224959 8,377676755,[id number],682217989 ,[id number],[id number],[id number], [id number],[id number],682626616,2 [id number],443750546,[id number],21 7000840,[id number],[id number],210 203197,477022551,117443850,2102 34446,819223724,180749573,05721 8176,292729339,419709452,472399 179,[id number],[id number])@ TETRAS: @FLOW([id number],40982,27357,25723,1 5695,68085,28219,67229,68313,15 702,97920,63484,14670,41893,157 18,85884,65600,14812,73978,1572 8,20296,36294,93192,97792,28886 ,81252,29472,53726,13719,61970, 10083,18079,57591,63830,19699,1 5803,01392,41166,53324,89624,15 809,89669,35900,04155,26281,158 15,62566,34712)@ Assessment and Plan: There are no diagnoses linked to this encounter. Problem List None Diagnoses and all orders for this visit: Parkinson's disease without dyskinesia, with fluctuating manifestations ([facility]) REM sleep behavior disorder Action tremor Raegan [...] for your understanding. documented in this encounter [facility] 08-01-2024 Note Department of Psychi atry Outpatient Progress Note Time In: 1:00 pm Time Out: 1:20 pm Present At Visit: Patient Patient Location: Office Patient Present in [place]: Yes CC: Depression HPI: Raegan Rabago is a 69 y.o. female presenting to the [facility] Psychiatry Clinic for management of MDD and DAVINA. The patient states that she is Ok and continues to have low energy Adding the Wellbutrin did help but not as much She recently returned from [place] where she said it has not been much different she doesn't have any friends in [place]. She said the wellburtin originially gave her [...] for: TSH , VITD25 , FOLATE , [id number] No results found for: HGBA1C , LDL [...] improve mood Strengths (more content not included)... [facility] 04-08-2024 Miscellaneous Notes Medication Refill request: Medication [...] day supply preferred: 90 day Pharmacy Name: [id number] [place], [place] Request was made by: Patient-Raegan [phone] Please Advise. Thank you so much When [...] office note dated 04/05/24, pharmacy verified as [facility]. Prescription sent to the provider Dr. French [...] times a day. documented in this encounter [facility] 04-08-2024 Telephone encounter Note Medication Refill request: [...] 90 day Pharmacy Name: [id number] [place], [place] Request was made by: Patient-Raegan [phone] Please Advise. Thank you so much [facility] 04-08-2024 Telephone encounter Note When [...] medication or have they stopped it yes [facility] 04-08-2024 Telephone encounter Note Steroids such as dexamethasone can sometimes worsen symptoms. If they have stopped the dexamethasone, they should look for any improvement in the tremors. If not, we can consider adjusting dose of carbidopa-levodopa. [facility] 04-08-2024 Telephone encounter Note Medication [...] would like to have her medication adjusted. [facility] 04-08-2024 Telephone encounter Note We can increase the dose of Sinemet IR 25/100 mg to 1.5 tablets by mouth 4 times a day. [facility] 04-05-2024 History of Presen t [...] with a cane. EMG/NCS were done by me last week. She does have a history [...] high on differential. documented in this encounter [facility] 03-26-2024 History of Presen t illness Narrative Images from the original note were not included. [address] [facility] [address] Patient: Raegan Rabago Date of : 1955 [...] 2 3 PTSD: No data to display [place]: No data to display REDD-10: No data to display Past Medical, Family, Surgical, and Social History Update: The following portions of the patient's history were reviewed and updated as appropriate: allergies, current medications, past family history, past medical history, past social history, past surgical history and problem list. Past Medical History: Diagnosis Date Allergic rhinitis Anemia Arrhythmia 2013 pvc's, frequent Cervical cancer ([facility]) 02/03/1982 Cervical dysplasia Chronic reflux esophagitis COPD (chronic obstructive pulmonary disease) ([facility]) Depression Emphysema of lung ([facility]) Hyperlipidemia Hypertension Lump or mass in breast Parkinson's disease ([facility]) Tremor Urinary frequency Visual impairment Vulva cancer ([facility]) 03/27/2012 Family History Problem Relation Age of Onset Breast cancer Neg Hx Past Surgical History: Procedure Laterality Date ABDOMINOPLASTY BACK SURGERY ruptured disc L5 BREAST BIOPSY Left 1998 BENIGN BREAST BIOPSY Right 2014 BENIGN CARDIAC CATHETERIZATION CHOLECYSTECTOMY COLONOSCOPY N/A 05/18/2017 Performed by Will Lester DO at [facility] HYSTERECTOMY 1976 PARTIAL AT AGE 21 JOINT REPLACEMENT Left knee KNEE ARTHROSCOPY OOPHORECTOMY Bilateral MANY YEARS AFTER HYSTERECTOMY REDUCTION MAMMAPLASTY Bilateral 1998 REVISION OF THE REDUCTION IN 2014 REPLACEMENT TOTAL JOINT KNEE Right 07/18/2023 Performed by Kole Colvin Jr., DO at [facility] REVERSE TOTAL SHOULDER ARTHROPLASTY Bilateral SHOULDER [...] Light touch and temperature intact throughout. Coordination: Vayhee-[id number]-[id number] is normal bilaterally. Gait: Must press on the chair armrest to stand. Ambulates with a cane in left hand, mildly reduced arm swing on the right. Decreased stride length and mild en block turning. Assessment and Plan: Diagnoses and all orders for this visit: Parkinson's disease without dyskinesia, with fluctuating manifestations ([facility]) - carbidopa-levodopa (SINEMET CR) 25-100 mg per [...] also endorses some memory difficulties and a Power was 26/30. On exam, she has no [...] Additional Notes/Findings: None. documented in this encounter [facility] 03-26-2024 Instructions Tato De La Cruz MD [...] periods of constipation. documented in this encounter [facility] 12-14-2023 Miscellaneous Notes Patient call [...] below. Patient is scheduled to see Dr mAin at our [place] location on 04/05/24 at 11:30a for a 30 minute established patient appointment. documented in this encounter [facility] 12-14-2023 Telephone encounter Note Patient call to schedule a follow up appointment in March [address] Amin. From last office, there is no follow up directions. 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 She would like to be schedule after her EMG that is scheduled for 03/26/2024. Please advise if patient can be seen in March 2024. Thank you [facility] 12-14-[address] Amin, Patient also sees Dr French for Parkinson's. Did you intend for patient to follow up with you? [facility] 12-14-2023 Telephone encounter Note Yes I would like to see her after her EMG. [facility] Work Phone: 12-14-2023 Telephone encounter Note Contacted patient to schedule follow up with Dr Amin per encounter below. Patient is scheduled to see Dr Amin at our [place] location on 04/05/24 at 11:30a for a 30 minute established patient appointment. [facility] 06-30-2023 Evaluation note Encounter Date Diagnosis Assessment Notes Jun, Dysuria (ICD-10 - R30.0) Jun, Urinary tract infection, site not specified (ICD-10 - N39.0) Drink plenty fluids, get plenty of rest. Take the Pyridium and Macrobid as prescribed until gone. Follow-up with your family physician if no improvement in 2 to 3 days Jun, Hematuria, unspecified (ICD-10 - R31.9) [facility] Other 07-10-2023 Evaluation note* Encounter Date Diagnosis [...] I recommend she follow up with Dr Stepanic for surgical intervention. May, Pain in right knee (ICD-10 - M25.561) Follow up with Dr Colvin for surgical intervention May, Other chronic pain (ICD-10 - G89.29) Patient can consider proceeding genicular nerve block and RFA, however, she is aware this would be out of pocket as this is not covered by her insurance. Re5ult Other 05-27-2021 NoteHNO ID: [id number] Author: Myra Martinez MD Service: ? Author Type: Physician Type: Progress Notes Filed: 04/22/2021 2:42 PM Note Text: [facility] NOTE Department of Orthopaedics Myra Martinez M.D. NAME: Raegan Rabago [facility] NO.: [id number] DATE: April 22, 2021 DATE OF SURGERY: [...] not hesitate to call. MYRA MARTINEZ M.D.[facility]05-27-2021 NoteHNO ID: [id number] Author: RT Lui(R) Service: ? Author Type: Ceramic Mold Designer Type: Progress Notes Filed: 04/22/2021 12:02 PM [...] BY: RT Lui(R) April 22, 2021 12:01 [facility]09-22-2020 History of Present illness Narrative* Lani Gutiérrez (Tech), Tech - 08/18/2020 12:30 PM EDT Radiology Service Progress Note PATIENT NAME: Raegan Rabago DATE OF SERVICE: August 18, 2020 TIME: [...] 18, 2020 12:36 PM [facility] of Present illness Narrative* Ashwini Benson ([place])NIL[place] - 07/31/2020 2:00 PM EDT Radiology Service [...] 31, 2020 1:49 PM documented in this encounterOhio[facility] HospitalEvalusaint [facility] noteNo assessment information availablePromedica [facility] Work Phone: Evaluation note* Diagnosis Rotator cuff arthropathy of left shoulder Chronic left shoulder pain Pain in joint, shoulder region Pre-op exam Preoperative examination, unspecified documented in this encounter [facility]* Diagnosis Onset Date Resolution Status Dysuria acute [facility] Work Phone: Evaluation note* Diagnosis Pre-op evaluation- [...] left shoulder replacement [facility] encounter [facility]* Diagnosis Parkinson's disease without dyskinesia, with fluctuating manifestations (CMS-HCC) [facility] Diagnosis Parkinson's disease without dyskinesia, with fluctuating manifestations (CMS-HCC)- Primary REM sleep behavior disorder Action tremor Essential and other specified forms of tremor documented [facility]* Diagnosis Myelopathy (CMS-HCC)- Primary Unspecified disease of spinal cord Drug toxicity Nonspecific abnormal toxicological findings 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 Current chronic use of systemic steroids History of cancer of vulva documented [facility]* Diagnosis REM sleep behavior disorder [facility]* Diagnosis Parkinson's disease without dyskinesia, with fluctuating manifestations (CMS-HCC)- Primary REM sleep behavior disorder [facility]* Diagnosis REM sleep behavior disorder [facility]* Diagnosis Hypogammaglobulinemia (HCC)- Primary Unspecified hypogammaglobulinemia Recurrent sinus infections Unspecified sinusitis (chronic) [facility] - Reported* Type Description Date Medical History parkinsons disease Medical History hypercholesterolemia Medical History chronic depression Medical History COPD Surgical History hysterectomy Surgical History cholecystectomy Surgical History back surgery Surgical History total left knee replacement Hospitalization History Pneumonia Re5ult Other InstructionsNot on filedocumented in this encounter [facility] SystemInstructionsNot on filedocumented in this encounter [facility] SystemInstructionsNot on filedocumented in this encounter [facility] SystemInstructionsNot on filedocumented in this encounter [facility] SystemInstructionsNot on filedocumented in this encounter [facility] Summary Purpose Family History No Family History Records Found Relationship Condition Age at Onset Recorded Date/T kiko father Unknown Diabetes mellitus Unknown History of stroke Unknown Hypertension Unknown Malignant neoplasm Unknown mother Unknown Advance Directives No Advanced Directives Records Found Advance Directive Response Recorded Date/ Time Advance Directives No April 09 9 7:24pm Date Activated Date Inactivated Comments 07/17/2023 8:33 PM 07/19/2023 3:10 PM Date Activated Date Inactivated Comments 07/17/2023 8:33 PM 07/19/2023 3:10 PM Latest Code Status on File Code Status Date Activated Date Inactivated Comments Full Code 07/17/2023 8:33 PM 07/19/2023 3:10 PM Hospital Course Note HNO ID: [id number] Author: Skye Menchaca MD Service: Orthopaedic Surgery Author Type: [...] (more content not included)... Note HNO ID: [id number] Author: Fidel Marrero) Thien Service: ? Author Type: Anesthesiologist Type: Anesthesia [...] (more content not included)... Note HNO ID: [id number] Author: Deniz Epstein Service: ? Author Type: Nurse Cured Meats Supervisor Type: Anesthesia Procedure Notes Filed: 08/04/2020 11:27 AM Note Text: ANESTHESIOLOGY PROCEDURE NOTE Airway General Information Procedure Start Time/Medication Administration: 08/04/2020 11:04 AM Patient location during procedure: OR Timeout Performed Pre-procedure: timeout performed Consent Obtained: Yes Patient identity confirmed: arm band, care receiving team member and patient Staffing Anesthesiologist: Fabián Neumann BATCH STILL OPERATOR: Alma Epstein Performed by: JUAN Indications and [...] not included)... Procedure Findings Note HNO ID: [id number] Author: Fidel Neumann Service: ? Author Type: [...] (more content not included)... Note HNO ID: [id number] Author: Deniz Epstein Service: ? Author Type: Nurse Cured Meats Supervisor Type: Anesthesia Procedure Notes Filed: 08/04/2020 11:27 AM Note Text: ANESTHESIOLOGY PROCEDURE NOTE Airway General Information Procedure Start Time/Medication Administration: 08/04/2020 11:04 AM Patient location during procedure: OR Timeout Performed Pre-procedure: timeout performed Consent Obtained: Yes Patient identity confirmed: arm band, care receiving team member and patient Staffing Anesthesiologist: Fabián Neumann BATCH STILL OPERATOR: Alma Epstein Performed by: BATCH STILL OPERATOR Indications and Patient Condition Preoxygenated: yes Patient [...] Referral Specialty Diagnoses / Procedures Referred By Paras t Referred To Contact Radiology Diagnoses History of cancer of vulva Procedures CT abdomen and pelvis without contrast Shahbaz Amin MD [facility], [address] [place] [address] [facility] [address] [place] [address] Phone: [phone] Referral ID Status Reason Start Date Expiration Date V isits Requested Visits Authorized [id number] Authorized 04/05/2024 04/05/2025 1 1 Specialty Diagnoses / Procedures Referred By Contac t Referred To Contact Rehabilitation Diagnoses Parkinson's disease without dyskinesia, with fluctuating manifestations ([facility]) Tato eD La Cruz MD [address] [place] [id number] [facility] [address] [place] [address] Referral ID Status Reason Start Date Expiration Date Visits Requested Visits Authorized [id number] Pending Review Specialty Services Required 03/26/2024 03/27/2025 12 12 Additional Source Comments INFORMATION SOURCE (unrecogn ized section and content) DATE CREATED AUTHOR 07/28/2020 [facility] DATE CREATED AUTHOR AUTHOR'S ORGANIZ ATION 08/07/2020 [facility] DATE CREATED AUTHOR AUTHOR'S ORGANIZ ATION 01/20/2022 [facility] DATE CREATED AUTHOR AUTHOR'S ORGANIZ ATION 05/12/2022 [facility] DATE CREATED AUTHOR AUTHOR'S ORGANIZ ATION 03/20/2023 [facility] DATE CREATED AUTHOR AUTHOR'S ORGANIZ ATION 06/11/2024 [facility] DATE CREATED AUTHOR AUTHOR'S ORGANIZ ATION 09/29/2024 [facility] DATE CREATED AUTHOR AUTHOR'S ORGANIZ ATION 04/03/2025 [facility] DATE CREATED AUTHOR AUTHOR'S ORGANIZ ATION 04/16/2025 [facility] DATE CREATED AUTHOR AUTHOR'S ORGANIZ ATION 05/04/2025 [facility] DATE CREATED AUTHOR AUTHOR'S ORGANIZ ATION 07/01/[address] [facility] dical Specialists EPIC REASON FOR VISIT (unrecogniz ed section and content) Reason Comments Radiology CT Reason Comments Radio Gen RMP Reason Onset Date Comments Med Refill 12/13/2024 Reason Comments Idiopathic progressive neuropathy Reason Onset Date Comments follow up requested 12/14/2023 Reason Onset Date Comments Med Refill 04/08/2024 Reason Comments Med Refill Reason Onset Date Comments 04/15/25 FRENCH RESCHEDULE 02/05/2025 Reason Comments Immunodeficiency Referral from Dr Tommy garner for low immune system Care Teams (unrecognized sec tion and content) Team Status: Inactive Member Role Status Dates LOVE Delarosa Attending Provider Active Poultry Farm Worker Relationship Specialty Start Date End Date Devin Raymundo [address] [place] [phone] PCP - General Family Medicine 04/26/11 Team [...] June 03, 2024 End: June 03, 2024 Poultry Farm Worker Relationship Specialty Start Date End Date Devin Raymundo [address] [place] [phone] PCP - General Family Medicine 04/26/11 Poultry Farm Worker Relationship Specialty Start Date End Date Robel Shannon Jr., DO [address] [place] [address] [phone] PCP - General Internal Medicine 07/09/18 Poultry Farm Worker Relationship Specialty Start Date End Date Robel Shannon Jr., DO [address] [place] [address] [phone] PCP - General Internal Medicine 07/09/18 Poultry Farm Worker Relationship Specialty Start Date End Date Robel Shannon Jr., DO [address] [place] [address] [phone] PCP - General Internal Medicine 07/09/18 Poultry Farm Worker Relationship Specialty Start Date End Date Robel Shannon Jr., DO [address] [place] [address] [phone] PCP - General Internal Medicine 07/09/18 Poultry Farm Worker Relationship Specialty Start Date End Date Robel Shannon Jr., DO [address] [place] [address] [phone] PCP - General Internal Medicine 07/09/18 Poultry Farm Worker Relationship Specialty Start Date End Date Robel Shannon Jr., DO [address] [place] [address] [phone] PCP - General Internal Medicine 07/09/18 Poultry Farm Worker Relationship Specialty Start Date End Date Robel Shannon Jr., DO [address] [place] [address] [phone] PCP - General Internal Medicine 07/09/18 Poultry Farm Worker Relationship Specialty Start Date End Date Robel Shannon Jr., DO [address] [place] [address] [phone] PCP - General Internal Medicine 07/09/18 Poultry Farm Worker Relationship Specialty Start Date End Date Robel Shannon MD [address] [place] [phone] PCP - General Internal Medicine 06/21/23 Poultry Farm Worker Relationship Specialty Start Date End Date Robel Shannon MD [address] [place] [address] [phone] PCP - General Internal Medicine 06/21/23 Goals (unrecognized section and content) Goals may be documented in a n alternate section Source Comments (unrecognize d section and content) In the event this informatio n is protected by the Federal Confidentiality of Alcohol and Drug Abuse Patient Records regulations: The Federal rules restrict any use of the information to criminally investigate or prosecute any alcohol or drug abuse patient.[facility] HospitalIn the event this information is protected by the Federal Confidentiality of Alcohol and Drug Abuse Patient Records regulations: The Federal rules restrict any use of the information to criminally investigate or prosecute any alcohol or drug abuse patient.[facility] FOR RECORDS PERTAINING TO PATIENTS WHO ARE [...] BE BASED ON THE PRIMARY CLINICAL RECORDS. [facility] [employer] [facility] provides no warranty or guarantee of the accuracy or completeness of information in this document.
[2025-07-31 10:13] LABS: Hematocrit 38.4 % (36.0-48.0); Hemoglobin 12.8 g/dL (12.0-16.0); Immature Granulocytes Abs Auto 0.04 10^3/uL (0.00-0.03); Immature Granulocytes Pct Auto 0.6 % (0.0-0.5); Lymphocytes Absolute Auto 1.4 10^3/uL (1.2-3.8); Mean Corpuscular HGB Conc 33.3 g/dL (29.9-35.2); Mean Corpuscular Hemoglobin 31.8 pg (26.7-34.0); Mean Corpuscular Volume 95.5 fL (81.0-99.0); Platelet Count 244 10^3/uL (150-450); Red Blood Count 4.02 10^6/uL (4.20-5.40); White Blood Count 6.3 10^3/uL (4.0-11.0)
== END 2025-07-31 09:45 | disposition home or self-care (01) ==
LOC: LAB 09:45
PROVIDERS: PCP Internal Medicine
DX: D80.1 Nonfamilial hypogammaglobulinemia (principal); J32.9 Chronic sinusitis, unspecified
CPT/HCPCS: 36415; 82784; 82785; 85025; 86317; 86581